=== PATIENT | male | born 1950 | race Two or more races ===

== ENCOUNTER → 2020-04-16 13:19 | Outpatient (BNVA) | payer MEDICARE, MEDICAID, SELFPAY | PROVIDERS: PCP Internal Medicine; Referring Provider Internal Medicine; Visit Provider Urology | DX: C61 Malignant neoplasm of prostate (principal); R97.21 Rising PSA following treatment for malignant neoplasm of prostate | CPT/HCPCS: 96372; 99212; J9217 ==

== ENCOUNTER → 2020-04-26 09:57 | Outpatient (REF) | payer MEDICARE, MEDICAID, SELFPAY ==
--- NOTE | 2020-04-26 10:01 | NM_ITS ---
EXAMINATION: NM BONE SCAN OF THE WHOLE BODY CLINICAL INFORMATION: Malignant neoplasm of prostate. Lower back pain. COMPARISON: No previous bone scan or radiographs are available for comparison. TECHNIQUE: Multiple gamma scintillation camera images of the whole body were performed 3 hours following the intravenous administration of 34 mCi Tc-99m MDP. FINDINGS: In the head, no significant abnormalities are present. In the thoracic cage and upper extremities, there is minimally increased activity in the acromioclavicular joint and sternoclavicular joints bilaterally and at the costochondral junction of the right first rib. In the spine, no significant abnormalities are present. In the pelvis, no significant abnormalities are present. In the lower extremities, there is mildly increased activity in both knees, most prominently in the medial compartment of the left knee in the patellar compartment of the right knee. No other definite bony abnormalities are noted. The urinary bladder and faint visualization of both kidneys are noted. NM/NM bone scan whole body IMPRESSION: A few mild nonspecific abnormalities are noted as described above and these are all likely arthritic or traumatic in etiology. None of these abnormalities is strongly suspicious for metastatic disease.
== END ==
LOC: HO.NUCMED 09:57
PROVIDERS: Visit Provider Urology
DX: C61 Malignant neoplasm of prostate (principal); C79.51 Secondary malignant neoplasm of bone
CPT/HCPCS: 78306; A9503

== ENCOUNTER → 2020-08-15 08:53 | Outpatient (BNVA) | payer MEDICARE, MEDICAID, SELFPAY | PROVIDERS: PCP Internal Medicine; Visit Provider Urology | DX: Z13.89 Encounter for screening for other disorder (principal) | CPT/HCPCS: Q3014 ==

== ENCOUNTER 2020-10-08 12:55 | Outpatient (REF) | payer MEDICARE, MEDICAID, SELFPAY ==
[2020-10-08 15:31] LABS: Prostate Specific Antigen 2.89 ng/mL (<0.05-4.0)
[2020-10-12 10:11] LABS: Testosterone, Total 4 ng/dL (250-1100)
== END 2020-10-08 12:56 | disposition home or self-care (01) ==
LOC: HO.LAB 12:55
PROVIDERS: PCP Internal Medicine; Visit Provider Urology
DX: N40.1 Benign prostatic hyperplasia with lower urinary tract symptoms (principal); N13.8 Other obstructive and reflux uropathy; E11.9 Type 2 diabetes mellitus without complications; C61 Malignant neoplasm of prostate; R97.21 Rising PSA following treatment for malignant neoplasm of prostate; Z88.8 Allergy status to other drugs, medicaments and biological substances; Z12.5 Encounter for screening for malignant neoplasm of prostate
CPT/HCPCS: 36415; 84153; 84403; 96402; 99212; J9217

== ENCOUNTER → 2021-02-26 10:39 | Outpatient (BNVA) | payer MEDICARE, MEDICAID, SELFPAY | PROVIDERS: Visit Provider Urology | DX: C61 Malignant neoplasm of prostate (principal) | CPT/HCPCS: 99212 ==

== ENCOUNTER → 2021-04-01 09:56 | Outpatient (BNVA) | payer MEDICARE, MEDICAID, SELFPAY | PROVIDERS: Visit Provider Urology | DX: R97.21 Rising PSA following treatment for malignant neoplasm of prostate (principal); C61 Malignant neoplasm of prostate; C79.51 Secondary malignant neoplasm of bone; M85.80 Other specified disorders of bone density and structure, unspecified site; E11.9 Type 2 diabetes mellitus without complications; Z88.8 Allergy status to other drugs, medicaments and biological substances; Z79.899 Other long term (current) drug therapy | CPT/HCPCS: 96402; 99212; J9217 ==

== ENCOUNTER 2021-04-17 10:23 | Outpatient (REF) | payer MEDICARE, MEDICAID, SELFPAY | END 2021-04-17 10:24 | disposition home or self-care (01) | LOC: HO.LAB 10:23 | PROVIDERS: Visit Provider Internal Medicine | DX: Z20.822 Contact with and (suspected) exposure to COVID-19 (principal) | CPT/HCPCS: C9803; U0003; U0005 ==

== ENCOUNTER 2021-06-27 08:39 | Outpatient (REF) | payer MEDICARE, MEDICAID, SELFPAY ==
--- NOTE | ~2021-06-27 | MM_ITS ---
EXAMINATION: BONE DENSITOMETRY CLINICAL INDICATION: Osteopenia. COMPARISON: This is the patient's baseline examination. TECHNIQUE: Using a [employer] DXA System (software version: 13.1) manufactured by [employer], dual-energy x-ray absorptiometry was performed of the lumbar spine and left hip. The images are of good technical quality. Summary results are attached. FINDINGS: AP SPINE L1-L4: BMD 1.074 g/cm2, Z-score -1.3, T-score -1.2, osteopenia. LEFT FEMUR, NECK: BMD 0.762 g/cm2, Z-score -1.5, T-score -2.4, osteopenia. LEFT FEMUR, TOTAL: BMD 0.939 g/cm2, Z-score -0.8, T-score -1.1, osteopenia. IDENTIFIED RISK FACTORS: None listed. HISTORY OF FRACTURE: None listed. MEDICATIONS: Multivitamin. MM/XR DEXA axial skeleton IMPRESSION: 1. DIAGNOSIS: Osteopenia based on the lowest T-score value of -2.4 in the femoral neck applying World Health Organization criteria. 2. 10-YEAR FRACTURE RISK PREDICTION, FRAX: Major osteoporotic fracture (clinical spine, forearm, hip or shoulder) 4.9%. Hip fracture 1.5%. 3. Treatment Recommendations: NOF guidelines recommend consideration for treatment in postmenopausal women and men age 50 and older presenting with the following: -A hip or vertebral (clinical or morphometric) fracture. -T-score less than or equal to -2.5 at the femoral neck or spine after appropriate evaluation to exclude secondary causes. -Low bone mass at the hip or spine and a 10-year fracture probability by FRAX of greater than or equal to 3% for hip fracture or greater than or equal to 20% for major osteoporotic fracture based on the [place] adapted WHO algorithm. 4. Other Recommendations: All treatment decisions require clinical judgment and consideration of individual patient factors, including patient preferences, comorbidities, previous drug use, risk factors not captured in the FRAX model (e.g. frailty, falls, vitamin D deficiency, increased bone turnover, interval significant decline in bone density) and possible under or overestimation of fracture risk by FRAX. Additional medical evaluation for secondary cause of low bone mineral density may be appropriate. FUTURE SCAN RECOMMENDATION: People with diagnosed cases of osteoporosis or at high risk for fracture should have regular bone mineral density tests. For patients eligible for Medicare, routine testing is allowed once every 2 years. The testing frequency can be increased to one year for patients who have rapidly progressing disease, those who are receiving or discontinuing medical therapy to restore bone mass, or have additional risk factors.
== END 2021-06-27 08:40 | disposition home or self-care (01) ==
LOC: HO.MAMMO 08:39
PROVIDERS: Visit Provider Urology
DX: Z13.820 Encounter for screening for osteoporosis (principal); M85.88 Other specified disorders of bone density and structure, other site; C61 Malignant neoplasm of prostate; R97.21 Rising PSA following treatment for malignant neoplasm of prostate
CPT/HCPCS: 77080

== ENCOUNTER → 2021-07-04 09:56 | Outpatient (BNVA) | payer MEDICARE, MEDICAID, SELFPAY | PROVIDERS: Visit Provider Urology | DX: R97.21 Rising PSA following treatment for malignant neoplasm of prostate (principal); C61 Malignant neoplasm of prostate; M85.80 Other specified disorders of bone density and structure, unspecified site | CPT/HCPCS: 99212 ==

== ENCOUNTER 2021-09-22 08:37 | Outpatient (REF) | payer MEDICARE, MEDICAID, SELFPAY ==
[2021-09-22 10:23] LABS: Prostate Specific Antigen 1.85 ng/mL (<0.05-4.0)
[2021-09-26 13:32] LABS: Testosterone, Total 5 ng/dL (250-1100)
== END 2021-09-22 08:38 | disposition home or self-care (01) ==
LOC: HO.LAB 08:37
PROVIDERS: PCP Internal Medicine; Visit Provider Urology
DX: Z12.5 Encounter for screening for malignant neoplasm of prostate (principal); C61 Malignant neoplasm of prostate
CPT/HCPCS: 36415; 84153; 84403

== ENCOUNTER → 2021-09-30 09:12 | Outpatient (BNVA) | payer MEDICARE, MEDICAID, SELFPAY | PROVIDERS: PCP Internal Medicine; Visit Provider Urology | DX: C61 Malignant neoplasm of prostate (principal); M85.80 Other specified disorders of bone density and structure, unspecified site | CPT/HCPCS: 96372; 96402; 99212; J0897; J9217 ==

== ENCOUNTER → 2022-01-09 09:30 | Outpatient (REF) | payer MEDICARE, MEDICAID, SELFPAY ==
--- NOTE | ~2022-01-09 | NM_ITS ---
EXAMINATION: DE BONE SCAN OF THE WHOLE BODY CLINICAL INFORMATION: Malignant neoplasm of prostate. COMPARISON: The previous bone scan dated 04/26/2020 is available for comparison. TECHNIQUE: Multiple gamma scintillation camera images of the whole body were performed 3.25 hours following the intravenous administration of 36 mCi Tc-99m MDP. FINDINGS: In the head, there is a small focus of mildly increased activity in the left temporomandibular joint region. There are also mild foci of increased activity in the anterior mandible, likely due to dental disease. In the thoracic cage and upper extremities, there is minimally increased activity in the acromioclavicular and sternoclavicular joints bilaterally. In the spine, there is a moderately intense small focus of increased activity present near the midline in the L5 vertebral body. There is minimal prominence of the spinous processes of L2 and L3. In the pelvis, no significant abnormalities are present. In the lower extremities, there is mildly increased activity diffusely in the left knee and in the right patella and in a small focus in the mid tibial plateau on the right all likely degenerative or traumatic. There is mildly increased activity in the proximal right foot also likely arthritic or traumatic. No other definite bony abnormalities are noted. The urinary bladder and faint visualization of both kidneys are noted. Compared to the previous bone scan dated 04/26/2020, the prominent abnormality in the L5 vertebral body is new. The small mild abnormality in the left temporomandibular joint region is also new. An abnormality previously present in the medial compartment of the left knee was much more prominent than mild abnormality present at this site on the current study. The remainder the scan is unchanged. DE/DE bone scan whole body IMPRESSION: 1. A prominent new abnormality in the L5 vertebral body is strongly suspicious for a metastasis. This could be further characterized with MRI of the lumbar spine, performed without and with intravenous contrast. 2. An additional abnormality in the left temporomandibular joint region is also suspicious for metastasis and is also new. 3. A few additional mild nonspecific abnormalities are noted as described above and these are all likely arthritic or traumatic in etiology. None of these abnormalities is strongly suspicious for metastatic disease.
[2022-01-09 11:23] LABS: Alanine Aminotransferase 30 U/L (0-40); Alkaline Phosphatase 70 U/L (39-117); Aspartate Amino Transferase 26 U/L (5-37); Bilirubin Direct < 0.2 mg/dL (0.0-0.5); Bilirubin Total 0.3 mg/dL (0.0-1.0); Total Protein 7.5 g/dL (6.5-8.0)
[2022-01-09 11:33] LABS: Prostate Specific Antigen 4.08 ng/mL (<0.05-4.0)
[2022-01-14 15:47] LABS: Testosterone, Total 5 ng/dL (250-1100)
== END ==
LOC: HO.NUCMED 09:30
PROVIDERS: Visit Provider Urology
DX: Z12.5 Encounter for screening for malignant neoplasm of prostate (principal); C61 Malignant neoplasm of prostate; C79.51 Secondary malignant neoplasm of bone; R97.21 Rising PSA following treatment for malignant neoplasm of prostate; E29.1 Testicular hypofunction
CPT/HCPCS: 36415; 78306; 80076; 84153; 84403; A9503

== ENCOUNTER → 2022-01-22 10:19 | Outpatient (BNVA) | payer MEDICARE, MEDICAID, SELFPAY | PROVIDERS: PCP Internal Medicine; Visit Provider Urology | DX: R97.21 Rising PSA following treatment for malignant neoplasm of prostate (principal); C61 Malignant neoplasm of prostate; M85.80 Other specified disorders of bone density and structure, unspecified site | CPT/HCPCS: 99212 ==

== ENCOUNTER 2022-03-18 10:15 | Outpatient (REF) | payer MEDICARE, MEDICAID, SELFPAY ==
[2022-03-18 11:19] LABS: Estimated Glomerular Filt Rate > 60
[2022-03-18 11:33] LABS: Prostate Specific Antigen 2.77 ng/mL (<0.05-4.0)
[2022-03-22 13:17] LABS: Testosterone, Total 2 ng/dL (250-1100)
== END 2022-03-18 10:16 | disposition home or self-care (01) ==
LOC: HO.LAB 10:15
PROVIDERS: Visit Provider Urology
DX: Z12.5 Encounter for screening for malignant neoplasm of prostate (principal); R97.21 Rising PSA following treatment for malignant neoplasm of prostate
CPT/HCPCS: 36415; 82565; 84153; 84403

== ENCOUNTER → 2022-04-03 08:43 | Outpatient (BNVA) | payer MEDICARE, MEDICAID, SELFPAY | PROVIDERS: Visit Provider Urology | DX: M85.80 Other specified disorders of bone density and structure, unspecified site (principal); C61 Malignant neoplasm of prostate; R97.21 Rising PSA following treatment for malignant neoplasm of prostate | CPT/HCPCS: 96372; 96402; 99212; J0897; J9217 ==

== ENCOUNTER 2022-04-30 13:15 | Outpatient (AMB) | payer MEDICARE, MEDICAID, SELFPAY ==
--- NOTE | 2022-04-30 13:21 | MHC.OFFVIS ---
Intake Intake Visit Reasons: Prostate cancer- 1month follow up Intake Note: Patient is present for Follow Up Urology Medication: Tamsulosin, Abiraterone, Prednisone Blood Thinner: Allergies metformin Allergy (Intermediate, Verified 04/15/23 10:07) Stomach Upset HPI HPI Comments History of Present Illness Details Christiano is a pleasant male. He is a patient of Dr. Coronado. He is seen for the following urologic conditions - prostate cancer Thai translation performed in office by qualified biomedical engineering supervisor Imaging shows some progression of spinal metastatic disease Is feeling pain in L4-L5 region Discussed cycling abiraterone 1 month on and 1 month off - there is some data to suggest minimizing clonal expansion through cyclic anti-androgen use Discussed referral to Oncology for question of chemotherapy Will also referred to Radiation Oncology at [facility] for assessment up of 177 tagged therapy Prostate cancer Justice 9 initial therapy radiation in [place] with injections 2013 - Last Lupron 04/07 Castrate resistant non metastatic prostate cancer Diagnosed 2015 Initial pathology Jennifer 7 and 9 Initial therapy external beam radiation with 2 years of hormones Subsequent slight rise in PSA and was started on Casodex PSA - 08/02 .4, 05/04 .4, 04/05 2.0, 08/04 2.3, 10/04 2.9 T 4, 04/06 7.0, 06/07 T 3, 10/05 1.8 T 5, 01/05 4.1 T5, 04/07 2.7 T2 Imaging - 05/05 bone scan negative - 06/07 DEXA scan osteopenia - 01/05 Bone Scan New L5 changes - 01/05 PT-CT [facility] multiple small spinal metastases and question of kim involvement Current therapy GnRH with anti androgen initiated 01/04 Lower urinary tract symptoms Urgency and frequency Good response to tamsulosin PFSH Medical History Hemorrhoids Hematochezia Anemia Diabetes mellitus Prostate cancer Surgical History History of appendectomy Family History Mother Diabetes Father Cancer Social History Household Members: Spouse Housing: Apartment Alcohol intake: former Patient Tobacco Use Status: Never used Tobacco service: No Current occupational status: retired Review of Systems Const Denies chills and Denies fever(s) Card Reports no additional complaints and Denies syncope Resp Denies cough GI Denies abdominal pain and Denies heartburn Reports as per HPI and Denies change in libido Neuro Denies syncope Psych Denies change in libido Endo Denies change in libido Physical Exam Const General: cooperative, healthy appearing, comfortable and no acute distress Orientation/consciousness: patient oriented x3 HEENT Face and sinus: Yes normal facial exam Mouth: moist mucous membranes Neck Neck: Yes normal visual inspection, Yes full ROM and Yes trachea midline Chest Chest palpation & inspection: normal inspection of the chest Resp Effort & Inspection: normal respiratory effort, able to speak in complete sentences and no respiratory distress GI Inspection: Yes normal to inspection Back/Spine/Pelvis Cervical Spine: normal cervical lordosis Thoracic/Lumbar Spine: thoracic and lumbar spine normal to inspection Skin General skin exam: no rashes or lesions noted Neuro General: patient oriented x3, gait normal, tone normal and moves all extremities Extrem General: Yes normal to inspection and Yes capillary refill normal Assessment & Plan Assessment & Plan (1) Prostate cancer metastatic to bone: Code(s): C61 - Malignant neoplasm of prostate; C79.51 - Secondary malignant neoplasm of bone (2) Osteopenia due to cancer therapy: Code(s): M85.80 - Other specified disorders of bone density and structure, unspecified site Plan Bone scan Metastatic prostate cancer Orders: Orders NM bone scan whole body 04/30/22 C79.51 - Secondary malignant neoplasm of bone, C61 - Malignant neoplasm of prostate Referrals Hematology & Oncology Referral C61 - Malignant neoplasm of prostate, C79.51 - Secondary malignant neoplasm of bone Patient Instructions: Imaging studies, laboratory and physical exam results were discussed and reviewed in detail. No major barriers to patient understanding were identified. An opportunity to ask questions regarding the treatment plan was provided. All questions were answered. The patient expressed understanding and agreement with the above treatment plan. The patient is aware they should contact our office by phone for worsening of their current condition or the appearance of new urologic symptoms. Compliance is encouraged with any medications and followup testing that is ordered. It is a privilege to participate in the urologic care of your patient. If you have any questions or concerns regarding treatment for the above conditions, or other urologic issues, please do not hesitate to contact me. The office telephone contact is [phone]. This note is constructed using voice recognition software. While every effort has been made to ensure accuracy c web developer errors may have been included. Yours sincerely, Dr Mario Al MD, [facility] - Urology Providers of Expert, Compassionate Care for the Genitourinary System Coding Level of Care Code Est Pt Level 3 (32035) Diagnoses Prostate cancer metastatic to bone C61; C79.51 Osteopenia due to cancer therapy M85.80
== END 2022-04-30 14:40 | disposition home or self-care (01) ==
LOC: HO.HUSH 13:16
PROVIDERS: Visit Provider Urology
DX: C61 Malignant neoplasm of prostate (principal); C79.51 Secondary malignant neoplasm of bone; M85.80 Other specified disorders of bone density and structure, unspecified site
CPT/HCPCS: 99213; 99499

== ENCOUNTER → 2022-04-30 13:15 | Outpatient (BNVA) | payer MEDICARE, MEDICAID, SELFPAY | PROVIDERS: Visit Provider Urology | DX: C61 Malignant neoplasm of prostate (principal); C79.51 Secondary malignant neoplasm of bone; M85.80 Other specified disorders of bone density and structure, unspecified site | CPT/HCPCS: 99212 ==

== ENCOUNTER → 2022-06-18 10:48 | Outpatient (REF) | payer MEDICARE, MEDICAID, SELFPAY ==
--- NOTE | ~2022-06-18 | NM_ITS ---
EXAMINATION: NM BONE SCAN OF THE WHOLE BODY CLINICAL INFORMATION: Secondary malignant neoplasm of the bone. COMPARISON: 01/09/2022 TECHNIQUE: Multiple gamma scintillation camera images of the whole body were performed 2.5 hours following the intravenous administration of 36 mCi Tc-99m MDP. FINDINGS: In the head, once again there is uptake in the region of the left zygoma/temporal region/TMJ. This is similar to previous. There is also some spotty uptake in the maxillary and mandibular bones similar to previous. Possible dental disease here. In the thoracic cage and upper extremities, visualized rib uptake is felt to be within normal limits. Partially visualized upper extremities are comparable to previous. Some uptake in the left shoulder and left AC joint may be degenerative in nature. In the spine, once again some mottled activity in the thoracic spine. Once again intense activity in the region of L5. Similar to previous. More minimal activity in the region of L2 and L3 but this is also similar to previous. Not felt to be increasing. This could be degenerative in nature. In the pelvis, unremarkable. Urine contamination is noted. In the lower extremities, some spotty uptake about the knees similar to previous. Likely degenerative in nature. No other definite bony abnormalities are noted. The urinary bladder and faint visualization of both kidneys are noted. NM/NM bone scan whole body IMPRESSION: This exam is very comparable to previous. Areas of uptake described were seen previously. Importantly no new focus is identified.
== END ==
LOC: HO.NUCMED 10:48
PROVIDERS: Visit Provider Urology
DX: C61 Malignant neoplasm of prostate (principal); C79.51 Secondary malignant neoplasm of bone
CPT/HCPCS: 78306; A9503

== ENCOUNTER 2022-07-24 08:13 | Emergency (ER) | payer MEDICARE, MEDICAID, SELFPAY ==
--- NOTE | ~2022-07-24 | XR_ITS ---
EXAMINATION: XR ABDOMEN COMPLETE CLINICAL INDICATION: Constipation. COMPARISON: None TECHNIQUE: 2 views of the abdomen. FINDINGS: There is a nonobstructive bowel gas pattern. Mild to moderate stool seen within the colon distally to the rectum. No abnormal calcifications are seen. Mild multilevel degenerative changes are seen in the thoracolumbar spine. XR/XR abdomen min 2V IMPRESSION: 1. Nonobstructive bowel gas pattern. 2. Mild to moderate colonic stool burden.
[2022-07-24 08:24] VITALS: BP 160/66; PULSE 68; RESP 18; TEMP 36.6; O2SAT 98; BMI 28.1
[2022-07-24 09:24] LABS: MANUAL DIFF FLAG NO
[2022-07-24 09:34] LABS: Basophils Absolute Auto 0.1 X10*3/uL (0.0-0.2); Basophils Percent Auto 1.2 % (0-2); Eosinophils Absolute Auto 0.3 X10*3/uL (0.0-0.4); Eosinophils Percent Auto 3.4 % (0-4); Hematocrit 40.1 % (42.0-52.0); Hemoglobin 13.2 g/dl (14.0-18.0); Imm Gran Abs Auto 0.01 X10*3/uL (0.00-0.03); Imm Gran Pct Auto 0.1 % (0.0-0.4); Lymphocytes Absolute Auto 2.4 X10*3/uL (1.2-4.9); Lymphocytes Percent Auto 31.8 % (20-40); Mean Corpuscular HGB Conc 32.9 g/dl (31.0-36.0); Mean Corpuscular Hemoglobin 25.1 pg (27.0-33.0); Mean Corpuscular Volume 76.4 fL (80.0-98.0); Mean Platelet Volume 10.1 fL (9.4-12.4); Monocytes Absolute Auto 0.6 X10*3/uL (0.1-1.2); Monocytes Percent Auto 8.2 % (2-11); Neutrophils Absolute Auto 4.1 x10*3/uL (2.0-8.3); Neutrophils Percent Auto 55.3 % (45-73); Platelet Count 274 X10*3/uL (160-400); Red Blood Count 5.25 X10*6/uL (4.60-5.80); Red Cell Distribution Width 13.9 % (11.0-16.0); White Blood Count 7.4 X10*3/uL (4.8-10.8)
[2022-07-24 09:53] LABS: Alanine Aminotransferase 16 U/L (0-40); Albumin Level 3.8 g/dL (3.5-5.0); Alkaline Phosphatase 60 U/L (39-117); Anion Gap 12 (12-20); Aspartate Amino Transferase 19 U/L (5-37); Bilirubin Total 0.5 mg/dL (0.0-1.0); Blood Urea Nitrogen 18 mg/dL (9-16); Calcium 9.4 mg/dL (8.4-10.2); Carbon Dioxide 28 mmol/L (22-29); Chloride 103 mmol/L (96-108); Creatinine Clr Calc Pharmacy 77.8; Estimated Glomerular Filt Rate > 60; Glucose Random 113 mg/dL (60-115); Potassium 4.4 mmol/L (3.3-5.1); Sodium 139 mmol/L (135-145); Total Protein 6.7 g/dL (6.5-8.0)
--- NOTE | 2022-07-24 10:33 | ED.GENADULT ---
HPI - General Adult General Chief complaint: Abdominal Pain Stated complaint: constipation Time Seen by Provider: 07/24/22 08:58 Source: patient Mode of arrival: ambulatory Limitations: no limitations History of Present Illness HPI narrative: 71-year-old male presents with constipation. He has been having increased constipation over the last 4-5 days. He normally runs constipated takes MiraLax. He has been trying MiraLax without improvement. He does complain of some mild abdominal discomfort but no severe pain. Also reports some distention. He is passing flatus. Denies any history of abdominal surgeries. He says the symptoms are worse when he feels like he has to strain better when he rests. He has had no fevers or chills. Denies nausea vomiting. He denies any urinary frequency, urgency or dysuria. Symptoms are similar to previous but moderately worse. Related Data Home Medications Medication Instructions Recorded Confirmed amlodipine 10 mg tablet (Norvasc) 10 mg PO DAILY 04/16/20 04/29/22 atorvastatin 80 mg tablet (Lipitor) 80 mg PO DAILY 04/16/20 04/29/22 chlorhexidine gluconate 0.12 % 5 ml PO DAILY 04/16/20 04/29/22 mouthwash dulaglutide 1.5 mg/0.5 mL 0.5 mg subcut DAILY 04/16/20 04/29/22 subcutaneous pen injector (Trulicity) empagliflozin 25 mg tablet 25 mg PO DAILY 04/16/20 04/29/22 evolocumab 140 mg/mL subcutaneous 140 mg subcut Q2W 04/16/20 04/29/22 pen injector (Repatha SureFerminick) ezetimibe 10 mg tablet (Zetia) 10 mg PO DAILY 04/16/20 04/29/22 omeprazole 20 mg capsule,delayed 20 mg PO DAILY 04/16/20 04/29/22 release diclofenac sodium 1 % topical gel 1 g topical DAILY 03/30/22 04/29/22 (Voltaren Arthritis Pain) tamsulosin 0.4 mg capsule mg PO 04/30/22 Previous Rx's Medication Instructions Recorded prednisone 2.5 mg tablet 2.5 mg PO BID 30 days #60 tabs 04/01/21 abiraterone 250 mg tablet 1,000 mg PO DAILY 30 days #120 tabs 04/13/22 glycerin (adult) 1 supp MS DAILY PRN constipation 07/24/22 #12 ea magnesium hydroxide 400 mg/5 mL 5 ml PO DAILY PRN constipation 07/24/22 oral suspension (Milk of Magnesia) #355 mL Allergies Allergy/AdvReac Type Severity Reaction Status Date / Time metformin Allergy Intermediate Stomach Verified 04/30/22 13:22 Upset Review of Systems Review of Systems: CONSTITUTIONAL: Denies weight loss, fever and chills. HEENT: Denies changes in vision and hearing. RESPIRATORY: Denies SOB and cough. CV: Denies palpitations no CP. GI: Denies nausea, vomiting and diarrhea. : Denies dysuria and urinary frequency. MSK: Denies myalgia and joint pain. SKIN: Denies rash and pruritus. NEUROLOGICAL: Denies headache and syncope. PSYCHIATRIC: Denies recent changes in mood. Denies anxiety and depression. All other ROS are negative unless in HPI PMFSH Past Medical History Medical History Anemia Diabetes mellitus Hematochezia Hemorrhoids Prostate cancer Surgical History History of appendectomy Family History Family History Mother Diabetes Father Cancer Social History Social History Household Members: Spouse Housing: Apartment Alcohol intake: former Patient Tobacco Use Status: Never used Tobacco Advance Directives: No Advance Directives Information Provided: Yes service: No Current occupational status: retired Physical Exam ED Vital Signs: Vital Signs - 24 hr 07/24/22 08:24 Temperature 97.8 F Pulse Rate 68 Respiratory Rate 18 Blood Pressure 160/66 H Pulse Oximetry 98 Oxygen Delivery Method Room Air BMI result Body Mass Index 28.1 GEN: Well developed, no acute distress, alert, oriented HEENT: Normocephalic, atraumatic, normal external ears, nose appears normal, no oropharyngeal edema or exudates Eyes: Normal to appearance Neck: Supple, no lymphadenopathy Respiratory: Talks in complete sentences, no respiratory distress, clear to auscultation bilaterally Cardiovascular: Regular rate and rhythm, no murmurs rubs or gallops Abdomen: Soft, nontender, nondistended, no guarding, no rebound Back: No CVA tenderness Extremities: No clubbing cyanosis or edema Neurologic: No focal neurologic deficits, cranial nerves 2-12 intact, strength is 5/5 bilaterally, gait normal Skin: No rash Course Course Course Narrative: 71-year-old male with history of chronic constipation presents with abdominal discomfort, constipation. Is passing some flatus. Has some very mild distension but no tenderness, rebound or guarding. Will obtain an x-ray to rule out SBO although I doubt this diagnosis. Patient requires no analgesics. Consider milk of magnesia/magnesium citrate, etc.. Reevaluation(s) Reevaluation #1: The workup is complete. Patient is comfortable. Abdomen remains nontender. We discussed constipation care. He will be discharged at this time to follow-up on an as-needed basis. Time: 12:43 Medications Administered Discontinued Medications Generic Name Dose Route Start Last Admin Trade Name Freq PRN Reason Stop Dose Admin Magnesium Hydroxide 30 ml 07/24/22 10:42 07/24/22 11:19 Milk Of Magnesia 30 Ml Oral.Susp PO 07/24/22 10:43 30 ml ONCE ONE Administration Medical Decision Making Medical Decision Making [facility] Narrative: 71-year-old male presents constipation, difficulty with defecation. Exam was benign. Order laboratory analysis, x-ray, re-evaluate. Patient may require anti constipation medications depending on the diagnosis. Differential Diagnosis Differential Diagnoses: The differential diagnosis associated with the presentation includes (Constipation, bowel obstruction, ileus, slow transit, bloating) Admission/Observation Consideration of admission/observation: Escalation of care including admission/observation considered Lab Data [facility] Lab Attestation statement: I reviewed the patient's lab results. 07/24/22 09:21 07/24/22 09:21 Labs: Lab Results 07/24/22 07/24/22 Range/Units 09:21 09:21 WBC 7.4 (4.8-10.8) X10*3/uL RBC 5.25 (4.60-5.80) X10*6/uL Hgb 13.2 L (14.0-18.0) g/dl Hct 40.1 L (42.0-52.0) % MCV 76.4 L (80.0-98.0) fL MCH 25.1 L (27.0-33.0) pg MCHC 32.9 (31.0-36.0) g/dl RDW 13.9 (11.0-16.0) % Plt Count 274 (160-400) X10*3/uL MPV 10.1 (9.4-12.4) fL Immature Gran % (Auto) 0.1 (0.0-0.4) % Neut % (Auto) 55.3 (45-73) % Lymph % (Auto) 31.8 (20-40) % Hudspeth % (Auto) 8.2 (2-11) % Eos % (Auto) 3.4 (0-4) % Baso % (Auto) 1.2 (0-2) % Lymph # (Auto) 2.4 (1.2-4.9) X10*3/uL Hudspeth # (Auto) 0.6 (0.1-1.2) X10*3/uL Eos # (Auto) 0.3 (0.0-0.4) X10*3/uL Baso # (Auto) 0.1 (0.0-0.2) X10*3/uL Abs Immat Gran (auto) 0.01 (0.00-0.03) X10*3/uL Absolute Neuts (auto) 4.1 (2.0-8.3) x10*3/uL Absolute Nucleated RBC 0.000 (0.0-0.012) X10*3/uL Nucleated RBC % (auto) 0.0 (0.0-0.2) /100WBC Sodium 139 (135-145) mmol/L Potassium 4.4 (3.3-5.1) mmol/L Chloride 103 (96-108) mmol/L Carbon Dioxide 28 (22-29) mmol/L Anion Gap 12 (12-20) BUN 18 H (9-16) mg/dL Creatinine 0.89 (0.5-1.4) mg/dL Estim Creat Clear Calc 77.8 Estimated GFR > 60 Random Glucose 113 (60-115) mg/dL Calcium 9.4 (8.4-10.2) mg/dL Total Bilirubin 0.5 (0.0-1.0) mg/dL AST 19 (5-37) U/L ALT 16 (0-40) U/L Alkaline Phosphatase 60 (39-117) U/L Total Protein 6.7 (6.5-8.0) g/dL Albumin 3.8 (3.5-5.0) g/dL Independent Interpretation I performed an independent interpretation of an: Plain X-Ray (Of treatment: Moderate stool burden, no dilated bowel, no air-fluid levels) Radiology Impression Discussion of test interpretation with radiology: I have reviewed the radiologist's reading. (IMPRESSION: 1. Nonobstructive bowel gas pattern. 2. Mild to moderate colonic stool burden. Dictated By:Tom Dee MDSigned By:<Electronically signed by Tom Dee MD in OV>07/24/22 1018) Tests considered The following testing was considered but not selected: CT scan Prescription Management I considered prescription management with: Pain Medication Discharge Plan Discharge Clinical Impression: Constipation Patient Disposition: Home, Self-Care Instructions: Constipation (ED), Fleet Enema (ED) Prescriptions: New magnesium hydroxide [Milk of Magnesia] 400 mg/5 mL suspension 5 ml PO DAILY PRN (Reason: constipation) Qty: 355 0RF glycerin (adult) Suppository 1 supp MS DAILY PRN (Reason: constipation) Qty: 12 0RF No Action abiraterone 250 mg tablet 1,000 mg PO DAILY 30 Days Qty: 120 5RF Rx Instructions: must be taken on empty stomach, at least 1 hr before or 2 hrs after a meal/food Repatha SureClick 140 mg/mL pen injector 140 mg subcut Q2W ezetimibe [Zetia] 10 mg tablet 10 mg PO DAILY amlodipine [Norvasc] 10 mg tablet 10 mg PO DAILY chlorhexidine gluconate 0.12 % mouthwash 5 ml PO DAILY atorvastatin [Lipitor] 80 mg tablet 80 mg PO DAILY Trulicity 1.5 mg/0.5 mL pen injector 0.5 mg subcut DAILY Jardiance 25 mg tablet 25 mg PO DAILY omeprazole 20 mg capsule,delayed release(DR/EC) 20 mg PO DAILY prednisone 2.5 mg tablet 2.5 mg PO BID 30 Days Qty: 60 5RF tamsulosin 0.4 mg capsule PO diclofenac sodium [Voltaren Arthritis Pain] 1 % gel 1 g topical DAILY Referrals: [place],Zena, SCARF GLUER [Primary Care Provider] - Print Language: Uzbek
[2022-07-24] MEDS: Milk of Magnesia 30 ML ORAL.SUSP PO (11:19)
[2022-07-24 12:53] VITALS: BP 137/75; PULSE 70; RESP 18; O2SAT 94
== END 2022-07-24 12:55 | disposition home or self-care (01) ==
PROVIDERS: Emergency Provider Emergency Medicine; PCP Registered Nurse
DX: R10.9 Unspecified abdominal pain (principal); K59.00 Constipation, unspecified; D64.9 Anemia, unspecified; E11.9 Type 2 diabetes mellitus without complications
CPT/HCPCS: 36415; 74019; 80053; 85025; 99283; 99284

== ENCOUNTER → 2022-07-28 08:00 | Outpatient (BNVA) | payer MEDICARE, MEDICAID, SELFPAY | PROVIDERS: PCP Registered Nurse; Visit Provider Urology | DX: C61 Malignant neoplasm of prostate (principal); C79.51 Secondary malignant neoplasm of bone; M85.80 Other specified disorders of bone density and structure, unspecified site | CPT/HCPCS: Q3014 ==

== ENCOUNTER 2022-09-15 09:41 | Outpatient (REF) | payer MEDICARE, MEDICAID, SELFPAY ==
[2022-09-15 10:57] LABS: Prostate Specific Antigen 3.18 ng/mL (<0.05-4.0)
[2022-09-20 12:33] LABS: Testosterone, Total 3 ng/dL (250-1100)
== END 2022-09-15 09:42 | disposition home or self-care (01) ==
LOC: HO.LAB 09:41
PROVIDERS: Urology; Visit Provider Psychiatry & Neurology Neurology
DX: Z12.5 Encounter for screening for malignant neoplasm of prostate (principal); C61 Malignant neoplasm of prostate; C79.51 Secondary malignant neoplasm of bone
CPT/HCPCS: 36415; 84153; 84403

== ENCOUNTER → 2022-09-25 13:40 | Outpatient (BNVA) | payer MEDICARE, MEDICAID, SELFPAY | PROVIDERS: PCP Registered Nurse; Visit Provider Urology | DX: C61 Malignant neoplasm of prostate (principal); C79.51 Secondary malignant neoplasm of bone; M85.80 Other specified disorders of bone density and structure, unspecified site; R97.21 Rising PSA following treatment for malignant neoplasm of prostate | CPT/HCPCS: 96402; 99212; J9217 ==

== ENCOUNTER 2022-12-18 08:47 | Outpatient (REF) | payer MEDICARE, MEDICAID, SELFPAY ==
[2022-12-18 20:07] LABS: Prostate Specific Antigen 1.86 ng/mL (<0.05-4.0)
[2022-12-25 01:14] LABS: Testosterone, Total <1 ng/dL (250-1100)
== END 2022-12-18 08:48 | disposition home or self-care (01) ==
LOC: HO.LAB 08:47
PROVIDERS: PCP Urology; Visit Provider Urology
DX: Z12.5 Encounter for screening for malignant neoplasm of prostate (principal); C61 Malignant neoplasm of prostate; R97.20 Elevated prostate specific antigen [PSA]
CPT/HCPCS: 36415; 84153; 84403

== ENCOUNTER 2022-12-21 11:34 | Outpatient (AMB) | payer MEDICARE, MEDICAID, SELFPAY ==
--- NOTE | 2022-12-21 11:52 | A.OFFVIS_ITS ---
Intake Vital Signs 12/21/22 11:53 Height 5 ft 7 in Weight 200 lb 2.876 oz BMI 31.3 BP 154/74 H Blood Pressure Location Lt brachial Position Sitting Pulse 63 Intake Visit Reasons: Chronic Constipation Intake Note: Christiano presents in office as a new.patient for Chronic constipation. 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 Patient reports that he has been constipated and use MiraLax without any help, however now that he changed his diet he feels like he is doing better. Patient increase fluid in his diet as well as eating more soups and states that he is feeling better. Patient denies any melena, hematochezia, un intentional weight loss or ribbon like stools. Patient denies any dyspepsia, dysphagia or odynophagia. Patient denies any GI concerning symptoms today. When discussing with patient his history and his current treatment he tells me that he is seen gastroenterology at [facility]. He goes to see them in the [place], [place]. Patient had colonoscopy that showed rectal tumor and patient is seeing oncologist at [facility]. Patient reports to me that all his providers are at [facility] except for his PCP. PFSH Medical History Anemia Diabetes mellitus Hematochezia Hemorrhoids Prostate cancer Surgical History History of appendectomy Family History Mother Diabetes Father Cancer Social History Household Members: Spouse Housing: Apartment Alcohol intake: former Patient Tobacco Use Status: Never used Tobacco service: No Current occupational status: retired Review of Systems Const Denies weight gain and Denies weight loss ENT Reports no additional complaints, Denies dysphagia and Denies odynophagia Card Reports no additional complaints Resp Reports no additional complaints GI Denies abdominal pain, Denies belching, Denies melena, Denies bloating, Denies change in bowel habits, Denies dysphagia, Denies excessive flatus, Denies dyspepsia, Denies heartburn, Denies diarrhea, Denies loose stools, Denies nausea, Denies odynophagia and Denies vomiting Reports no additional complaints Musc Reports no additional complaints Neuro Reports no additional complaints Psych Reports no additional complaints Endo Reports no additional complaints Physical Exam Vital Signs: Last Vital Signs Pulse 63 12/21/22 11:53 BP 154/74 H 12/21/22 11:53 BMI result Body Mass Index 31.3 Const General: healthy appearing, no acute distress and well developed Nutritional Appearance: well nourished Orientation/consciousness: patient oriented x3 HEENT Head: Yes normal to inspection, Yes normocephalic and Yes atraumatic Face and sinus: Yes normal facial exam Mouth: Normal oral and palatal mucosa present Throat: Yes posterior oropharynx normal, Yes tonsils normal and Yes uvula midline Eyes General: appearance normal, both eyes and all related structures Neck Neck: Yes normal visual inspection, Yes full ROM and Yes trachea midline Thyroid: Thyroid normal Resp Effort & Inspection: normal respiratory effort, able to speak in complete sentences, no tracheal deviation and symmetric chest movement Auscultation: clear to auscultation bilaterally Cardio Rate: regular rate Heart sounds: S1 normal heart sound present and S2 normal heart sound present GI Inspection: Yes normal to inspection, No distended and Yes obesity Palpation (GI): Soft to palpation, not firm, nontender and No hepatosplenomegaly present Auscultation: normal bowel sounds General: Yes no CVA tenderness Back/Spine/Pelvis Back: no CVA tenderness Skin General skin exam: elasticity normal, turgor normal and dry skin Neuro General: patient oriented x3 Psych Appearance: grossly normal Mental Status: mental status grossly normal Speech and movement: Normal speech and movement present Affect: normal affect Attitude: cooperative Thought process: Normal thought process present Assessment & Plan Assessment & Plan (1) Chronic idiopathic constipation: Code(s): K59.04 - Chronic idiopathic constipation Plan: Patient will be following up with his providers at [facility]. Patient has appointment with them next month. He is agreeable to this plan. Patient will continue MiraLax and diet. Coding Level of Care Code New Pt Level 3 (86837) Diagnoses Chronic idiopathic constipation K59.04 Time Spent (min) 40 Comment 30 minutes spent with patient and additional 10 minutes spent reviewing his records
[2022-12-21 11:53] VITALS: BP 154/74; PULSE 63; BMI 31.3
== END 2022-12-21 12:18 | disposition home or self-care (01) ==
PROVIDERS: PCP Registered Nurse; Visit Provider Nurse Practitioner Family
DX: K59.04 Chronic idiopathic constipation (principal)
CPT/HCPCS: 99203

== ENCOUNTER → 2022-12-21 11:34 | Outpatient (BNVA) | payer MEDICARE, MEDICAID, SELFPAY | PROVIDERS: PCP Registered Nurse; Visit Provider Nurse Practitioner Family | DX: K59.04 Chronic idiopathic constipation (principal); C61 Malignant neoplasm of prostate; C79.51 Secondary malignant neoplasm of bone; C78.5 Secondary malignant neoplasm of large intestine and rectum; M85.80 Other specified disorders of bone density and structure, unspecified site; D63.0 Anemia in neoplastic disease | CPT/HCPCS: 99202 ==

== ENCOUNTER 2023-01-01 09:04 | Outpatient (AMB) | payer MEDICARE, MEDICAID, SELFPAY ==
--- NOTE | 2023-01-01 10:07 | A.OFFVIS_ITS ---
Intake Intake Visit Reasons: 3M PSA/Testo(pending) Intake Note: Patient is present for Follow Up LABS Urology Med: Tamsulosin, Abiraterone Antibiotic Allergy: None Blood Thinner: None Pharmacy: [facility] Allergies metformin Allergy (Intermediate, Verified 01/01/23 10:08) Stomach Upset Medication List - Last Reconciled 01/01/23 by Mario Al MD abiraterone 1,000 mg (4 x 250 mg) PO DAILY 30 days amlodipine (Norvasc) 10 mg PO DAILY atorvastatin (Lipitor) 80 mg PO DAILY diclofenac sodium 1% (Voltaren Arthritis Pain) 1 g topical DAILY dulaglutide (Trulicity) 0.5 mg subcut DAILY empagliflozin 25 mg PO DAILY evolocumab (Repatha SureClick) 140 mg subcut Q2W ezetimibe (Zetia) 10 mg PO DAILY glycerin (adult) 1 supp [place] DAILY PRN magnesium hydroxide (Milk of Magnesia) 5 mL PO DAILY PRN omeprazole 20 mg PO DAILY prednisone 2.5 mg PO BID 30 days tamsulosin 0.4 mg PO 1XD HPI HPI Comments History of Present Illness Details Christiano is a pleasant male. He is a patient of Dr. Coronado. He is seen for the following urologic conditions - prostate cancer Romanian translation performed in office by qualified medical illustrator 01/06 Lab work shows PSA controlled - 1.9 T <1 Continue cycling abiraterone per [facility] 3 month follow-up lab work with PSMA scan Recent diagnosis of colon cancer 07/09 bone scan shows no progression since December Has been cycling abiraterone 1 month on and 1 month off Prostate cancer Jennifer 9 initial therapy radiation in [place] with injections 2013 - Last Lupron 10/06 Castrate resistant non metastatic prostate cancer Diagnosed 2016 Initial pathology Jennifer 7 and 9 Initial therapy external beam radiation with 2 years of hormones Subsequent slight rise in PSA and was started on Casodex PSA - 08/02 .4, 05/04 .4, 04/05 2.0, 08/04 2.3, 10/04 2.9 T 4, 04/06 7.0, 06/07 T 3, 10/05 1.8 T 5, 01/05 4.1 T5, 04/07 2.7 T2, 06/08 1.9, 10/06 3.2 T 3 Imaging - 05/05 bone scan negative - 06/07 DEXA scan osteopenia - 01/05 Bone Scan New L5 changes - 01/05 PT-CT PSMA [facility] multiple small spinal metastases and question of kim involvement - 08/06 bone scan no further progressive changes. Remains with spinal Mets and question of kim involvement. Current therapy GnRH with anti androgen initiated 01/04 Lower urinary tract symptoms Urgency and frequency Good response to tamsulosin PFSH Medical History Anemia Diabetes mellitus Hematochezia Hemorrhoids Prostate cancer Surgical History History of appendectomy Family History Mother Diabetes Father Cancer Social History Household Members: Spouse Housing: Apartment Alcohol intake: former Patient Tobacco Use Status: Never used Tobacco service: No Current occupational status: retired Review of Systems Const Denies chills and Denies fever(s) Card Reports no additional complaints and Denies syncope Resp Denies cough GI Denies abdominal pain and Denies heartburn Reports as per HPI and Denies change in libido Neuro Denies syncope Psych Denies change in libido Endo Denies change in libido Physical Exam Const General: cooperative, healthy appearing, comfortable and no acute distress Orientation/consciousness: patient oriented x3 HEENT Face and sinus: Yes normal facial exam Mouth: moist mucous membranes Neck Neck: Yes normal visual inspection, Yes full ROM and Yes trachea midline Chest Chest palpation & inspection: normal inspection of the chest Resp Effort & Inspection: normal respiratory effort, able to speak in complete sentences and no respiratory distress GI Inspection: Yes normal to inspection Back/Spine/Pelvis Cervical Spine: normal cervical lordosis Thoracic/Lumbar Spine: thoracic and lumbar spine normal to inspection Skin General skin exam: no rashes or lesions noted Neuro General: patient oriented x3, gait normal, tone normal and moves all extremities Extrem General: Yes normal to inspection and Yes capillary refill normal Assessment & Plan Assessment & Plan (1) Prostate cancer metastatic to bone: Code(s): C61 - Malignant neoplasm of prostate; C79.51 - Secondary malignant neoplasm of bone (2) Osteopenia due to cancer therapy: Code(s): M85.80 - Other specified disorders of bone density and structure, unspecified site (3) Rising PSA following treatment for malignant neoplasm of prostate: Code(s): R97.21 - Rising PSA following treatment for malignant neoplasm of prostate Plan 3 month follow-up Prolia, GnRH, PSMA scan Orders: Orders Prostate Specific Antigen 3 Months C61 - Malignant neoplasm of prostate, C79.51 - Secondary malignant neoplasm of bone Testosterone, Total 3 Months C61 - Malignant neoplasm of prostate, C79.51 - Secondary malignant neoplasm of bone PET CT fusion skull to thigh 3 Months C61 - Malignant neoplasm of prostate, C79.51 - Secondary malignant neoplasm of bone Patient Instructions: Imaging studies, laboratory and physical exam results were discussed and reviewed in detail. No major barriers to patient understanding were identified. An opportunity to ask questions regarding the treatment plan was provided. All questions were answered. The patient expressed understanding and agreement with the above treatment plan. The patient is aware they should contact our office by phone for worsening of their current condition or the appearance of new urologic symptoms. Compliance is encouraged with any medications and followup testing that is ordered. It is a privilege to participate in the urologic care of your patient. If you have any questions or concerns regarding treatment for the above conditions, or other urologic issues, please do not hesitate to contact me. The office telephone contact is [phone]. This note is constructed using voice recognition software. While every effort has been made to ensure accuracy copper flotation operator errors may have been included. Yours sincerely, Dr Mario Al MD, HO [facility] - Urology Providers of Expert, Compassionate Care for the Genitourinary System Coding Level of Care Code Est Pt Level 4 (57881) Diagnoses Prostate cancer metastatic to bone C61; C79.51 Osteopenia due to cancer therapy M85.80 Rising PSA following treatment for malignant neoplasm of prostate R97.21
== END 2023-01-01 11:41 | disposition home or self-care (01) ==
PROVIDERS: PCP Registered Nurse; Visit Provider Urology
DX: C61 Malignant neoplasm of prostate (principal); C79.51 Secondary malignant neoplasm of bone; M85.80 Other specified disorders of bone density and structure, unspecified site; R97.21 Rising PSA following treatment for malignant neoplasm of prostate
CPT/HCPCS: 99214

== ENCOUNTER → 2023-01-01 09:04 | Outpatient (BNVA) | payer MEDICARE, MEDICAID, SELFPAY | PROVIDERS: Visit Provider Urology | DX: C61 Malignant neoplasm of prostate (principal); C79.51 Secondary malignant neoplasm of bone; M85.80 Other specified disorders of bone density and structure, unspecified site; R97.21 Rising PSA following treatment for malignant neoplasm of prostate | CPT/HCPCS: 99212 ==

== ENCOUNTER 2023-01-07 10:30 | Outpatient (REF) | payer MEDICARE, MEDICAID, SELFPAY ==
[2023-01-07 13:30] LABS: Creatinine Urine 175.69 mg/dL
[2023-01-07 13:50] LABS: Microalbum/Creatinine Ratio Ur 832.7 ug/mg cr (<30)
== END 2023-01-07 10:31 | disposition home or self-care (01) ==
LOC: HO.HHCL 10:30
PROVIDERS: Visit Provider Registered Nurse
DX: E11.21 Type 2 diabetes mellitus with diabetic nephropathy (principal)
CPT/HCPCS: 82043

== ENCOUNTER 2023-04-05 08:58 | Outpatient (REF) | payer MEDICARE, MEDICAID, SELFPAY ==
[2023-04-05 10:47] LABS: Prostate Specific Antigen 2.46 ng/mL (<0.05-4.0)
== END 2023-04-05 08:59 | disposition home or self-care (01) ==
LOC: HO.LAB 08:58
PROVIDERS: PCP Registered Nurse; Visit Provider Urology
DX: C61 Malignant neoplasm of prostate (principal); C79.51 Secondary malignant neoplasm of bone; Z12.5 Encounter for screening for malignant neoplasm of prostate
CPT/HCPCS: 36415; 84153; 84403

== ENCOUNTER 2023-04-15 09:36 | Outpatient (AMB) | payer MEDICARE, MEDICAID, SELFPAY ==
--- NOTE | 2023-04-15 10:01 | A.OFFVIS_ITS ---
Intake Intake Visit Reasons: Three month follow-up, GnRH, Prolia, PMS a scan Intake Note: Patient is Present for Follow Up/Injection Urology Medication: Abiraterone, Tamsulosin Antibiotic Allergies: none Blood Thinners: None Allergies metformin Allergy (Intermediate, Verified 04/15/23 10:07) Stomach Upset Medication List - Last Reconciled 04/15/23 by Mario Al MD abiraterone 1,000 mg (4 x 250 mg) PO DAILY 30 days amlodipine (Norvasc) 10 mg PO DAILY atorvastatin (Lipitor) 80 mg PO DAILY diclofenac sodium 1% (Voltaren Arthritis Pain) 1 g topical DAILY dulaglutide (Trulicity) 0.5 mg subcut DAILY empagliflozin 25 mg PO DAILY evolocumab (Repatha SureClick) 140 mg subcut Q2W ezetimibe (Zetia) 10 mg PO DAILY glycerin (adult) 1 supp [place] DAILY PRN magnesium hydroxide (Milk of Magnesia) 5 mL PO DAILY PRN omeprazole 20 mg PO DAILY prednisone 2.5 mg PO BID 30 days tamsulosin 0.4 mg PO DAILY 90 days HPI HPI Comments History of Present Illness Details Christiano is a pleasant male. He is a patient of Dr. Coronado. He is seen for the following urologic conditions - prostate cancer Burundian translation performed in office by qualified medical terminologist 04/08 PSA 2.5 - still staying in control Had colostomy for colorectal cancer. Continue cycling abiraterone GnRH and Prolia today Labs in 3 months with PET-CT - will likely consider monthly denosumab 01/06 Lab work shows PSA controlled - 1.9 T <1 Continue cycling abiraterone per [facility] 3 month follow-up lab work with PSMA sca n Recent diagnosis of colon cancer 07/09 bone scan shows no progression since December Has been cycling abiraterone 1 month on and 1 month off Prostate cancer Dumfries 9 initial therapy radiation in [place] with injections 2013 - Last Lupron 10/06 Castrate resistant non metastatic prostate cancer Diagnosed 2015 Initial pathology Dumfries 7 and 9 Initial therapy external beam radiation with 2 years of hormones Subsequent slight rise in PSA and was started on Casodex PSA - 08/02 .4, 05/04 .4, 04/05 2.0, 08/04 2.3, 10/04 2.9 T 4, 04/06 7.0, 06/07 T 3, 10/05 1.8 T 5, 01/05 4.1 T5, 04/07 2.7 T2, 06/08 1.9, 10/06 3.2 T 3 Imaging - 05/05 bone scan negative - 06/07 DEXA scan osteopenia - 01/05 Bone Scan New L5 changes - 01/05 PT-CT PSMA [facility] multipl e small spinal metastases and question of kim involvement - 08/06 bone scan no further progressive changes. Remains with spinal Mets and question of kim involvement. Current therapy GnRH with anti androgen initiated 01/04 Lower urinary tract symptoms Urgency and frequency Good response to tamsulosin Bone protection in metastatic prostate cancer setting (NCCN MS-75) The NCCN Guidelines Panel recommends screening and treatment for osteoporosis according to guidelines for the general population from the National Osteoporosis Foundation.666 A baseline bone mineral density study should be considered for the patients on ADT. The National Osteoporosis Foundation guidelines include: 1) calcium (1000?1200 mg daily from food and supplements) and vitamin D3 (400?1000 IU daily); and 2) additional treatment for males aged greater than or equal to 50 years with low bone mass (T-score between -1.0 and - 2.5, osteopenia) at the femoral neck, total hip, or lumbar spine by dual-energy x-ray absorptiometry (DEXA) scan and a 10-year probability of hip fracture greater than or equal to 3% A baseline DEXA scan before start of therapy and a follow-up DEXA scan after one year of therapy is recommended by the International Society for Clinical Densitometry to monitor response Denosumab (120mg) every 4 weeks (category 1, preferred) every 3 to 4 weeks is recommended for patients with CRPC and bone metastases to prevent or delay disease-associated SREs. SREs include pathologic fractures, spinal cord compression, operation, or EBRT to bone. The optimal duration of denosumab in patients with bone metastases remains unclear. Oral hygiene, baseline dental evaluation for high-risk individuals, and avoidance of invasive dental surgery during therapy are recommended to reduce the risk of ONJ. If invasive dental surgery is necessary, therapy should be deferred until the dentist confirms that the patient has healed completely from the dental procedure. Supplemental calcium and vitamin D are recommended to prevent hypocalcemia in patients receiving either denosumab or zoledronic acid. Hypocalcemia should be corrected before starting denosumab, and serum calcium monitoring is required for denosumab with repletion as needed. [facility] Medical History Hemorrhoids Hematochezia Anemia Diabetes mellitus Prostate cancer Surgical History History of appendectomy Family History Mother Diabetes Father Cancer Social History Household Members: Spouse Housing: Apartment Alcohol intake: former Patient Tobacco Use Status: Never used Tobacco service: No Current occupational status: retired Review of Systems Const Denies chills and Denies fever(s) Card Reports no additional complaints and Denies syncope Resp Denies cough GI Denies abdominal pain and Denies heartburn Reports as per HPI and Denies change in libido Neuro Denies syncope Psych Denies change in libido Endo Denies change in libido Physical Exam Const General: cooperative, healthy appearing, comfortable and no acute distress Orientation/consciousness: patient oriented x3 HEENT Face and sinus: Yes normal facial exam Mouth: moist mucous membranes Neck Neck: Yes normal visual inspection, Yes full ROM and Yes trachea midline Chest Chest palpation & inspection: normal inspection of the chest Resp Effort & Inspection: normal respiratory effort, able to speak in complete sentences and no respiratory distress GI Inspection: Yes normal to inspection Back/Spine/Pelvis Cervical Spine: normal cervical lordosis Thoracic/Lumbar Spine: thoracic and lumbar spine normal to inspection Skin General skin exam: no rashes or lesions noted Neuro General: patient oriented x3, gait normal, tone normal and moves all extremities Extrem General: Yes normal to inspection and Yes capillary refill normal Office Meds Prolia 60 mg/mL subcutaneous syringe Performing Provider: Mario Al MD [facility] Administered by: Danelle Carter RN on 04/15/23 10:42 Dose Route Admin Location Dispensed Lot Number Expiration Date [facility] 60 mg subcut left arm 1 mL [id number] 07/14/25 00724-092-37 [employer] Eligard (6 month) 45 mg (6 month) subcutaneous syringe Performing Provider: Mario Al MD Performing Location[facility] Administered by: Danelle Carter RN on 04/15/23 10:42 Dose Route Admin Location Dispensed Lot Number Expiration Date [facility] 45 mg subcut right arm 45 mg [id number] 03/17/24 86100-549-48 [employer] Assessment & Plan Assessment & Plan (1) Osteopenia due to cancer therapy: Code(s): M85.80 - Other specified disorders of bone density and structure, unspecified site (2) Prostate cancer metastatic to bone: Code(s): C61 - Malignant neoplasm of prostate; C79.51 - Secondary malignant neoplasm of bone Plan Combination hormone blockade Continue surveillance imaging and lab work Orders: Orders Creatinine 3 Months C61 - Malignant neoplasm of prostate, C79.51 - Secondary malignant neoplasm of bone AMB Denosumab Injection Practice Supplied Today M85.80 - Other specified di sorders of bone density and structure, unspecified site Prostate Specific Antigen 3 Months C61 - Malignant neoplasm of prostate, C79.51 - Secondary malignant neoplasm of bone Testosterone, Total 3 Months C61 - Malignant neoplasm of prostate, C79.51 - Secondary malignant neoplasm of bone Blood Urea Nitrogen 3 Months C61 - Malignant neoplasm of prostate, C79.51 - Secondary malignant neoplasm of bone PET CT fusion skull to thigh 3 Months C61 - Malignant neoplasm of prostate, C79.51 - Secondary malignant neoplasm of bone AMB Leuprolide Injection - Practice Supplied Today C61 - Malignant neoplasm of prostate, C79.51 - Secondary malignant neoplasm of bone Patient Instructions: Imaging studies, laboratory and physical exam results were discussed and reviewed in detail. No major barriers to patient understanding were identified. An opportunity to ask questions regarding the treatment plan was provided. All questions were answered. The patient expressed understanding and agreement with the above treatment plan. The patient is aware they should contact our office by phone for worsening of their current condition or the appearance of new urologic symptoms. Compliance is encouraged with any medications and followup testing that is ordered. It is a privilege to participate in the urologic care of your patient. If you have any questions or concerns regarding treatment for the above conditions, or other urologic issues, please do not hesitate to contact me. The office telephone contact is [phone]. This note is constructed using voice recognition software. While every effort has been made to ensure accuracy system support developer errors may have been included. Yours sincerely, Dr Mario Al MD, HO [facility] - Urology Providers of Expert, Compassionate Care for the Genitourinary System Coding Level of Care Code Est Pt Level 3 (67854) Diagnoses Osteopenia due to cancer therapy M85.80 Prostate cancer metastatic to bone C61; C79.51
== END 2023-04-15 10:45 | disposition home or self-care (01) ==
PROVIDERS: PCP Registered Nurse; Visit Provider Urology
DX: M85.80 Other specified disorders of bone density and structure, unspecified site (principal); C61 Malignant neoplasm of prostate; C79.51 Secondary malignant neoplasm of bone
CPT/HCPCS: 99213

== ENCOUNTER → 2023-04-15 09:36 | Outpatient (BNVA) | payer MEDICARE, MEDICAID, SELFPAY | PROVIDERS: PCP Registered Nurse; Visit Provider Urology | DX: M85.80 Other specified disorders of bone density and structure, unspecified site (principal); C61 Malignant neoplasm of prostate; C79.51 Secondary malignant neoplasm of bone | CPT/HCPCS: 96372; 96402; 99212; J0897; J9217 ==

== ENCOUNTER 2023-06-16 11:20 | Outpatient (REF) | payer MEDICARE, MEDICAID, SELFPAY ==
[2023-06-16 12:44] LABS: Anion Gap 12 (12-20); Blood Urea Nitrogen 13 mg/dL (9-16); Calcium 10.2 mg/dL (8.4-10.2); Carbon Dioxide 26 mmol/L (22-29); Chloride 104 mmol/L (96-108); Estimated Glomerular Filt Rate > 60; Glucose Random 85 mg/dL (60-115); Potassium 4.3 mmol/L (3.3-5.1); Sodium 138 mmol/L (135-145)
== END 2023-06-16 11:21 | disposition home or self-care (01) ==
LOC: HO.HHCL 11:20
PROVIDERS: Visit Provider Registered Nurse
DX: M54.50 Low back pain, unspecified (principal); G89.29 Other chronic pain
CPT/HCPCS: 36415; 80048

== ENCOUNTER 2023-07-02 13:31 | Outpatient (REF) | payer MEDICARE, MEDICAID, SELFPAY ==
--- NOTE | ~2023-07-02 | MR_ITS ---
EXAMINATION: MR BRAIN WITHOUT AND WITH CONTRAST CLINICAL INFORMATION: Concern for intracranial metastatic disease. COMPARISON: No relevant prior imaging. TECHNIQUE: Multiplanar MR imaging of the brain was performed without and with contrast. A total of 8.5 mL Gadavist was utilized for this examination. FINDINGS: Postcontrast images reveal no abnormal intracranial mass or enhancement. Specifically there is no evidence of intracranial metastatic disease. There is no intracranial mass effect or midline shift. No abnormal extra axial collection. Lateral and third ventricles are normal. No hydrocephalus. Midline structures including the cervicomedullary junction are normal. No acute bone marrow signal changes. There are scattered nonspecific foci of T2 FLAIR signal hyperintensity within the periventricular white matter and martinez that most likely represent a chronic manifestation of small vessel ischemia. No acute territorial infarct. No pathological magnetic susceptibility artifact. Intracranial vascular flow voids are grossly maintained. There is no mastoid middle ear effusion. Mild to moderate paranasal sinus disease. Globes and orbits are grossly symmetric. MR/MR head/brain wo/w con IMPRESSION: No evidence of intracranial metastatic disease. There are scattered chronic small vessel ischemic changes within the periventricular white matter and martinez. No evidence of acute territorial infarct or hemorrhage.
[2023-07-02] MEDS: gadobutroL 10 ML VIAL IVPUSH (14:20)
== END 2023-07-02 13:32 | disposition home or self-care (01) ==
LOC: HO.MRI 13:31
PROVIDERS: PCP Registered Nurse; Visit Provider Registered Nurse
DX: R51.9 Headache, unspecified (principal)
CPT/HCPCS: 70553; A9585

== ENCOUNTER 2023-07-09 13:35 | Outpatient (REF) | payer MEDICARE, MEDICAID, SELFPAY ==
[2023-07-09 14:40] LABS: Blood Urea Nitrogen 12 mg/dL (9-16); Estimated Glomerular Filt Rate > 60
[2023-07-09 15:04] LABS: Prostate Specific Antigen 4.96 ng/mL (<0.05-4.0)
[2023-07-14 09:18] LABS: Testosterone, Total 4 ng/dL (250-1100)
== END 2023-07-09 13:36 | disposition home or self-care (01) ==
LOC: HO.LAB 13:35
PROVIDERS: PCP Registered Nurse; Visit Provider Urology
DX: C61 Malignant neoplasm of prostate (principal); C79.51 Secondary malignant neoplasm of bone; Z12.5 Encounter for screening for malignant neoplasm of prostate
CPT/HCPCS: 36415; 82565; 84153; 84403; 84520

== ENCOUNTER 2024-06-06 08:56 | Outpatient (REF) | payer MEDICARE, MEDICAID, SELFPAY ==
[2024-06-06 11:08] LABS: Prostate Specific Antigen 4.09 ng/mL (<0.05-4.0)
[2024-06-13 12:54] LABS: Testosterone, Total <1 ng/dL (250-1100)
== END 2024-06-06 08:57 | disposition home or self-care (01) ==
LOC: HO.10HDL 08:56
PROVIDERS: Visit Provider Urology
DX: C61 Malignant neoplasm of prostate (principal); C79.51 Secondary malignant neoplasm of bone; R97.21 Rising PSA following treatment for malignant neoplasm of prostate; Z12.5 Encounter for screening for malignant neoplasm of prostate
CPT/HCPCS: 36415; 84153; 84402; 84403

== ENCOUNTER 2024-06-09 13:55 | Outpatient (AMB) | payer MEDICARE, MEDICAID, SELFPAY ==
--- NOTE | 2024-06-09 13:58 | MHC.OFFVIS ---
Intake Visit Reasons: PSA Follow Up(set)Elevated Intake Note: Patient is present for PSA ELEVATED F/U Urology Medication:TAMSULOSIN,ABIRATERONE,PREDNISON Antibiotic Allergy:METFORMIN Blood Thinner:NONE Solder Sprayer Required: No Allergies metformin Allergy (Intermediate, Verified 06/09/24 13:58) Stomach Upset HPI Comments Details: Christiano is a pleasant male. He is a patient of Dr. Coronado. He is seen for the following urologic conditions - prostate cancer [place]se translation performed in office by qualified medical service technician 06/10 - PSA 4.1 Has not been seen in over a year Last imaging 2021 Had previously been cycling abiraterone whilst on GnRH and Prolia Has been receiving chemotherapy treatment for his colon cancer at [facility]. Last GnRH was administered the in March Imaging obtained from [facility] which shows PET-CT that has progressive extensive osseous metastases Is reporting back pain and joint pain Current PSA is 4.1 which is relatively well-controlled Referral to [facility] for BARON 177 04/08 PSA 2.5 - still staying in control Had colostomy for colorectal cancer. Continue cycling abiraterone GnRH and Prolia today Labs in 3 months with PET-CT - will likely consider monthly denosumab 01/06 Lab work shows PSA controlled - 1.9 T <1 Continue cycling abiraterone per [facility] 3 month follow-up lab work with PSMA scan Recent diagnosis of colon cancer 07/09 bone scan shows no progression since December Has been cycling abiraterone 1 month on and 1 month off Prostate cancer Jennifer 9 initial therapy radiation in [place] with injections 2013 - Last Lupron 10/06 Castrate resistant non metastatic prostate cancer Diagnosed 2015 Initial pathology Jennifer 7 and 9 Initial therapy external beam radiation with 2 years of hormones Subsequent slight rise in PSA and was started on Casodex PSA - 08/02 .4, 05/04 .4, 04/05 2.0, 08/04 2.3, 10/04 2.9 T 4, 04/06 7.0, 06/07 T 3, 10/05 1.8 T 5, 01/05 4.1 T5, 04/07 2.7 T2, 06/08 1.9, 10/06 3.2 T 3 Imaging - 05/05 bone scan negative - 06/07 DEXA scan osteopenia - 01/05 Bone Scan New L5 changes - 01/05 PT-CT [facility] multiple small spinal metastases and question of kim involvement - 08/06 bone scan no further progressive changes. Remains with spinal Mets and question of kim involvement. Current therapy GnRH with anti androgen initiated 01/04 Lower urinary tract symptoms Urgency and frequency Good response to tamsulosin PFSH Medical History Hemorrhoids Hematochezia Anemia Diabetes mellitus Prostate cancer Surgical History History of appendectomy Family History Mother Diabetes Father Cancer Social History Household Members: Spouse Housing: Apartment Alcohol intake: former Patient Tobacco Use Status: Never used Tobacco service: No Current occupational status: retired Review of Systems Const Denies chills and Denies fever(s) Card Reports no additional complaints and Denies syncope Resp Denies cough GI Denies abdominal pain and Denies heartburn Reports as per HPI and Denies change in libido Neuro Denies syncope Psych Denies change in libido Endo Denies change in libido Physical Exam Const General: cooperative, healthy appearing, comfortable and no acute distress Orientation/consciousness: patient oriented x3 HEENT Face and sinus: Yes normal facial exam Mouth: moist mucous membranes Neck Neck: Yes normal visual inspection, Yes full ROM and Yes trachea midline Chest Chest palpation & inspection: normal inspection of the chest Resp Effort & Inspection: normal respiratory effort, able to speak in complete sentences and no respiratory distress GI Inspection: Yes normal to inspection Back/Spine/Pelvis Cervical Spine: normal cervical lordosis Thoracic/Lumbar Spine: thoracic and lumbar spine normal to inspection Skin General skin exam: no rashes or lesions noted Neuro General: patient oriented x3, gait normal, tone normal and moves all extremities Extrem General: Yes normal to inspection and Yes capillary refill normal Assessment & Plan Assessment & Plan (1) Prostate cancer: Code(s): C61 - Malignant neoplasm of prostate Category: Medical (2) Prostate cancer metastatic to bone: Code(s): C61 - Malignant neoplasm of prostate; C79.51 - Secondary malignant neoplasm of bone Category: Medical Plan Obtain imaging from [employer] Orders: Referrals Radiation Oncology Referral C61 - Malignant neoplasm of prostate, C79.51 - Secondary malignant neoplasm of bone Patient Instructions: Imaging studies, laboratory and physical exam results were discussed and reviewed in detail. No major barriers to patient understanding were identified. An opportunity to ask questions regarding the treatment plan was provided. All questions were answered. The patient expressed understanding and agreement with the above treatment plan. The patient is aware they should contact our office by phone for worsening of their current condition or the appearance of new urologic symptoms. Compliance is encouraged with any medications and followup testing that is ordered. It is a privilege to participate in the urologic care of your patient. If you have any questions or concerns regarding treatment for the above conditions, or other urologic issues, please do not hesitate to contact me. The office telephone contact is [phone]. This note is constructed using voice recognition software. While every effort has been made to ensure accuracy mental health tech errors may have been included. Yours sincerely, Dr Mario Al MD, [facility] - Urology Providers of Expert, Compassionate Care for the Genitourinary System Coding Level of Care Code Est Pt Level 4 (44934) Diagnoses Prostate cancer C61 Prostate cancer metastatic to bone C61; C79.51
--- OUTSIDE RECORDS SUMMARY | 2024-06-09 15:39 | XMS_ITS | Encounter Summary ---
Author Organization [employer] Address [address] [place] [address] Care Team Providers Care Data Capture Specialist Name Role Phone [facility] Primary Care Provider [phone] Encounter Details Date Type Department Care Team (Late st Contact Info) Description 04/29/2022 Orders Only [facility] [address] [place], [place] [phone] Cortney Mcgovern LPN Social History Tobacco Use Types Packs/Day Years Used Date Smoking Tobacco: Never Assessed Sex and Gender Information Value Date Recorded Sex Assigned at Male 03/16/2022 10:31 AM EDT Legal Sex Male 10:31 AM EDT Gender Identity Choose not to disclose 10:31 AM EDT Sexual Orientation Choose not to disclose 2021 10:31 AM EDT documented as of this encounter Plan of Treatment Upcoming Encounters Date Type Department Care Team (Late st Contact Info) Description 07/14/2024 11:15 AM EST Office Visit [facility] [address] [place], [place] [phone] [facility] [address] [place], [place] [phone] documented as of this encounter Procedures Procedure Name Priority Date/Time Associated Diagnosis Comments CBC WITH AUTO DIFFERENTIAL Routine 07/24/2022 9:21 AM EST COMPREHENSIVE METABOLIC PANEL Routine 07/24/2022 9:21 AM EST documented in this encounter Results * (ABNORMAL) Comprehensive Metabolic Panel (07/24/2022 9:21 AM EST) Sodium 139 135 - 145 mmol/L [facility] Potassium 4.4 3.3 - 5.1 mmol/L [facility] Chloride 103 96 - 108 mmol/L [facility] Carbon Dioxide 28 22 - 29 mmol/L [facility] Anion Gap 12 12 - 20 [facility] Urea Nitrogen (BUN) 18(H) 9 - 16 mg/dL [facility] Creatinine, Serum 0.89 0.5 - 1.4 mg/dL [facility] Creatinine Clr Calc Pharmacy 77.8 [facility] Comment:eGFR (calculated fro m the MDRD study equation) and eCrCl(calculated from the Cockcroft-Gault equation) are based ondifferent parameters and may not yield comparable results.If eCrCl result is absurd, please check patient'sheight/weight. Estimated Glomerular Filt Rate >60 [facility] Comment:NOTE: For -Am erican individuals, multiply the result by 1.210.Chronic Kidney Disease: Estimated GFR < 60 mL/min/1.53t8Azzrls Kidney Disease: Estimated GFR < 15 mL/min/1.73m2 Glucose 113 60 - 115 mg/dL [facility] Calcium 9.4 8.4 - 10.2 mg/dL [facility] Bilirubin, Total 0.5 0.0 - 1.0 mg/dL [facility] Aspartate Amino Transferase 19 5 - 37 U/L [facility] Alanine Aminotransferase 16 0 - 40 U/L [facility] Total Protein 6.7 6.5 - 8.0 g/dL [facility] Albumin Level 3.8 3.5 - 5.0 g/dL [facility] Alkaline Phosphatase 60 39 - 117 U/L [facility] 07/24/2022 9:21 AM EST 07/24/2022 9:23 AM EST us [facility] External Provider LAB BLO OD ORDERABLES Final Result [facility] [address] [place] [address] [phone] * (ABNORMAL) CBC auto differential (07/24/2022 9:21 AM EST) White Blood Count 7.4 4.8 - 10.8 X10*3/uL [facility] Red Blood Count 5.25 4.60 - 5.80 X10*6/uL [facility] Hemoglobin 13.2(L) 14.0 - 18.0 g/dl [facility] Hematocrit 40.1(L) 42.0 - 52.0 % [facility] Mean Corpuscular Volume 76.4(L) 80.0 - 98.0 fL [facility] Mean Corpuscular Hemoglobin 25.1(L) 27.0 - 33.0 pg [facility] Mean Corpuscular HGB Conc 32.9 31.0 - 36.0 g/dl [facility] Red Cell Distribution Width 13.9 11.0 - 16.0 % [facility] Platelet Count 274 160 - 400 X10*3/uL [facility] Mean Platelet Volume 10.1 9.4 - 12.4 fL [facility] Neutrophils Percent Auto 55.3 45 - 73 % [facility] Imm Gran Pct Auto 0.1 0.0 - 0.4 % [facility] Lymphocytes Percent Auto 31.8 20 - 40 % [facility] Monocytes Percent Auto 8.2 2 - 11 % [facility] Eosinophils Percent Auto 3.4 0 - 4 % [facility] Basophils Percent Auto 1.2 0 - 2 % [facility] NRBC Pct Auto 0.0 0.0 - 0.2 /100WBC [facility] Neutrophils Absolute Auto 4.1 2.0 - 8.3 x10*3/uL [facility] Imm Gran Abs Auto 0.01 0.00 - 0.03 X10*3/uL [facility] Lymphocytes Absolute Auto 2.4 1.2 - 4.9 X10*3/uL [facility] Monocytes Absolute Auto 0.6 0.1 - 1.2 X10*3/uL [facility] Eosinophils Absolute Auto 0.3 0.0 - 0.4 X10*3/uL [facility] Basophils Absolute Auto 0.1 0.0 - 0.2 X10*3/uL [facility] NRBC Abs Auto 0.000 0.0 - 0.012 X10*3/uL [facility] 07/24/2022 9:21 AM EST 07/24/2022 9:23 AM EST us [facility] External Provider LAB BLO OD ORDERABLES Final Result [facility] [address] [place] [address] [phone] documented in this encounter Visit Diagnoses Not on filedocumented in this encounter Care Teams Data Capture Specialist Relationship Specialty Start Date End Date Zena Sarmiento FNP [address] [place] [phone] PCP - General Family Medicine 07/16/22 documented as of this encounter
--- OUTSIDE RECORDS SUMMARY | 2024-06-09 15:39 | XMS_ITS | Encounter Summary ---
Author Organization [employer] Address [address] [place] [address] Care Team Providers Care Lithograph Designer Name Role Phone Zena Sarmiento [facility] Primary Care Provider [phone] Encounter Details Date Type Department Care Team (Late st Contact Info) Description 01/01/2023 Orders Only [facility] [address] [place], [place] [phone] Itzel Cortez LPN Social History Tobacco Use Types Packs/Day Years Used Date Smoking Tobacco: Never Smokeless Tobacco: Never Alcohol Use Standard Drinks/Week Comments Never 0 (1 standard drink = 0.6 oz pur e alcohol) Sex and Gender Information Value Date Recorded [...] Description 07/14/2024 11:15 AM EST Office Visit [facility] [address] [place] [address] Santa AnaZena FNP [address] [place], [place] [phone] documented as of this encounter Visit Diagnoses Not on filedocumented in this encounter Additional Health Concerns Assessment Noted Time PHQ-9 Depression Total Score: 8 08/05/19 23 10:56 AM EDT documented as of this encounter Care Teams Lithograph Designer Relationship Specialty Start Date End Date Zena Sarmiento FNP [address] [place] [address] PCP - General Family Medicine 07/16/22 documented as of this encounter
--- OUTSIDE RECORDS SUMMARY | 2024-06-09 15:39 | XMS_ITS | Encounter Summary ---
Author Organization [employer] Address [address] [place] [address] Care Team Providers Care Hip Hop Performers Name Role Phone [facility] Primary Care Provider [phone] Reason for Visit * Reason Onset Date Comments Humanitarian Letter 06/07/2024 The patient requested a letter for immigration. He is very ill, and would like for his daughter to be allowed to come from [place] to the [place] to be by his side. I called to ask what his daughter's name is, so that it could be noted in the letter. He stated that her name is Keyona Padilla. Encounter Details Date Type Department Care Team (Late st Contact Info) Description 06/07/2024 Telephone [facility] [address] [place] [address] [place], [facility] [address] [place] [address] Humanitarian Letter (The patient requested a letter for immigration. He is very ill, and would like for his daughter to be allowed to come from the [place] to be by his side. I called to ask what his daughter's name is, so that it could be noted in the letter. He stated that her name is Keyona Padilla.) Social History Tobacco Use Types Packs/Day Years Used Date Smoking Tobacco: Never Smokeless Tobacco: Never Alcohol Use Standard Drinks/Week Comments Never 0 (1 standard drink = 0.6 oz pur e alcohol) Alcohol Answer Date Recorded Frequency of Alcohol Consumption Not on file 06/16/2023 Average Number of Drinks Not on file 024 Frequency of Binge Drinking Not on file 05/19 Score 0 06/16/2023 Depression Answer Date Recorded Patient Health Questionnaire-9 Score 0 03/01/2024 Patient Health Questionnaire-9 Score 0 03/01/2024 Last PHQ-9: Questionnaire Data Not on file 1 Housing Stability Answer Date Recorded What is your housing situation today? I have polly bennett 03/07/[address] you li ve. Do you have problems with any of the following? None of the above 03/07/2023 Food Insecurity Answer Date Recorded Within the past 12 months, y ou worried that your food would run out before you got money to buy more: Never True 03/07/2023 Within the past 12 months,th e food you bought just didn't last and you didn't have enough money to get more: Never True Transportation Answer Date Recorded In the past 12 months, has l ack of transportation kept you from medical appts, meetings, work or from getting things needed for daily living? No 03/07/2023 Utilities Answer Date Recorded In the past 12 months, has t he electric, gas, oil or water company threatened to shut off services in your home? No 03/07/2023 Depression Answer Date Recorded Patient Health Questionnaire-2 Score 0 03/01/2024 Sex and Gender Information Value Date Recorded Sex Assigned at Male 03/16/2022 10:31 AM EDT Legal Sex Male 10:31 AM EDT Gender Identity Choose not to disclose 10:31 AM EDT Sexual Orientation Choose not to disclose 2021 10:31 AM EDT documented as of this encounter Miscellaneous Notes * Telephone Encounter - Nhi Underwood [place] - 06/07/2024 2:30 PM EST The patient requested a letter for immigration. He is very ill, and would like for his daughter to be allowed to come from the [place] to [place] to be by his side. I called to ask what his daughter's name is, so that it could be noted in the letter. He stated that her name is Keyona Sue. documented in this encounter Plan of Treatment Upcoming Encounters Date Type Department Care Team (Late st Contact Info) Description 07/14/2024 11:15 AM EST Office Visit [facility] [address] [place] [address] Zena Sarmiento FNP [address] [place] [address] documented as of this encounter Visit Diagnoses Not on filedocumented in this encounter Additional Health Concerns Assessment Noted Time PHQ-9 Depression Total Score: 0 03/01/20 24 9:09 AM EDT documented as of this encounter Care Teams Hip Hop Performers Relationship Specialty Start Date End Date Zena Sarmiento FNP [address] [place] [address] PCP - General Family Medicine 07/16/22 documented as of this encounter
--- OUTSIDE RECORDS SUMMARY | 2024-06-09 15:39 | XMS_ITS | Encounter Summary ---
Author Organization [employer] Address [address] [place] [address] Care Team Providers Care Tile Sorter Name Role Phone Zena Sarmiento [employer] Primary Care Provider [phone] Encounter Details Date Type Department Care Team (Latest Contact Info) Description 05/12/2019 Abstract [facility] CONVERSIONS Dental, Provider, DDS Social History Tobacco Use Types Packs/Day Years [...] Description 07/14/2024 11:15 AM EST Office Visit [facility] MEDICINE [address] [place] [address] Zena Sarmiento FNP [address] [place] [address] documented as of this encounter Visit Diagnoses Not on filedocumented in this encounter Care Teams Tile Sorter Relationship Specialty Start Date End Date Zena Sarmiento FNP [address] [place] [address] PCP - General Family Medicine 07/16/22 documented as of this encounter
--- OUTSIDE RECORDS SUMMARY | 2024-06-09 15:40 | XMS_ITS | Encounter Summary ---
Author Organization [employer] Address [address] [place] [address] Care Team Providers Care Evs Manager Name Role Phone [facility] Primary Care Provider [phone] Reason for Visit * Reason Comments Pre-visit Planning (Unable to reach for PVP screening, LVM) Encounter Details Date Type Department Care Team ([facility] st Contact Info) Description 05/24/2024 Patient Outreach [facility] [address] [place], [place] [phone] [facility] [address] [place] [address] Pre-visit Planning ((Unable to reach for PVP screening, LVM)) Social History Tobacco Use Types Packs/Day Years [...] the past 12 months, has t he [employer], gas, oil or water [employer] threatened to shut off services in your [...] AM EDT documented as of this encounter Progress Notes * Tori Mahmood - 05/24/2024 9:34 AM EST CC Tori. Placed outbound call to patient to complete pre-visit planning. No answer at this time. Patient name and were not confirmed. CC left voicemail requesting return call. Direct contact information provided. documented in this encounter Plan of Treatment Upcoming Encounters Date Type Department Care Team (Late st Contact Info) Description 07/14/2024 11:15 AM EST Office Visit [facility] [address] [place] [address] Zena Sarmiento FNP [address] [place] [address] documented as of this encounter Visit Diagnoses Not on filedocumented in this encounter Additional Health Concerns Assessment Noted Time PHQ-9 Depression Total Score: 0 03/01/20 9:09 AM EDT documented as of this encounter Care Teams Evs Manager Relationship Specialty Start Date End Date Zena Sarmiento FNP [address] [place] [address] PCP - General Family Medicine 07/16/22 documented as of this encounter
--- OUTSIDE RECORDS SUMMARY | 2024-06-09 15:40 | XMS_ITS | Encounter Summary ---
Author Organization [employer] Address [address] [place] [address] Care Team Providers Care Paving Inspector Name Role Phone [facility] Primary Care Provider [phone] Reason for Visit * Reason Onset Date Comments VNA services 06/08/2024 Encounter Details Date Type Department Care Team ([facility] st Contact Info) Description 06/08/2024 Telephone [facility] [address] [place], [place] [phone] Martita Valadez RN [address] [place], [place] [phone] VNA services Social History Tobacco Use Types Packs/Day Years [...] encounter Miscellaneous Notes * Telephone Encounter - Martita Valadez RN - 06/09/2024 2:14 PM EST RN was informed [facility] does NOT accept patients insurance, they will be unable to take on patient. TC placed to [facility] [phone] to inquire if they are unable to take on patient. RN was informed they do NOT have the capacity to take on patient for daily visits. RN was also informed patients insurance will not cover local company intermodal truck driver VNA services. TC placed to [facility] [phone] who reports they are NOT servicing [facility] at thistime. TC placed to [facility] [phone] who reports they are NOT servicing the [facility] at this time. TC placed to [facility] [phone] who reports they do NOT service the [facility] and they also do NOT have VNA services at this time. TC placed to [facility] [phone] who does NOT service the [facility]. * Telephone Encounter - Martita Valadez RN - 06/08/2024 11:57 AM EST RN has generated VNA order, printed medlist and facesheet. VNA order signed by PCP and all documents provided to Manuel (S liaison). RN will await for SOC date. ----- Message from Zena Sarmiento sent at 06/07/2024 1:51 PM EST ----- Please refer to VNA for insulin administration and ostomy care. Thank you! documented in this encounter Plan of Treatment Upcoming Encounters Date Type Department Care Team (Late st Contact Info) Description 07/14/2024 11:15 AM EST Office Visit [facility] [address] [place] [address] Zena Sarmiento FNP [address] [place] [address] documented as of this encounter Visit Diagnoses Not on filedocumented in this encounter Additional Health Concerns Assessment Noted Time PHQ-9 Depression Total Score: 0 03/01/20 24 9:09 AM EDT documented as of this encounter Care Teams Paving Inspector Relationship Specialty Start Date End Date Zena Sarmiento FNP [address] [place] [id number] PCP - General Family Medicine 07/16/22 documented as of this encounter
--- OUTSIDE RECORDS SUMMARY | 2024-06-09 15:40 | XMS_ITS | Encounter Summary ---
Author Organization [facility] Address [address] [place] [address] Care Team Providers Care Manager Of Corporate Name Role Phone Guill[facility] Primary Care Provider [phone] Encounter Details Date Type Department Care Team (Latest Contact Info) Description 06/02/2024 Travel Social History Tobacco Use Types Packs/Day Years [...] Description 07/14/2024 11:15 AM EST Office Visit [facility] MED[facility]INE [address] [place] [address] Zena Sarmiento FNP [address] [place] [address] documented as of this encounter Visit Diagnoses Not on filedocumented in this encounter Additional Health Concerns Assessment Noted Time PHQ-9 Depression Total Score: 0 03/01/20 24 9:09 AM EDT documented as of this encounter Care Teams Manager Of Corporate Relationship Specialty Start Date End Date Zena Sarmiento FNP [address] [place] [id number] PCP - General Family Medicine 07/16/22 documented as of this encounter
--- OUTSIDE RECORDS SUMMARY | 2024-06-09 15:40 | XMS_ITS | Encounter Summary ---
Author Organization [facility] [facility] [employer] Address [address] [place] [address] Care Team Providers Care Triple Valve Tester Name Role Phone Guillermina [facility] Primary Care Provider [phone] Encounter Details Date Type Department Care Team ([facility] st Contact Info) Description 04/06/[address] [facility] MEDICINE [address] [place], [place] [phone] Milly Rosado, CydneyD [address] [place] [address] Social History Tobacco Use Types Packs/Day Years [...] encounter Miscellaneous Notes * Telephone Encounter - Milly Rosado PharmD - 04/06/2024 2:52 PM EST Please consider restarting atorvastatin 80 mg once daily. Per previous notes patient is still taking this medication, however their fill history shows they have not refilled this prescription since 2021 and they have no other pharmacies on their profile. Patient is between the ages of 40 and 75 years, with diabetes, and multiple ASCVD risk factors. If any questions, please reach out my extension is [phone] thank you. documented in this encounter Plan of Treatment Upcoming Encounters Date Type Department Care Team (Late st Contact Info) Description 07/14/2024 11:15 AM EST Office Visit [facility] MEDICINE [address] [place] [address] Zena Sarmiento FNP [address] [place] [address] documented as of this encounter Visit Diagnoses Not on filedocumented in this encounter Additional Health Concerns Assessment Noted Time PHQ-9 Depression Total Score: 0 03/01/20 24 9:09 AM EDT documented as of this encounter Care Teams Triple Valve Tester Relationship Specialty Start Date End Date Zena Sarmiento FNP [address] [place] [address] PCP - General Family Medicine 07/16/22 documented as of this encounter
--- OUTSIDE RECORDS SUMMARY | 2024-06-09 15:40 | XMS_ITS | Clinical Summary ---
Author Organization [employer] Address [address] [facility] 7[address] [place] [address] Care Team Providers Care Head Of Drama Name Role Phone [facility] Primary Care Provider [phone] Allergies Active Allergy Reactions Criticality Noted Date Comments Lisinopril Cough 03/04/2018 Losartan Cough 10/21/2018 Oxycodone Shortness of breath High 08/12/2017 Medications acetaminophen (Tylenol 8 Hour) 650 MG ER tablet Take 2 tablets by mouth every 8 (eight) hours. 022 Active bicalutamide (Casodex) 50 MG chemo tablet Take 1 tablet by mouth 1 (one) time each day. Active sodium chloride ([place]) 0.65 % nasal spray 1-2 spray on each nostril every 2-3 hours as needed for nasal congestion 022 Active aspirin 81 MG EC tablet Take 1 tablet by mouth every 48 hours. 019 Active Repatha SureClick 140 MG/ML injection INJECT 1 ML (140 MG) SUBCUTANEOUSLY EVERY 14 DAYS 023 Active abiraterone (Zytiga) 250 MG chemo tablet TAKE 4 TABLETS BY MOUTH EVERY DAY ON AN EMPTY STOMACH, 1 HOUR BEFORE OR 2 HOURS AFTER A MEAL 023 Active senna (Senokot) 8.6 MG tabletIndicatio ns:Constipation , unspecified constipation type TAKE 1 OR 2 TABLETS BY MOUTH UP TO FOUR TIMES DAILY NEEDED FOR CONSTIPATION 180 tablet 1 023 Active docusate sodium (Colace) 100 MG capsuleIndicati ons:Chronic constipation TAKE 1 CAPSULE BY MOUTH TWICE DAILY 180 capsule 1 023 Active tamsulosin (Flomax) 0.4 MG 24 hr capsule Take 0.4 mg by mouth in the morning. Active sodium chloride 7 % nebulizer solution nebulizer solution Inhale 4 mL 2 times daily. Active omeprazole (PriLOSEC) [address] capsule Take 20 mg by mouth in the morning. Active Linzess 290 MCG capsule TAKE 1 CAPSULE BY MOUTH 30 MINUTES BEFORE FIRST MEAL OF THE DAY ON EMPTY (STOMACH) Active leuprolide, 3-month, (Lupron Depot) 11.25 MG injection Inject 22.5 mg into the shoulder, thigh, or buttocks every 6 months. Active albuterol 2.5 MG/0.5ML nebulizer solution Inhale 2.5 mg 2 times daily. Active amLODIPine (Norvasc) 10 MG tabletIndicatio ns:Primary hypertension TAKE 1 TABLET BY MOUTH EVERY DAY 90 tablet 3 Active hydroCHLOROthia zide (HYDRODiuril) 12.5 MG tabletIndicatio ns:Primary hypertension Take 1 tablet (12.5 mg) by mouth in the morning. 30 tablet 2024 Active chlorhexidine (Peridex) 0.12 % solutionIndicat ions:Oral mucositis SWISH, GARGLE, AND SPIT OUT 15 ML BY MOUTH DIRECTED 473 mL 1 Active fluticasone (Flonase) 50 MCG/ACT nasal sprayIndication s:Viral upper respiratory illness Administer 1-2 sprays into each nostril in the morning. Shake gently. Before first use, prime pump. After use, clean tip and replace cap. 16 g 2 024 2024 Active Farxiga 10 MG Take 10 mg by mouth Once per day. Active prochlorperazin e (Compazine) 10 MG tablet Take 10 mg by mouth every 6 (six) hours if needed. Active OneTouch Ultra Test test stripIndication s:Chronic right-sided low back pain without sciatica USE TEST BLOOD SUGAR THREE TIMES DAILY 100 each Active Lancets (OneTouch Delica) lancets 30G 1 each by Other route 3 times daily. USE TEST BLOOD SUGAR THREE TIMES DAILY 100 each 11 024 2024 Active Blood Glucose Monitoring Suppl (ONE TOUCH ULTRA 2) w/Device kit USE TEST BLOOD SUGAR THREE TIMES DAILY 1 kit Active Cyanocobalamin (Vitamin B-12) 1000 MCG sublingual tabletIndicatio ns:Neuropathy DISSOLVE 1 TABLET UNDER THE TONGUE ONCE DAILY 90 tablet 3 Active Lantus SoloStar 100 UNIT/ML penIndications: Type II diabetes mellitus with nephropathy ([facility]) Inject 24 Units under the skin Once per day. 15 mL 3 Active atorvastatin (Lipitor) 80 MG tablet Take 1 tablet (80 mg) by mouth Once per day. 30 tablet 2 Active cyclobenzaprine (Flexeril) 5 MG tabletIndicatio ns:Muscle spasm Take 1 tablet (5 mg) by mouth if needed at bedtime for muscle spasms. 30 tablet 1 025 2025 Active Diclofenac Sodium 1 % gelIndications: Chronic right-sided low back pain without sciatica APPLY 2 GRAMS TOPICALLY (BOTH KNEES) THREE OR FOUR TIMES DAILY NEEDED FOR PAIN 100 g 1 Active polyethylene glycol, PEG, 3350 (Glycolax) 17 GM/SCOOP powderIndicatio ns:Type 2 diabetes mellitus with hyperglycemia, with long-term current use of insulin ([facility]) Take 17 g by mouth Once per day. 1020 g 3 025 2025 Active Diclofenac Sodium 1 % gelIndications: Chronic right-sided low back pain without sciatica APPLY 2 GRAMS TOPICALLY (BOTH KNEES) THREE OR FOUR TIMES DAILY NEEDED FOR PAIN 100 g 1 024 2024 Discontinued(R eorder (will not trigger notification to Pharmacy)) polyethylene glycol, PEG, 3350 (Glycolax) 17 GM/SCOOP powder DISSOLVE 34 GRAMS (2 CAPFUL) WITH 8 OUNCES OF jugo de ciruela o de andrey AND DRINK ONCE DAILY 1020 g 3 024 2024 Discontinued(R eorder (will not trigger notification to Pharmacy)) Active Problems Problem Noted Date Diagnosed Date Colostomy prolapse 06/02/2024 Chronic right-sided low back pain without sciati ca 10/21/2023 Overview (10/21/2023): -Refill Zionn sent to [facility] -Follow up PRN Primary neuroendocrine carcinoma of rectum 02/07 Overview (06/16/2023): ?? Dr. Caballero, [facility] Oncology ?? S/p colon resection 04/2023 ?? Well-differentiated neuroendocrine tumor (grade 2; Metastatic well- differentiated neuroendocrine tumor involving four of seventeen lymph nodes (4). Pathologic Stage Classification (pTNM, AJCC 8th Edition) pT Category: pT4 pN Category: pN1 Assessment & Plan (04/19/2023 6:24 AM EST): ?? Follow as scheduled with oncology Chronic constipation 08/10/2022 Overview (11/27/2022): ?? Colonoscopy 03/2021, [facility], polyp removed, need records ?? Senna ?? Miralax Assessment & Plan (11/27/2022 12:01 PM EDT): ?? START daily colace ?? Continue daily miralax ?? INCREASE senna to b.i.d ?? Increase fluid intake and exercise ?? Follow up with GI as scheduled Assessment & Plan (09/09/2022 9:50 AM EDT): ?? Continue twice daily miralax ?? Start daily colace ?? Start senna (1 tablet) every evening ?? Advised not to strain to avoid vasovagal syncope ?? Contact HC if sx worsen or do not improve with treatment Assessment & Plan (08/10/2022 5:30 PM EDT): ?? Continue twice daily miralax ?? Start daily colace ?? Start senna (1 tablet) every evening ?? Contact HC if sx worsen or do not improve with treatment Healthcare maintenance 08/10/2022 Overview (08/10/2022): C-Scope: 03/2021 [facility] PSA: Hx of prostate cancer, followed by urology PSA 07/2022 1.9 Obstructive sleep apnea 06/06/2018 Overview (08/10/2022): ?? 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 Caballero, [facility] oncology [facility] 9 Leuprolide (Eligard/GnRH agonist) Abiraterone (Zytiga) Denosumab (prolia) - 07/06 bone scan negative - 06/07 DEXA scan osteopenia - 01/05 PT-CT [facility] multiple small spinal metastases and question of kim involvement - 2023 Updated PET/CT scan evidence of disease progression. S/P 6 cycles taxotere Rectal rectal pathology is most consistent with prostate cancer with neuroendocrine features pT4 pN1 cM0) Assessment & Plan (04/19/2023 6:24 AM EST): ?? Follow as scheduled with Dr. Al urology Assessment & Plan (02/07/2023 3:36 PM EDT): ?? Follow up as scheduled with urology Hypertension 03/18/2017 Overview (06/16/2023): ?? Amlodipine 10mg ?? Has not tolerated ACEi or ARB in the past - Aerobic exercise to reduce BP. Initial goal of 30 min walk 3-5x/week. Increase as tolerated. - low-sodium diet (goal: <2g/day) and heart healthy diet such as DASH to reduce BP and prevent ASCVD. - Home BP monitoring 1-2 x day with goal of <140/90. - Seek immediate medical attention for chest pain, palpitations, SOB, syncope, or sudden changes in mental status. - Do not change or discontinue current prescriptions without first consulting health care provider Assessment & Plan (06/16/2023 1:23 PM EST): ?? START hydrochlorothiazide 12.5mg.Reviewed administration, risks, side effects ?? Continue amlodipine 10mg daily ?? RN BP check 2 weeks Assessment & Plan (04/19/2023 6:23 AM EST): START hydrochlorothiazide 12.5mg daily. Reviewed administration, risks, side effects RN BP check 2 weeks with repeat BMP Assessment & Plan (02/07/2023 3:35 PM EDT): ?? Well controlled ?? Continue current reigmen Assessment & Plan (11/27/2022 11:54 AM EDT): ?? Well controlled ?? Continue current regimen Assessment & Plan (08/10/2022 5:27 PM EDT): ?? Well controlled ?? Continue current regimen Type II diabetes mellitus with nephropathy 03/18 Overview (03/01/2024): Benny Lantus Neuroendocrine tumor of rectum potential contraindication for GLP1 therapy BMP: 07/2022 Microalbumin: 07/2022, abnormal. Repeat at follow up Foot Exam: 09/2022 RISK 1, counseled on daily footcare Eye Exam: Followed by [facility] Eye care Lipid panel: 07/2022 ASCVD: LDL < 70 Statin: Yes, plus repatha ASA: Yes ADIA/ARB: No Encouraged regular aerobic exercise for improved glycemic control Encouraged daily foot checks Encouraged lean protein snacks and to avoid foods high in sugar and simple carbohydrates Treatment Goals: A1c goal: <7% FBG goal: <130 2 hour post prandial goal: <180 Assessment & Plan (07/20/2023 3:03 PM EST): Lab Results Component Value Date HGBA1C 6.5 (A) 04/12/2023 Well controlled Continue current regimen Assessment & Plan (06/16/2023 1:24 PM EST): ?? Well controlled ?? Continue current regimen Lab Results Component Value Date HGBA1C 6.5 (A) 04/12/2023 Assessment & Plan (04/19/2023 6:23 AM EST): Lab Results Component Value Date HGBA1C 6.5 (A) 04/12/2023 Well controlled Continue current regimen Assessment & Plan (02/07/2023 3:36 PM EDT): Lab Results Component Value Date HGBA1C 5.9 01/07/2023 ?? Well controlled ?? Repeat microalbumin today Assessment & Plan (11/27/2022 12:00 PM EDT): - Well controlled - Continue current regimen - At follow up plan to repeat urine albumin/creatinine. If persistent mild proteinuria will consider adding SGLT2i for renal protection. Assessment & Plan (08/10/2022 5:26 PM EDT): - Well controlled - A1c today 7.1% - Continue current regimen Resolved Problems Problem Noted Date Diagnosed Date Resolved Date Sacroiliitis, not elsewhere classified 10/17/2023 03/01/2024 History of appendectomy 04/23/202207/16 Encounters Date Type Department Care Team Description 06/08/2024 Telephone [facility] MEDICINE [address] [place] [phone] Martita Valadez RN VNA services 06/07/2024 Telephone [facility] [address] [place] [address] Zena Sarmiento FNP Humanitarian Letter (The patient requested a letter for immigration. He is very ill, and would like for his daughter to be allowed to come from the [place] to the [place] to be by his side. I called to ask what his daughter's name is, so that it could be noted in the letter. 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 (CMS/HCC); Positive depression screening; Class 1 obesity due to excess calories with serious comorbidity and body mass index (BMI) of 32.0 to 32.9 in adult; Dietary counseling; Exercise counseling; Muscle spasm; Chronic right-sided low back pain without sciatica 06/02/2024 Travel 05/24/2024 Patient Outreach [facility] MEDICINE [address] [place] [phone] GuillerminaZena FNP Pre-visit Planning ((Unable to reach for PVP screening, LVM)) 04/07/2024 Refill [facility] [address] [place], [place] [phone] Milly Rosado, PharmD 04/06/[address] [address] Milly Rosado, PharmD from Last 3 Months Immunizations Name Administration Dates Next Due Influenza High-dose Quadriva lent Preservative Free 04/12/2023,02/06/2022,03/10/2021,02/21 Influenza, High Dose Seasona l, Preservative Free 02/25/2024,02/21/2019,03/04/2018,03/12 Moderna Covid-19 Vaccine 12+ 09/06/2020,08/10/19 21 Pfizer Covid-19 Vaccine 12+ 04/12/2023, Pneumococcal Conjugate PCV 13 06/12/2017 Pneumococcal Polysaccharide PPSV23 01/06/2021 Tdap 03/10/2021 Zoster, Recombinant 03/10/2021,01/06/2021 Social History Tobacco Use Types Packs/Day Years Used Date Smoking Tobacco: Never Smokeless Tobacco: Never Tobacco Cessation:Counseling Given: Not Answered Alcohol Use Standard Drinks/Week Comments Never 0 [...] not to disclose 2021 10:31 AM EDT Last Filed Vital Signs Vital Sign Reading Time Taken Comments Blood Pressure 132/70 06/02/2024 9:24 AM EST Pulse 78 06/02/2024 9:24 AM EST Temperature 36.9 ??C (98.4 ??F) 06/02/2024 9:24 AM ES T Respiratory Rate 20 06/02/2024 9:24 AM EST Oxygen Saturation 98% 03/01/2024 9:08 AM EDT Inhaled Oxygen Concentration - - Weight 94.3 kg (208 lb) 06/02/2024 9:24 AM EST Height 170.2 cm (5' 7 ) 06/02/2024 9:24 AM EST Body Mass Index 32.58 06/02/2024 9:24 AM EST Plan of Treatment Upcoming Encounters Date Type Department Care Team (Late st Contact Info) Description 07/14/2024 11:15 AM EST Office Visit [facility] MEDICINE [address] [place] [address] Zena Sarmiento, CATTLE MANAGER [address] [place] [address] Health Maintenance Due Date Last Done Comments RSV Patients and Patients Aged 60 years or older (1 - Risk 60-74 years 1-dose series) 2010 Lipid Panel 08/05/2023 08/04/2022 COVID-19 Vaccine ( season) 2024 04/12/2023, 03/31/2022, 10/14/2021, Additional history exists Diabetes: Foot Exam 04/12/2024 04/12/2023, 04/12/2023, 04/12/2023 Alcohol/Substance Use Screening 06/16/2024 06/16/2023 SDOH Screening 06/16/2024 06/16/2023 Diabetes: Hemoglobin A1C 08/31/2024 025, 03/01/2024, 10/18/2023, Additional history exists Depression Screening 03/01/2025 03/01/2024, 03/01/20 24 Eye Exam 03/19/2025 03/19/2023, 1107/2022, 03/19/2023, Additional history exists Tobacco Screening 06/07/2025 06/07/2024 DTaP/Tdap/Td Vaccines (2 - Td or Tdap) 03/10/2031 03/10/2021 Pneumococcal Vaccine: 65+ Years Completed 01/06/2021, 06/12/2017 Zoster Vaccines Completed 03/10/2021, 01/06/2021 Influenza Vaccine Completed 02/25/2024, , 02/06/2022, Additional history exists HIB Vaccines Aged Out No longer eligi ble based on patient's age to complete this topic HPV Vaccines Aged Out No longer eligi ble based on patient's age to complete this topic Hepatitis A Vaccines Aged Out No long er eligible based on patient's age to complete this topic Hepatitis B Vaccines Aged Out No long er eligible based on patient's age to complete this topic Hepatitis C Screening Discontinued IPV Vaccines Aged Out No longer eligi ble based on patient's age to complete this topic Meningococcal Vaccine Aged Out No lissa logan eligible based on patient's age to complete this topic RSV under 20 months Aged Out No longe r eligible based on patient's age to complete this topic Rotavirus Vaccines Aged Out No longer eligible based on patient's age to complete this topic Procedures Procedure Name Priority Date/Time Associated Diagnosis Comments POCT GLYCATED HEMOGLOBIN, TOTAL Routine 06/02/2024 9:29 AM EST Type 2 diabetes mellitus with hyperglycemia, with long-term current use of insulin ([facility]) POCT GLUCOSE Routine 06/02/2024 9:27 AM EST Type 2 diabetes mellitus with hyperglycemia, with long-term current use of insulin ([facility]) LIPID PANEL, STANDARD Routine 08/04/2022 11:57 AM EDT Type II diabetes mellitus with nephropathy ([facility]) from Last 3 Months or Most Recently Relevant to Health Maintenance Results * (ABNORMAL) POCT HGB A1C (06/02/2024 9:29 AM EST) Hemoglobin A1C 7.7(A) 4.0 - 6.0 % QC [employer] Lot # [id number] Lot# Expiration Date ,026 Blood 06/02/2024 9:29 AM EST [facility] POINT OF CARE TEST ENTER/EDIT ORDERABLES Final Result * POCT Glucose (06/02/2024 9:27 AM EST) Glucose Blood, POC 147 60 - 200 mg/dL [employer] Lot # [id number] Lot# Expiration Date ,025 Blood Capillary blood specimen / Unknown 06/02/2024 9:27 AM EST [facility] POINT OF CARE TEST ENTER/EDIT ORDERABLES Final Result * (ABNORMAL) Lipid Panel, Standard (08/04/2022 11:57 AM EDT) Cholesterol, Total 143 <200 mg/dL [facility] HDL Cholesterol 47 > OR = 40 mg/dL [facility] Triglycerides 152(H) <150 mg/dL [facility] LDL Cholesterol 73 mg/dL (calc) [facility] Comment: Reference range: <100 Desirable range <100 mg/dL for primary prevention; ?? <70 mg/dL for patients with CHD or diabetic patients with > or = 2 CHD risk factors. LDL-C is now calculated using the Marija calculation, which is a validated novel method providing better accuracy than the Friedewald equation in the estimation of LDL-C. Angelito SS et al. ANIKA. 2013;310(19): 4511-1350 (http://education.Tangled/faq/VCV107) Chol/HDLC Ratio 3.0 <5.0 (calc) [facility] Non-HDL Cholesterol 96 <130 mg/dL (calc) [facility] Comment: For patients with diabetes plus 1 major ASCVD risk factor, treating to a non-HDL-C goal of <100 mg/dL (LDL-C of <70 mg/dL) is considered a therapeutic option. Blood Venous blood specimen / Unknown 08/04/2022 11:57 AM EDT 08/04/2022 11:58 AM EDT Narrative [facility] - 08/05/2022 9:10 PM EDT FASTING:NO FASTING: NO [facility] LAB BLOOD ORDERABLES Final Re sult [facility] [address], [place] [address] [facility] [employer] [address] [place] [address] from Last 3 Months or Most Recently Relevant to Health Maintenance [facility] [employer] [facility]IC[facility] REPLACEMENT Care Teams Head Of Drama Relationship Specialty Start Date End Date Zena Sarmiento FNP [address] [place] [id number] PCP - General Family Medicine 07/16/22
--- OUTSIDE RECORDS SUMMARY | 2024-06-09 15:40 | XMS_ITS | Encounter Summary ---
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 (CMS/HCC) Zena Sarmiento FNP [address] [place] [address] Phone: tel: fax: Referral ID Status Reason Start Date Expiration Date V isits Requested Visits Authorized [id number] Closed Specialty Services Required 06/07/2024 06/07/2025 1 1 Encounter Details Date Type Department Care Team (Late st Contact Info) Description 06/02/2024 9:15 AM EST Office Visit [facility] [address] [place], [place] [phone] Zena Sarmiento FNP [address] [place] [address] Type 2 diabetes mellitus with hyperglycemia, with long-term current use of insulin (CMS/HCC) (Primary Dx); 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 (CMS/HCC); Positive depression screening; Class 1 obesity due to excess calories with serious comorbidity and body mass index (BMI) of 32.0 to 32.9 in adult; Dietary counseling; Exercise counseling; Muscle spasm; Chronic right-sided low back pain without sciatica Social History Tobacco Use Types Packs/Day Years [...] AM EDT documented as of this encounter Last Filed Vital Signs Vital Sign Reading Time Taken Comments Blood Pressure 132/70 06/02/2024 9:24 AM EST Pulse 78 06/02/2024 9:24 AM EST Temperature 36.9 ??C (98.4 ??F) 06/02/2024 9:24 AM ES T Respiratory Rate 20 06/02/2024 9:24 AM EST Oxygen Saturation - - Inhaled Oxygen Concentration - - Weight 94.3 kg (208 lb) 06/02/2024 9:24 AM EST Height 170.2 cm (5' 7 ) 06/02/2024 9:24 AM EST Body Mass Index 32.58 06/02/2024 9:24 AM EST documented in this encounter Progress Notes * [facility], STOG[facility] - 06/02/2024 9:15 AM EST SUBJECTIVE: Christiano Padilla is a 73 y.o. year old adult with T2DM, HTN, prostate cancer with mets to spineand rectum, HLD, and BHASKAR who presents for DM and HTN follow up . Acute Concerns: Requesting humantiarian letter for daughter to support visa application to travel to visit him [facility] referral for ostomy care and insulin administrat (doing 24 units lantus) Interim Updates: 05/05/24-had oncology follow-up. Per visit note restarted abiraterone with daily prednisone 5mg. Patient reports difficulty tolerating and is not taking prednisone consistently. Has also noticed decline in mood with worsening depression symptoms since restart.Updated PET/CT scan with no new areas of disease however some more prominent areas consistent with disease progression 04/04/24 Status post hernia revision for ostomy site. 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 (CMS/HCC) Obstructive sleep apnea Erectile dysfunction following radiation therapy Atherosclerosis of [place] coronary artery of [place] heart with angina pectoris (CMS/HCC) Chronic constipation Healthcare maintenance Primary neuroendocrine carcinoma of rectum (CMS/HCC) Chronic right-sided low back pain without sciatica Past Surgical History: Procedure Laterality Date CT GUIDED BIOPSY PROSTATE 07/29/2023 CT GUIDED BIOPSY PROSTATE 07/29/2023 CT GUIDED BIOPSY PROSTATE 10/21/2023 CT GUIDED BIOPSY PROSTATE 10/21/2023 CT GUIDED BIOPSY PROSTATE 04/20/2024 CT GUIDED BIOPSY PROSTATE 04/20/2024 No family history on file. Review of Systems Constitutional: Negative for activity change, diaphoresis, fatigue, fever and unexpected weight change. Eyes: Negative for visual disturbance. Respiratory: Negative for apnea, cough, chest tightness and shortness of breath. Cardiovascular: Negative for chest pain, palpitations and leg swelling. Gastrointestinal: Negative for abdominal pain and nausea. Neurological: Negative for dizziness, syncope, light-headedness and headaches. Psychiatric/Behavioral: Positive for dysphoric mood. Negative for self-injury and suicidal ideas. OBJECTIVE: Vitals: 06/02/24 0924 BP: 132/70 Pulse: 78 Resp: 20 Temp: 98.4 ??F (36.9 ??C) Physical Exam Constitutional: General: Christiano is not in acute distress. Appearance: Normal appearance. HENT: Head: Normocephalic and atraumatic. Right Ear: External ear normal. Left Ear: External ear normal. Nose: Nose normal. Eyes: Conjunctiva/sclera: Conjunctivae normal. Cardiovascular: Rate and Rhythm: Normal rate and regular rhythm. Heart sounds: Normal heart sounds. Pulmonary: Effort: Pulmonary effort is normal. Breath sounds: Normal breath sounds. Skin: General: Skin is warm and dry. Neurological: General: No focal deficit present. Mental Status: Christiano is alert and oriented to person, place, and time. Psychiatric: Mood and Affect: Mood normal. Behavior: Behavior normal. ASSESSMENT/PLAN [facility]NA referral placed for insulin administration and ostomy care 1. Type 2 diabetes mellitus with hyperglycemia, with long-term current use of insulin ([facility]) (Primary) Lab Results Component Value Date HGBA1C 7.7 (A) 06/02/2024 HGBA1C 8.4 (A) 03/01/2024 HGBA1C 8.8 (A) 10/18/2023 Lab Results Component Value Date MICROALBUR 1,463.0 01/07/2023 CREATININE 0.94 07/09/2023 Blood sugars improving seeing endocrinology at [facility] Continue Lantus 24 units Continue Farxiga 10 mg Foot Exam: RISK 1, chronic neuropathy Eye Exam: Followed by [facility] Eye care, UTD Statin: Yes, plus repatha ASA: Yes ADIA/ARB: No (difficulty tolerating) - POCT Glucose - POCT HGB A1C - polyethylene glycol, PEG, 3350 (Glycolax) 17 GM/SCOOP powder; Take 17 g by mouth Once per day. Dispense: 1020 g; Refill: 3 2. 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 Patient was advised of importance of taking both medications as prescribed to reduce risk of adverse side effects. Patient verbalizes understanding. Patient advised to contact Dr. Caballero's office given side effect concerns. I also called Dr. Caballero's office myself and left a message with team nurse advising of compliance concerns and side effect of worsening depression. Pt has short term follow up with oncology next week Accepts referral to palliative care I spoke with our forms team reguarding humanitarian letter to support daughter coming to visit. Metastatic prostate cancer (margot 5) with mets to spine and colon. Status post colon resection 04/2023. Rectal pathology most consistent with prostate cancer with neuroendocrine features pT4 pN1 cM0) 05/14/24-updated PET/CT scan with no new bony lesions although increase in lesions prominence c/w disease progression S/P 6 cycles taxotere - Referral to Palliative Care; Future - Referral to Palliative Care 3. Positive depression screening Patient with notable decline in mood compared with prior visits. Tearful in office. Declines behavioral health referral or pharmacologic treatment. Denies SI/self-harm. Will continue to monitor. Patient will reach out if interested in additional therapeutic support. May benefit from SSRI in the future but does not want to pursue medication at this time Contact HC if sx worsen or experiencing thoughts of SI or self harm. Pt has [facility] crisis contact information 4. Class 1 obesity due to excess calories with serious comorbidity and body mass index (BMI) of 32.0 to 32.9 in adult - Encouraged regular aerobic exercise within initial goal of 30 minute walk 3x/week - Encouraged balanced diet with a variety of fruits, vegetables, and lean meats. 5. Dietary counseling 6. Exercise counseling Follow Up: 6 weeks re mood Current Outpatient Medications on File Prior to Visit Medication Sig Dispense Refill abiraterone (Zytiga) 250 MG chemo tablet TAKE 4 TABLETS BY MOUTH EVERY DAY ON AN EMPTY STOMACH, 1 HOUR BEFORE OR 2 HOURS AFTER A MEAL acetaminophen (Tylenol 8 Hour) 650 MG ER tablet Take 2 tablets by mouth every 8 (eight) hours. albuterol 2.5 MG/0.5ML nebulizer solution Inhale 2.5 mg 2 times daily. amLODIPine (Norvasc) 10 MG tablet TAKE 1 TABLET BY MOUTH EVERY DAY 90 tablet 3 aspirin 81 MG EC tablet Take 1 tablet by mouth every 48 hours. atorvastatin (Lipitor) 80 MG tablet Take 1 tablet (80 mg) by mouth Once per day. 30 tablet 2 bicalutamide (Casodex) 50 MG chemo tablet Take 1 tablet by mouth 1 (one) time each day. Blood Glucose Monitoring Suppl (ONE TOUCH ULTRA 2) w/Device kit USE TEST BLOOD SUGAR THREE TIMES DAILY 1 kit 0 chlorhexidine (Peridex) 0.12 % solution SWISH, GARGLE, AND SPIT OUT 15 ML BY MOUTH DIRECTED 473 mL 1 Cyanocobalamin (Vitamin B-12) 1000 MCG sublingual tablet DISSOLVE 1 TABLET UNDER THE TONGUE ONCE DAILY 90 tablet 3 Diclofenac Sodium 1 % gel APPLY 2 GRAMS TOPICALLY (BOTH KNEES) THREE OR FOUR TIMES DAILY NEEDED FOR PAIN 100 g 1 docusate sodium (Colace) 100 MG capsule TAKE 1 CAPSULE BY MOUTH TWICE DAILY 180 capsule 1 Farxiga 10 MG Take 10 mg by mouth Once per day. fluticasone (Flonase) 50 MCG/ACT nasal spray Administer 1-2 sprays into each nostril in the morning. Shake gently. Before first use, prime pump. After use, clean tip and replace cap. 16 g 2 hydroCHLOROthiazide (HYDRODiuril) 12.5 MG tablet Take 1 tablet (12.5 mg) by mouth in the morning. 30 tablet 11 Lancets (VeriShowTouch Delica) lancets 30G 1 each by Other route 3 times daily. USE TEST BLOOD SUGAR THREE TIMES DAILY 100 each 11 Lantus SoloStar 100 UNIT/ML pen Inject 24 Units under the skin Once per day. 15 mL 3 leuprolide, 3-month, (Lupron Depot) 11.25 MG injection Inject 22.5 mg into the shoulder, thigh, or buttocks every 6 months. Linzess 290 MCG capsule TAKE 1 CAPSULE BY MOUTH 30 MINUTES BEFORE FIRST MEAL OF THE DAY ON EMPTY (STOMACH) omeprazole (PriLOSEC) [address] capsule Take 20 mg by mouth in the morning. VeriShowTouch Ultra Test test strip USE TEST BLOOD SUGAR THREE TIMES DAILY 100 each 11 polyethylene glycol, PEG, 3350 (Glycolax) 17 GM/SCOOP powder DISSOLVE 34 GRAMS (2 CAPFUL) WITH 8 OUNCES OF jugo de ciruela o de andrey AND DRINK ONCE DAILY 1020 g 3 prochlorperazine (Compazine) 10 MG tablet Take 10 mg by mouth every 6 (six) hours if needed. Repatha SureClick 140 MG/ML injection INJECT 1 ML (140 MG) SUBCUTANEOUSLY EVERY 14 DAYS senna (Senokot) 8.6 MG tablet TAKE 1 OR 2 TABLETS BY MOUTH UP TO FOUR TIMES DAILY NEEDED FOR CONSTIPATION 180 tablet 1 sodium chloride (Liberal) 0.65 % nasal spray 1-2 spray on each nostril every 2-3 hours as needed for nasal congestion sodium chloride 7 % nebulizer solution nebulizer solution Inhale 4 mL 2 times daily. tamsulosin (Flomax) 0.4 MG 24 hr capsule Take 0.4 mg by mouth in the morning. No current facility-administered medications on file prior to visit. 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 ([facility]/HCC) Expected: 06/07/2024 (Approximate), Expires: 06/07/2025 documented as of this encounter Procedures Procedure Name Priority Date/Time Associated Diagnosis Comments POCT GLYCATED HEMOGLOBIN, TOTAL Routine 06/02/2024 9:29 AM EST Type 2 diabetes mellitus with hyperglycemia, with long-term current use of insulin ([facility]) POCT GLUCOSE Routine 06/02/2024 9:27 AM EST Type 2 diabetes mellitus with hyperglycemia, with long-term current use of insulin ([facility]) documented in this encounter Results * (ABNORMAL) POCT HGB A1C (06/02/2024 9:29 AM EST) Hemoglobin A1C 7.7(A) 4.0 - 6.0 % QC Media Lot # [id number] Lot# Expiration Date Blood 06/02/2024 9:29 AM EST [facility] POINT OF CARE TEST ENTER/EDIT ORDERABLES Final Result * POCT Glucose (06/02/2024 9:27 AM EST) Glucose Blood, POC 147 60 - 200 mg/dL QC Media Lot # [id number] Lot# Expiration Date ,025 Blood Capillary blood specimen / Unknown 06/02/2024 9:27 AM EST [facility] POINT OF CARE TEST ENTER/EDIT ORDERABLES Final Result documented in this encounter Visit Diagnoses Diagnosis Type 2 diabetes mellitus with hyperglycemia, with long-term current use of insulin ([facility])- Primary 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 ([facility]) Positive depression screening Class 1 obesity due to excess calories with serious comorbidity and body mass index (BMI) of 32.0 to 32.9 in adult Dietary counseling Dietary surveillance and counseling Exercise counseling Muscle spasm Spasm of muscle Chronic right-sided low back pain without sciatica documented in this encounter Additional Health Concerns Assessment Noted Time PHQ-9 Depression Total Score: 0 03/01/20 24 9:09 AM EDT documented as of this encounter Care Teams Consumer Recruiter Relationship Specialty Start Date End Date [facility] [address] [place] [id number] PCP - General Family Medicine 07/16/22 documented as of this encounter
== END 2024-06-09 14:26 | disposition home or self-care (01) ==
PROVIDERS: PCP Registered Nurse; Visit Provider Urology
DX: C61 Malignant neoplasm of prostate (principal); C79.51 Secondary malignant neoplasm of bone
CPT/HCPCS: 99214

== ENCOUNTER → 2024-06-09 13:55 | Outpatient (BNVA) | payer MEDICARE, MEDICAID, SELFPAY | PROVIDERS: PCP Registered Nurse; Visit Provider Urology | DX: C61 Malignant neoplasm of prostate (principal); C79.51 Secondary malignant neoplasm of bone | CPT/HCPCS: 99212 ==

== ENCOUNTER 2024-08-07 09:47 | Outpatient (REF) | payer MEDICARE, MEDICAID, SELFPAY ==
[2024-08-07 11:27] LABS: Prostate Specific Antigen 4.16 ng/mL (<0.05-4.0)
[2024-08-14 14:12] LABS: Testosterone, Total <1 ng/dL (250-1100)
== END 2024-08-07 09:48 | disposition home or self-care (01) ==
LOC: HO.10HDL 09:47
PROVIDERS: Visit Provider Urology
DX: C61 Malignant neoplasm of prostate (principal); C79.51 Secondary malignant neoplasm of bone; R97.21 Rising PSA following treatment for malignant neoplasm of prostate; Z12.5 Encounter for screening for malignant neoplasm of prostate
CPT/HCPCS: 36415; 84153; 84403

== ENCOUNTER 2024-08-22 09:49 | Outpatient (AMB) | payer MEDICARE, MEDICAID, SELFPAY ==
--- NOTE | 2024-08-22 10:10 | A.OFFVIS_ITS ---
Intake Visit Reasons: 3M PSA/Testo(testo pending)Radiation/Onc follow up Intake Note: Patient is present for 3M/PSA/TESTO/RADIATION/ONC F/U Urology Medication:PREDNISONE,TAMSULOSIN,ABIRATERONE Antibiotic Allergy:NONE Blood Thinner:NONE Seed Mill Superintendent Required: No Allergies metformin Allergy (Intermediate, Verified 10/16/24 10:45) Stomach Upset HPI Comments Details: Christiano is a pleasant male. He is a patient of Dr. Coronado. 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 There was discussion between [facility] and [facility] radiation oncology that he would still be a candidate for [id number] the future if the amiodarone and GnRH ceases to work 06/10 - PSA 4.1 Has not been seen in over a year Last imaging 2021 - Had previously been cycling abiraterone whilst on GnRH and Prolia Has been receiving chemotherapy treatment for his colon cancer at [facility]. Last GnRH was administered the in March Imaging obtained from [facility] which shows PET-CT that has p rogressive extensive osseous metastases Is reporting back pain and joint pain Current PSA is 4.1 which is relatively well-controlled Referral to [facility] for BARON 177 04/08 PSA 2.5 - still staying in control Had colostomy for colorectal cancer - neuroendocrine adenocarcinoma of the rectum Continue cycling abiraterone GnRH and Prolia today Labs in 3 months with PET-CT - will likely consider monthly denosumab 01/06 Lab work shows PSA controlled - 1.9 T <1 Continue cycling abiraterone per [facility] 3 month follow-up lab work with PSMA scan Recent diagnosis of colon cancer 07/09 bone scan shows no progression since December Has been cycling abiraterone 1 month on and 1 month off Prostate cancer Jennifer 9 initial therapy radiation in [place] with injections 2013 - Last Lupron 10/06 Castrate resistant non metastatic prostate cancer Diagnosed 2015 Initial pathology Jennifer 7 and 9 Initial therapy external beam radiation with 2 years of hormones Subsequent slight rise in PSA and was started on Casodex PSA - 08/02 .4, 05/04 .4, 04/05 2.0, 08/04 2.3, 10/04 2.9 T 4, 04/06 7.0, 06/07 T 3, 10/05 1.8 T 5, 01/05 4.1 T5, 04/07 2.7 T2, 06/08 1.9, 10/06 3.2 T 3 Imaging - 05/05 bone scan negative - 06/07 DEXA scan osteopenia - 01/05 Bone Scan New L5 changes - 01/05 PT-CT PSMA [facility] multiple small spinal metastases and question of kim involvement - 08/06 bone scan no further progressive changes. Remains with spinal Mets and question of kim involvement. Current therapy GnRH with anti androgen initiated 01/04 Lower urinary tract symptoms Urgency and frequency Good response to tamsulosin PFSH Medical History Hemorrhoids Hematochezia Anemia Diabetes mellitus Prostate cancer Surgical History History of appendectomy Family History Mother Diabetes Father Cancer Social History Household Members: Spouse Housing: Apartment Alcohol intake: former Patient Tobacco Use Status: Never used Tobacco Smoked in Last 30 Days: No Use of substances other than those prescribed or required for medical reasons: No Advance Directives: No Advance Directives Information Provided: Yes service: No Current occupational status: retired Review of Systems Const Denies chills and Denies fever(s) Card Reports no additional complaints and Denies syncope Resp Denies cough GI Denies abdominal pain and Denies heartburn Reports as per HPI and Denies change in libido Neuro Denies syncope Psych Denies change in libido Endo Denies change in libido Physical Exam Const General: cooperative, healthy appearing, comfortable and no acute distress Orientation/consciousness: patient oriented x3 HEENT Face and sinus: Yes normal facial exam Mouth: moist mucous membranes Neck Neck: Yes normal visual inspection, Yes full ROM and Yes trachea midline Chest Chest palpation & inspection: normal inspection of the chest Resp Effort & Inspection: normal respiratory effort, able to speak in complete sentences and no respiratory distress GI Inspection: Yes normal to inspection Back/Spine/Pelvis Cervical Spine: normal cervical lordosis Thoracic/Lumbar Spine: thoracic and lumbar spine normal to inspection Skin General skin exam: no rashes or lesions noted Neuro General: patient oriented x3, gait normal, tone normal and moves all extremities Extrem General: Yes normal to inspection and Yes capillary refill normal Assessment & Plan Assessment & Plan (1) Radiation cystitis: Code(s): 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 While every effort has been made to ensure accuracy financial services representative errors may have been included. Imaging studies, laboratory and physical exam results were discussed and reviewed in detail. No major barriers to patient understanding were identified. An opportunity to ask questions regarding the treatment plan was provided. All questions were answered. The patient expressed understanding and agreement with the above treatment plan. The patient is aware they should contact our office by phone for worsening of their current condition or the appearance of new urologic symptoms. Compliance is encouraged with any medications and followup testing that is ordered. It is a privilege to participate in the urologic care of your patient. If you have any questions or concerns regarding treatment for the above conditions, or other urologic issues, please do not hesitate to contact me. The office telephone contact is [phone]. Sincerely, Dr Mario Al MD, [facility] - Urology Compassionate Specialist Care for the Genitourinary System Coding Level of Care Code Est Pt Level 3 (53791) Complex EM visit Add On G2211 Diagnoses Radiation cystitis N30.40 Prostate cancer C61
--- OUTSIDE RECORDS SUMMARY | 2024-08-22 11:19 | XMS_ITS | Encounter Summary ---
Author Organization [employer] Address [address] [facility] 7[address] [place] [address] Care Team Providers Care Dietetic Tech Name Role Phone Zena Sarmiento Primary Care Provider [phone] Encounter Details Date Type Department Care Team (Late st Contact Info) Description 01/01/2023 Orders Only [facility] MED & PEDS [address] [place], [place] [id number] Itzel Cortez LPN Social History Tobacco Use [...] Care Team (Late st Contact Info) Description 09/18/2024 1:00 PM EDT Office Visit [facility] MEDICINE [address] [place] [address] Zena Sarmiento FNP [address] [place], [place] [phone] documented as of this encounter Visit Diagnoses Not on filedocumented in this encounter Additional Health Concerns Assessment Noted Time PHQ-9 Depression Total Score: 8 08/05/19 23 10:56 AM EDT documented as of this encounter Care Teams Dietetic Tech Relationship Specialty Start Date End Date Zena Sarmiento FNP [address] [place] [address] PCP - General Family Medicine 07/16/22 Bakari ANDERSON 06/17/24 documented as of this encounter
--- OUTSIDE RECORDS SUMMARY | 2024-08-22 11:19 | XMS_ITS | Encounter Summary ---
Author Organization [employer] Address [address] [facility] 7t [place] [address] Care Team Providers Care Gusset Edger Name Role Phone Zena Sarmiento [facility] Primary Care Provider [phone] Encounter Details Date Type Department Care Team (Latest Contact Info) Description 05/12/2019 Abstract [facility] CONVERSIONS Dental, Provider, DDS Social History Tobacco [...] Description 09/18/2024 1:00 PM EDT Office Visit [facility] MEDICINE [address] [place] [address] Zena Sarmiento FNP [address] [place] [address] documented as of this encounter Visit Diagnoses Not on filedocumented in this encounter Care Teams Gusset Edger Relationship Specialty Start Date End Date Zena Sarmiento FNP [address] [place] [address] PCP - General Family Medicine 07/16/22 Bakari Nuñez [facility] 06/17/24 documented as of this encounter
--- OUTSIDE RECORDS SUMMARY | 2024-08-22 11:19 | XMS_ITS | Clinical Summary ---
Author Organization [employer] Address 75 [facility] 7t [place] [address] Care Team Providers Care Auditing Control Clerk Name Role Phone Guillermina [facility] Primary Care Provider [phone] Allergies Active Allergy Reactions Criticality Noted Date Comments Lisinopril Cough 03/04/2018 Losartan Cough 10/21/2018 Oxycodone Shortness of breath High 08/12/2017 Medications acetaminophen (Tylenol 8 Hour) 650 MG ER tablet Take 2 tablets by mouth every 8 (eight) hours. 01/23/20 22 Active bicalutamide (Casodex) 50 MG chemo tablet Take 1 tablet by mouth 1 (one) time each day. Active sodium chloride ([place]aca) 0.65 % nasal spray 1-2 spray on each nostril every 2-3 hours as needed for nasal congestion 03/09/20 22 Active aspirin 81 MG EC tablet Take 1 tablet by mouth every 48 hours. 06/27/19 19 Active Repatha SureClick 140 MG/ML injection INJECT 1 ML (140 MG) SUBCUTANEOUSLY EVERY 14 DAYS 06/15/19 23 Active abiraterone (Zytiga) 250 MG chemo tablet TAKE 4 TABLETS BY MOUTH EVERY DAY ON AN EMPTY STOMACH, 1 HOUR BEFORE OR 2 HOURS AFTER A MEAL 09/02/19 23 Active senna (Senokot) 8.6 MG tabletIndication s:Constipation, unspecified constipation type TAKE 1 OR 2 TABLETS BY MOUTH UP TO FOUR TIMES DAILY NEEDED FOR CONSTIPATION 180 tablet 1 01/06/20 23 Active docusate sodium (Colace) 100 MG capsuleIndicatio ns:Chronic constipation TAKE 1 CAPSULE BY MOUTH TWICE DAILY 180 capsule 1 03/23/20 23 Active tamsulosin (Flomax) 0.4 MG 24 hr capsule Take 0.4 mg by mouth in the morning. 02/16/20 Active sodium chloride 7 % nebulizer solution nebulizer solution Inhale 4 mL 2 times daily. 11/25/19 Active omeprazole (PriLOSEC) [address] capsule Take 20 mg by mouth in the morning. 11/20/19 Active Linzess 290 MCG capsule TAKE 1 CAPSULE BY MOUTH 30 MINUTES BEFORE FIRST MEAL OF THE DAY ON EMPTY (STOMACH) 02/16/20 Active leuprolide, 3-month, (Lupron Depot) 11.25 MG injection Inject 22.5 mg into the shoulder, thigh, or buttocks every 6 months. Active albuterol 2.5 MG/0.5ML nebulizer solution Inhale 2.5 mg 2 times daily. 11/25/19 Active hydroCHLOROthiaz saroj (HYDRODiuril) 12.5 MG tabletIndication s:Primary hypertension Take 1 tablet (12.5 mg) by mouth in the morning. 30 tablet 11 06/16/19 24 Active chlorhexidine (Peridex) 0.12 % solutionIndicati ons:Oral mucositis SWISH, GARGLE, AND SPIT OUT 15 ML BY MOUTH DIRECTED 473 mL 1 06/16/19 24 Active fluticasone (Flonase) 50 MCG/ACT nasal sprayIndications :Viral upper respiratory illness Administer 1-2 sprays into each nostril in the morning. Shake gently. Before first use, prime pump. After use, clean tip and replace cap. 16 g 2 07/09/19 24 Active Farxiga 10 MG Take 10 mg by mouth Once per day. 08/10/19 24 Active prochlorperazine (Compazine) 10 MG tablet Take 10 mg by mouth every 6 (six) hours if needed. 07/22/19 24 Active OneTouch Ultra Test test stripIndications :Chronic right-sided low back pain without sciatica USE TEST BLOOD SUGAR THREE TIMES DAILY 100 each 11/12/19 24 Active Lancets (OneTouch Delica) lancets 30G 1 each by Other route 3 times daily. USE TEST BLOOD SUGAR THREE TIMES DAILY 100 each 11/12/19 24 025 Active Blood Glucose Monitoring Suppl (ONE TOUCH ULTRA 2) w/Device kit USE TEST BLOOD SUGAR THREE TIMES DAILY 1 kit 11/12/19 24 Active Cyanocobalamin (Vitamin B-12) 1000 MCG sublingual tabletIndication s:Neuropathy DISSOLVE 1 TABLET UNDER THE TONGUE ONCE DAILY 90 tablet 3 01/21/20 24 Active cyclobenzaprine (Flexeril) 5 MG tabletIndication s:Muscle spasm Take 1 tablet (5 mg) by mouth if needed at bedtime for muscle spasms. 30 tablet 1 06/02/19 25 026 Active Diclofenac Sodium 1 % gelIndications:C hronic right-sided low back pain without sciatica APPLY 2 GRAMS TOPICALLY (BOTH KNEES) THREE OR FOUR TIMES DAILY NEEDED FOR PAIN 100 g 1 06/02/19 25 Active polyethylene glycol, PEG, 3350 (Glycolax) 17 GM/SCOOP powderIndication s:Type 2 diabetes mellitus with hyperglycemia, with long-term current use of insulin (CMS/HCC) Take 17 g by mouth Once per day. 1020 g 3 06/02/19 25 026 Active atorvastatin (Lipitor) 80 MG tablet TAKE 1 TABLET BY MOUTH EVERY DAY 30 tablet 2 07/05/19 25 Active amLODIPine (Norvasc) 10 MG tabletIndication s:Primary hypertension TAKE 1 TABLET BY MOUTH EVERY DAY 90 tablet 3 07/05/19 25 Active Continuous Glucose Broadband Engineer (FreeStyle Candy 3 Melrose) deviceIndication s: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) 1 each Once per day. 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 Apply 1 every 15 days as directed for CGM 2 each 11 07/17/19 25 Active Lantus SoloStar 100 UNIT/ML penIndications:T ype II diabetes mellitus with nephropathy (CMS/HCC) Inject 26 Units under the skin Once per day. 15 mL 3 07/17/19 25 Active Active Problems Problem Noted Date Diagnosed Date Colostomy prolapse 06/02/2024 Chronic right-sided low back pain without sciati ca 10/21/2023 Overview (10/21/2023): -Refill Voltaren sent to [facility] PRN -Follow up PRN Primary neuroendocrine carcinoma of rectum 02/07 Overview (06/16/2023): ?? Dr. Caballero, [facility] Oncology ?? S/p colon resection 04/2023 ?? Well-differentiated neuroendocrine tumor (grade 2; Metastatic well- differentiated neuroendocrine tumor involving four of seventeen lymph nodes (4/17). Pathologic Stage Classification (pTNM, AJCC 8th Edition) pT Category: pT4 pN Category: pN1 Assessment & Plan (04/19/2023 6:24 AM EST): ?? Follow as scheduled with oncology Chronic constipation 08/10/2022 Overview (11/27/2022): ?? Colonoscopy 03/2021, [facility], polyp removed, need records ?? Senna ?? [...] Healthcare maintenance 08/10/2022 Overview (08/10/2022): C-Scope: 03/2021 [facility] PSA: Hx of prostate cancer, followed by urology PSA 07/2022 1.9 Obstructive sleep apnea 06/06/2018 Overview (08/10/2022): ?? 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 Caballero, [facility] oncology Jennifer 9 Leuprolide (Eligard/GnRH agonist) Abiraterone (Zytiga) Denosumab (prolia) - 07/06 bone scan negative - 06/07 DEXA scan osteopenia - 01/05 PT-CT [facility] multiple small spinal metastases and question of [...] diabetes mellitus with nephropathy 03/18 Overview (03/01/2024): Farhelen Lantus Neuroendocrine tumor of rectum potential contraindication for GLP1 therapy BMP: 07/2022 Microalbumin: 07/2022, abnormal. Repeat at follow up Foot Exam: 09/2022 RISK 1, counseled on daily footcare Eye Exam: Followed by [facility] Lipid panel: 07/2022 ASCVD: LDL [...] elsewhere classified 10/17/2023 03/01/2024 History of appendectomy 04/23/2022 03/11/2022 Encounters Date Type Department Care Team Description 07/17/2024 Telephone [facility] [address] [place] [address] Zena Sarmiento FNP CGM PA for reader and sensor 07/14/2024 11:15 AM EST Office Visit [facility] [address] [place] [phone] Zena Sarmiento FNP Type II diabetes mellitus with nephropathy ([facility]) 07/14/2024 Travel 07/02/2024 Refill [facility] [address] [place] [address] Zena Sarmiento FNP Primary hypertension 07/01/2024 Refill [facility] [address] [place] [address] Zena Sarmiento FNP 06/08/2024 Telephone [facility] [address] [place] [address] Martita Valadez, RN [facility] services 06/07/2024 Telephone [facility] [address] [place] [address] Zena Sarmiento FNP Humanitarian Letter (The patient [...] Padilla.) 06/02/2024 9:15 AM EST Office Visit [facility] [address] [place] [address] Zena Sarmiento FNP Type 2 diabetes mellitus [...] without sciatica 06/02/2024 Travel 05/24/2024 Patient Outreach [facility] [address] [place] [address] Zena Sarmiento FNP Pre-visit Planning ((Unable to reach for PVP screening, LVM)) from Last 3 Months Immunizations Name Administration [...] Sign Reading Time Taken Comments Blood Pressure 127/71 07/14/2024 11:31 AM EST Pulse 72 07/14/2024 11:31 AM EST Temperature 37.1 ??C (98.7 ??F) 07/14/2024 11:[address] Respiratory Rate 18 07/14/2024 11:31 AM EST Oxygen Saturation 98% 03/01/2024 9:08 AM EDT Inhaled Oxygen Concentration - - Weight 93.7 kg (206 lb 9.6 oz) 07/14/2024 11:31 AM EST Height 170.2 cm (5' 7 ) 07/14/2024 11:31 AM EST Body Mass Index 32.36 07/14/2024 11:31 AM EST Plan of Treatment Upcoming Encounters Date Type Department Care Team (Late st Contact Info) Description 09/18/2024 1:00 PM EDT Office Visit [facility] [address] [place] [address] Guillermina, Zena, [place] [address] [place] [address] Health Maintenance Due Date Last Done Comments Alcohol/Substance Use Screening 1962 RSV Patients and Patients Aged 60 years or older (1 - Risk 60-74 years 1-dose series) 2010 Lipid Panel 08/05/2023 08/04/2022 COVID-19 Vaccine ( season) 2024 04/12/2023, 03/31/2022, 10/14/2021, Additional history exists Diabetes: Foot Exam 04/12/2024 04/12/2023, 04/12/2023, 04/12/2023 SDOH Screening 06/16/2024 06/16/2023 Diabetes: Hemoglobin A1C 10/11/2024 025, 06/02/2024, 03/01/2024, Additional history exists Depression Screening 03/01/2025 03/01/2024, 03/01/20 24 Eye Exam 03/19/2025 03/19/2023, 11/07/2022, 03/19/2023, Additional history exists Tobacco Screening 07/16/2025 07/16/2024 DTaP/Tdap/Td Vaccines (2 - Td or Tdap) 03/10/2031 03/10/2021 Pneumococcal Vaccine: 50+ Years Completed 01/06/2021, 06/12/2017 Zoster Vaccines Completed [...] Diagnosis Comments POCT GLYCATED HEMOGLOBIN, TOTAL Routine 07/14/2024 12:01 PM EST 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) POCT GLUCOSE Routine 07/14/2024 11:33 AM EST 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 Hemoglobin A1C 8.2(A) 4.0 - 6.0 % Blood 07/14/2024 12:0 1 PM EST [facility] [place] POINT OF CARE TEST ENTER/EDIT ORDERABLES Final Result * POCT glucose manually resulted (07/14/2024 11:33 AM EST) Only the most recent of2 resultswithin the time period is included. Glucose Blood, POC 154 60 - 200 mg/dL Comment:R BS QC Media Lot # [id number] Lot# Expiration Date [id number] Blood Capillary blood specimen / Unknown 07/14/2024 11:33 AM EST [facility] POINT OF CARE TEST ENTER/EDIT ORDERABLES Final Result * (ABNORMAL) Lipid Panel, Standard (08/04/2022 11:57 AM EDT) [facility] Cholesterol, Total 143 <200 mg/dL [facility] [place] [facility] HDL Cholesterol 47 > OR = 40 mg/dL [facility] [place] [facility] Triglycerides 152(H) <150 mg/dL [facility] [place] [facility] LDL Cholesterol 73 mg/dL (calc) [facility] [place] [facility] Comment: Reference range: <100 Desirable range <100 mg/dL for primary prevention; ?? <70 mg/dL for patients with CHD or diabetic patients with > or = 2 CHD risk factors. LDL-C is now calculated using the Angelito-Abdi calculation, which is a validated novel method providing better accuracy than the Friedewald equation in the estimation of LDL-C. Angelito SS et al. ANIKA. 2013;310(19): 5592-4202 (http://education.[employer]/faq/UCS437) Chol/HDLC Ratio 3.0 <5.0 (calc) [facility] [place] [facility] Non-HDL Cholesterol 96 <130 mg/dL (calc) [facility] [place] [facility] Comment: For patients with diabetes plus 1 major ASCVD risk factor, treating to a non-HDL-C goal of <100 mg/dL (LDL-C of <70 mg/dL) is considered a therapeutic option. Blood Venous blood specimen / Unknown 08/04/2022 11:57 AM EDT 08/04/2022 11:58 AM EDT Narrative [facility] - 08/05/2022 9:10 PM EDT FASTING:NO FASTING: NO us Zena Hardy [place] LAB BLOOD ORDERABLES Final Re sult [facility] [address] [facility], [place] [address] [facility] [address] [place] [address] from Last 3 Months or Most Recently Relevant to Health Maintenance Insurance [facility] STANDARD [employer] MEDICARE REPLACEMENT Care Teams Auditing Control Clerk Relationship Specialty Start Date End Date [facility] Zena, [facility] [address] [place] [address] PCP - General Family Medicine 07/16/22 Bakari ANDERSON 06/17/24
--- OUTSIDE RECORDS SUMMARY | 2024-08-22 11:19 | XMS_ITS | Encounter Summary ---
Author Organization [employer] Address 75 [facility] 7t [place] [address] Care Team Providers Care Sausage Inspector Name Role Phone [place] [facility] Primary Care Provider [phone] Encounter Details Date Type Department Care Team (Late st Contact Info) Description 04/29/2022 Orders Only [facility] [address] [place], [place] [phone] Cortney Mcgovern LPN Social History Tobacco Use [...] Description 09/18/2024 1:00 PM EDT Office Visit [facility] [address] [place], [place] [phone] [place] [facility] [address] [place], [place] [phone] documented as of this encounter Procedures Procedure Name Priority Date/Time Associated Diagnosis Comments CBC WITH AUTO DIFFERENTIAL Routine 07/24/2022 9:21 AM EST COMPREHENSIVE METABOLIC PANEL Routine 07/24/2022 9:21 AM EST documented in this encounter Results * (ABNORMAL) Comprehensive Metabolic Panel (07/24/2022 9:21 AM EST) Sodium 139 135 - 145 mmol/L [facility] Potassium 4.4 3.3 - 5.1 mmol/L [facility] Chloride 103 96 - 108 mmol/L [facility] Carbon Dioxide 28 22 - 29 mmol/L [facility] Anion Gap 12 12 - 20 [facility] Urea Nitrogen (BUN) 18(H) 9 - 16 mg/dL [facility] Creatinine, Serum 0.89 0.5 - 1.4 mg/dL [facility] Creatinine Clr Calc Pharmacy 77.8 [facility] Comment:eGFR (calculated fro m the MDRD study equation) and eCrCl(calculated from the Cockcroft-Gault equation) are based ondifferent parameters and may not yield comparable results.If eCrCl result is absurd, please check patient'sheight/weight. Estimated Glomerular Filt Rate >60 [facility] Comment:NOTE: For -Am erican individuals, multiply the result by 1.210.Chronic Kidney Disease: Estimated GFR < 60 mL/min/1.57d4Cmineb Kidney Disease: Estimated GFR < 15 mL/min/1.73m2 Glucose 113 60 - 115 mg/dL [facility] Calcium 9.4 8.4 - 10.2 mg/dL [facility] Bilirubin, Total 0.5 0.0 - 1.0 mg/dL [facility] Aspartate Amino Transferase 19 5 - 37 U/L [facility] Alanine Aminotransferase 16 0 - 40 U/L [facility] Total Protein 6.7 6.5 - 8.0 g/dL [facility] Albumin Level 3.8 3.5 - 5.0 g/dL [facility] Alkaline Phosphatase 60 39 - 117 U/L [facility] 07/24/2022 9:21 AM EST 07/24/2022 9:23 AM EST us [facility] External Provider LAB BLO OD ORDERABLES Final Result [facility] [address] [place] [address] [phone] * (ABNORMAL) CBC auto differential (07/24/2022 9:21 AM EST) White Blood Count 7.4 4.8 - 10.8 X10*3/uL [facility] Red Blood Count 5.25 4.60 - 5.80 X10*6/uL [facility] Hemoglobin 13.2(L) 14.0 - 18.0 g/dl [facility] Hematocrit 40.1(L) 42.0 - 52.0 % [facility] Mean Corpuscular Volume 76.4(L) 80.0 - 98.0 fL [facility] Mean Corpuscular Hemoglobin 25.1(L) 27.0 - 33.0 pg [facility] Mean Corpuscular HGB Conc 32.9 31.0 - 36.0 g/dl [facility] Red Cell Distribution Width 13.9 11.0 - 16.0 % [facility] Platelet Count 274 160 - 400 X10*3/uL [facility] Mean Platelet Volume 10.1 9.4 - 12.4 fL [facility] Neutrophils Percent Auto 55.3 45 - 73 % [facility] Imm Gran Pct Auto 0.1 0.0 - 0.4 % [facility] Lymphocytes Percent Auto 31.8 20 - 40 % [facility] Monocytes Percent Auto 8.2 2 - 11 % [facility] Eosinophils Percent Auto 3.4 0 - 4 % [facility] Basophils Percent Auto 1.2 0 - 2 % [facility] NRBC Pct Auto 0.0 0.0 - 0.2 /100WBC [facility] Neutrophils Absolute Auto 4.1 2.0 - 8.3 x10*3/uL [facility] Imm Gran Abs Auto 0.01 0.00 - 0.03 X10*3/uL [facility] Lymphocytes Absolute Auto 2.4 1.2 - 4.9 X10*3/uL [facility] Monocytes Absolute Auto 0.6 0.1 - 1.2 X10*3/uL [facility] Eosinophils Absolute Auto 0.3 0.0 - 0.4 X10*3/uL [facility] Basophils Absolute Auto 0.1 0.0 - 0.2 X10*3/uL [facility] NRBC Abs Auto 0.000 0.0 - 0.012 X10*3/uL [facility] 07/24/2022 9:21 AM EST 07/24/2022 9:23 AM EST us [facility] External Provider LAB BLO OD ORDERABLES Final Result [facility] [address] [place] [address] [phone] documented in this encounter Visit Diagnoses Not on filedocumented in this encounter Care Teams Sausage Inspector Relationship Specialty Start Date End Date Zena Sarmiento FNP [address] [place] [phone] PCP - General Family Medicine 07/16/22 Bakari ANDERSON 06/17/24 documented as of this encounter
--- OUTSIDE RECORDS SUMMARY | 2024-08-22 11:19 | XMS_ITS | Encounter Summary ---
Author Organization [employer] Address 75 [facility] 7t [place] [address] Care Team Providers Care Physics Faculty Member Name Role Phone [place] [facility] Primary Care Provider [phone] Encounter Details Date Type Department Care Team ([facility] st Contact Info) Description 04/06/2024 Telephone [facility] [address] [place], [place] [phone] Milly Rosado, CydneyD [address] [place] [address] Social History Tobacco Use Types Packs/Day Years [...] questions, please reach out my extension is [phone] thank you. documented in this encounter Plan of Treatment Upcoming Encounters Date Type Department Care Team (Late st Contact Info) Description 09/18/2024 1:00 PM EDT Office Visit [facility] [address] [place] [address] Zena Sarmiento FNP [address] [place] [address] documented as of this encounter Visit Diagnoses Not on filedocumented in this encounter Additional Health Concerns Assessment Noted Time PHQ-9 Depression Total Score: 0 03/01/20 24 9:09 AM EDT documented as of this encounter Care Teams Physics Faculty Member Relationship Specialty Start Date End Date Zena Sarmiento FNP [address] [place] [address] PCP - General Family Medicine 07/16/22 Bakari ANDERSON 06/17/24 documented as of this encounter
== END 2024-08-22 11:53 | disposition home or self-care (01) ==
PROVIDERS: PCP Registered Nurse; Visit Provider Urology
DX: N30.40 Irradiation cystitis without hematuria (principal); C61 Malignant neoplasm of prostate
CPT/HCPCS: 99213; G2211

== ENCOUNTER → 2024-08-22 09:49 | Outpatient (BNVA) | payer MEDICARE, MEDICAID, SELFPAY | PROVIDERS: PCP Registered Nurse; Visit Provider Urology | DX: C61 Malignant neoplasm of prostate (principal); N30.40 Irradiation cystitis without hematuria | CPT/HCPCS: 99212 ==

== ENCOUNTER 2024-09-20 08:48 | Outpatient (AMB) | payer MEDICARE, MEDICAID, SELFPAY ==
--- NOTE | 2024-09-20 09:12 | MHC.OFFVIS ---
Intake Visit Reasons: GnRH/follow up Intake Note: Patient is present for [facility] F/U Urology Medication:PREDNISONE,TAMSULOSIN,ABIRATERONE,OXYBUTYNIN Antibiotic Allergy:NONE Blood Thinner:NONE Ambulance Attendant Required: No Allergies metformin Allergy (Intermediate, Verified 09/20/24 09:13) Stomach Upset HPI Comments Details: Christiano is a pleasant male. He is a patient of Dr. Partida. He is seen for the following urologic conditions - prostate cancer - radiation cystitis Follows with Dr. Caballero - Oncology at [facility] Kuwaiti translation performed in office by qualified medical asst [facility] to be given Oxybutynin refill Six-month follow-up office Noted to feel burning with urination. UA performed in office. 3+ glucose. Patient did state morning sugars have been 170s. Encourage diabetic control. Is on SGLT2 which can cause burning. 10/08 Here for GnRH Recent PSMA PET scan results reviewed from [facility]. Shows slow progression of bony disease and interval development of small para-aortic nodes. 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 There was discussion between [facility] and [facility] radiation oncology that he would still be a candidate for [id number] the future if the abiraterone and GnRH ceases to work 06/10 - PSA 4.1 Has not been seen in over a year Last imaging 2021 - Had previously been cycling abiraterone whilst on GnRH and Prolia Has been receiving chemotherapy treatment for his colon cancer at [facility] - 6 cycles of Taxotere Last GnRH was administered the in March Imaging obtained from [facility] which shows PET-CT that has progressive extensive osseous metastases Is reporting back pain and joint pain Current PSA is 4.1 which is relatively well-controlled Referral to [facility] for BARON 177 04/08 PSA 2.5 - still staying in control Had colostomy for colorectal cancer - neuroendocrine adenocarcinoma of the rectum Continue cycling abiraterone GnRH and Prolia today Labs in 3 months with PET-CT - will likely consider monthly denosumab 01/06 Lab work shows PSA controlled - 1.9 T <1 Continue cycling abiraterone per [facility] 3 month follow-up lab work with PSMA scan Recent diagnosis of colon cancer 07/09 bone scan shows no progression since December Has been cycling abiraterone 1 month on and 1 month off Prostate cancer [place] 9 initial therapy radiation in [place] with injections 2013 - Last Lupron 10/06 Castrate resistant non metastatic prostate cancer Diagnosed 2015 Initial pathology Jennifer 7 and 9 Initial therapy external beam radiation with 2 years of hormones Subsequent slight rise in PSA and was started on Casodex PSA - 08/02 .4, 05/04 .4, 04/05 2.0, 08/04 2.3, 10/04 2.9 T 4, 04/06 7.0, 06/07 T 3, 10/05 1.8 T 5, 01/05 4.1 T5, 04/07 2.7 T2, 06/08 1.9, 10/06 3.2 T 3 Imaging - 05/05 bone scan negative - 06/07 DEXA scan osteopenia - 01/05 Bone Scan New L5 changes - 01/05 PT-CT PSMA [facility] multiple small spinal metastases and question of kim involvement - 08/06 bone scan no further progressive changes. Remains with spinal Mets and question of kim involvement. Current therapy GnRH with anti androgen initiated 01/04 Lower urinary tract symptoms Urgency and frequency Good response to tamsulosin PFSH Medical History Hemorrhoids Hematochezia Anemia Diabetes mellitus Prostate cancer Surgical History History of appendectomy Family History Mother Diabetes Father Cancer Social History Household Members: Spouse Housing: Apartment Alcohol intake: former Patient Tobacco Use Status: Never used Tobacco service: No Current occupational status: retired Review of Systems Const Denies chills and Denies fever(s) Card Reports no additional complaints and Denies syncope Resp Denies cough GI Denies abdominal pain and Denies heartburn Reports as per HPI and Denies change in libido Neuro Denies syncope Psych Denies change in libido Endo Denies change in libido Physical Exam Const General: cooperative, healthy appearing, comfortable and no acute distress Orientation/consciousness: patient oriented x3 HEENT Face and sinus: Yes normal facial exam Mouth: moist mucous membranes Neck Neck: Yes normal visual inspection, Yes full ROM and Yes trachea midline Chest Chest palpation & inspection: normal inspection of the chest Resp Effort & Inspection: normal respiratory effort, able to speak in complete sentences and no respiratory distress GI Inspection: Yes normal to inspection Back/Spine/Pelvis Cervical Spine: normal cervical lordosis Thoracic/Lumbar Spine: thoracic and lumbar spine normal to inspection Skin General skin exam: no rashes or lesions noted Neuro General: patient oriented x3, gait normal, tone normal and moves all extremities Extrem General: Yes normal to inspection and Yes capillary refill normal Office Meds Eligard (6 month) 45 mg (6 month) subcutaneous syringe Performing Provider: Mario Al MD [facility] Administered by: Brandon Busby LPN on 09/20/24 09:42 Dose Route Admin Location Dispensed Lot Number Expiration Date [facility] Needle Punch Machine Operator 45 mg subcut right arm 45 mg [id number] 01/15/26 89928-085-56 [employer]. Results AMB Urinalysis, Automated UA Leukoctes 0 Emilie/uL Last Edit by DAPHNE Michael on 09/20/24 09:45 UA Nitrite Negative Last Edit by DAPHNE Michael on 09/20/24 09:45 UA Urobilinogen 0.2 mg/dL Last Edit by DAPHNE Michael on 09/20/24 09:45 UA Protein 30 mg/dL Last Edit by DAPHNE Michael on 09/20/24 09:45 UA pH 6.0 Last Edit by DAPHNE Michael on 09/20/24 09:45 UA Blood 0 Henry/uL Last Edit by DAPHNE Michael on 09/20/24 09:45 UA Specific [place] 1.015 Last Edit by DAPHNE Michael on 09/20/24 09:45 UA Ketone Negative Last Edit by DAPHNE Michael on 09/20/24 09:45 UA Bilirubin 0 mg/dL Last Edit by DAPHNE Michael on 09/20/24 09:45 UA Glucose 1000 mg/dL Last Edit by DAPHNE Michael on 09/20/24 09:45 Results Reviewed Results Reviewed: Laboratory Last Values Urine pH (Auto) 6.0 09/20/24 09:44 Specific [place] (Auto) 1.015 09/20/24 09:44 Urine Protein (Auto) 30 mg/dL 09/20/24 09:44 Glucose (UA)(Auto) 1000 mg/dL 09/20/24 09:44 Urine Ketones (Auto) Negative 09/20/24 09:44 Urine Blood (Auto) 0 Henry/uL 09/20/24 09:44 Urine Nitrite (Auto) Negative 09/20/24 09:44 Urine Bilirubin (Auto) 0 mg/dL 09/20/24 09:44 Urine Urobilinogen (Auto) 0.2 mg/dL 09/20/24 09:44 Leukocyte Esterase (Auto) 0 Emilie/uL 09/20/24 09:44 Assessment & Plan Assessment & Plan (1) Rising PSA following treatment for malignant neoplasm of prostate: Code(s): R97.21 - Rising PSA following treatment for malignant neoplasm of prostate Category: Medical (2) Prostate cancer metastatic to bone: Code(s): C61 - Malignant neoplasm of prostate; C79.51 - Secondary malignant neoplasm of bone Category: Medical Plan Six-month follow-up lab work, GnRH Orders: Orders AMB Urinalysis Automated Today Z13.9 - Encounter for screening, unspecified Prostate Specific Antigen 6 Months C61 - Malignant neoplasm of prostate, C79.51 - Secondary malignant neoplasm of bone Testosterone, Total 6 Months C61 - Malignant neoplasm of prostate, C79.51 - Secondary malignant neoplasm of bone AMB Leuprolide Injection - Practice Supplied Today C61 - Malignant neoplasm of prostate, C79.51 - Secondary malignant neoplasm of bone, R97.21 - Rising PSA following treatment for malignant neoplasm of prostate Patient Instructions: This note is constructed using voice recognition software. While every effort has been made to ensure accuracy straddle buggy operator errors may have been included. Imaging studies, laboratory and physical exam results were discussed and reviewed in detail. No major barriers to patient understanding were identified. An opportunity to ask questions regarding the treatment plan was provided. All questions were answered. The patient expressed understanding and agreement with the above treatment plan. The patient is aware they should contact our office by phone for worsening of their current condition or the appearance of new urologic symptoms. Compliance is encouraged with any medications and followup testing that is ordered. It is a privilege to participate in the urologic care of your patient. If you have any questions or concerns regarding treatment for the above conditions, or other urologic issues, please do not hesitate to contact me. The office telephone contact is [phone]. Sincerely, Dr Mario Al MD, HO [facility] - Urology Compassionate Specialist Care for the Genitourinary System Coding Level of Care Code Est Pt Level 4 (56698) Complex EM visit Add On G2211 Diagnoses Rising PSA following treatment for malignant neoplasm of prostate R97.21 Prostate cancer metastatic to bone C61; C79.51
--- OUTSIDE RECORDS SUMMARY | 2024-09-20 09:13 | XMS_ITS | Encounter Summary ---
Author Organization [employer] Address [address] [place] [address] Care Team Providers Care Skip Hoist Engineer Name Role Phone Zena Sarmiento [facility] Primary Care Provider [phone] Encounter Details Date Type Department Care Team (Latest Contact Info) Description 05/12/2019 Abstract [facility] Dental, Provider, DDS Social History Tobacco [...] Care Team (Late st Contact Info) Description 11/13/2024 11:15 AM EDT Office Visit [facility] [address] [place] [address] Zena Sarmiento FNP [address] [place] [address] documented as of this encounter Visit Diagnoses Not on filedocumented in this encounter Care Teams Skip Hoist Engineer Relationship Specialty Start Date End Date Zena Sarmiento FNP [address] [place] [address] PCP - General Family Medicine 07/16/22 Bakari ANDERSON 06/17/24 documented as of this encounter
--- OUTSIDE RECORDS SUMMARY | 2024-09-20 09:13 | XMS_ITS | Clinical Summary ---
Author Organization [employer] Address [address] [place] [address] 7t [place] [address] Care Team Providers Care Surgical Scheduler Name Role Phone Zena Sarmiento [facility] Primary Care Provider [phone] Allergies Active Allergy Reactions Criticality Noted Date Comments Lisinopril Cough 03/04/2018 Losartan Cough 10/21/2018 Oxycodone Shortness of breath High 08/12/2017 Medications acetaminophen (Tylenol 8 Hour) 650 MG ER tablet Take 2 tablets by mouth every 8 (eight) hours. 01/23/20 22 Active bicalutamide (Casodex) 50 MG chemo tablet Take 1 tablet by mouth 1 (one) time each day. Active sodium chloride ([place]) 0.65 % nasal spray 1-2 spray on [...] mg by mouth in the morning. 02/16/20 23 Active sodium chloride 7 % nebulizer solution nebulizer solution Inhale 4 mL 2 times daily. 11/25/19 22 Active omeprazole (PriLOSEC) [address] capsule Take 20 mg by mouth in the morning. 11/20/19 22 Active Linzess 290 MCG capsule TAKE 1 CAPSULE BY MOUTH 30 MINUTES BEFORE FIRST MEAL OF THE DAY ON EMPTY (STOMACH) 02/16/20 23 Active leuprolide, 3-month, (Lupron Depot) 11.25 MG injection Inject 22.5 mg into the shoulder, thigh, or buttocks every 6 months. Active albuterol 2.5 MG/0.5ML nebulizer solution Inhale 2.5 mg 2 times daily. 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 Apply 1 every 15 days as directed for CGM 2 each 07/17/19 25 Active Lantus SoloStar 100 UNIT/ML penIndications:T ype II diabetes mellitus with nephropathy (CMS/HCC) Inject 26 Units under the skin Once per day. 15 mL 3 07/17/19 25 Active Active Problems Problem Noted Date Diagnosed Date Colostomy prolapse 06/02/2024 Chronic right-sided low back pain without sciati ca 10/21/2023 Overview (10/21/2023): -Refill Voltaren sent to [facility] PRN -Follow up PRN Primary neuroendocrine carcinoma of rectum 02/07 Overview (06/16/2023): ?? Dr. Caballero, [facility] Oncology ?? S/p colon resection 04/2023 ?? Well-differentiated neuroendocrine tumor (grade 2; Metastatic well- differentiated neuroendocrine tumor involving four of seventeen lymph nodes (4/17). Pathologic Stage Classification (pTNM, AJCC 8th Edition) pT Category: pT4 pN Category: pN1 Assessment & Plan (04/19/2023 6:24 AM EST): ?? Follow as scheduled with oncology Chronic constipation 08/10/2022 Overview (11/27/2022): ?? Colonoscopy 03/2021, [facility], polyp removed, need records ?? Senna [...] Healthcare maintenance 08/10/2022 Overview (08/10/2022): C-Scope: 03/2021 [facility] PSA: Hx of prostate cancer, followed by urology PSA 07/2022 1.9 Obstructive sleep apnea 06/06/2018 Overview (08/10/2022): ?? followed by [facility] Atherosclerosis of [place] co ronary artery of [place] heart with angina pectoris 12/09/2017 Overview (04/19/2023): ?? 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 Caballero, [facility] oncology Jennifer 9 Leuprolide (Eligard/GnRH agonist) Abiraterone (Zytiga) Denosumab (prolia) - 07/06 bone scan negative - 06/07 DEXA scan osteopenia - 01/05 PT-CT [facility] multiple small spinal metastases and question of [...] diabetes mellitus with nephropathy 03/18 Overview (03/01/2024): [facility] Lantus Neuroendocrine tumor of rectum potential contraindication [...] Encounters Date Type Department Care Team Description 09/14/[address] [address] Zena Sarmiento FNP chart prep 09/11/2024 Patient Outreach [address] [address] Zena Sarmiento FNP Pre-visit Planning (SDOH screening is negative) 07/17/2024 Telephone [facility] [place] [address] Zena Sarmiento FNP CGM PA for reader and sensor 07/14/2024 11:15 AM EST Office Visit [facility] [place] [address] Zena Sarmiento FNP Type II diabetes mellitus with nephropathy ([facility]) 07/14/2024 Travel 07/02/2024 Refill [facility] [place] [address] Zena Sarmiento FNP Primary hypertension 07/01/2024 Refill [facility] [place] [address] Zena Sarmiento FNP from Last 3 Months Immunizations Name Administration [...] housing situation today? I have polly bennett 09/11/[address] you li ve. Do you have problems with any of the following? None of the above 09/11/2024 Food Insecurity Answer Date Recorded Within the past 12 months, y ou worried that your food would run out before you got money to buy more: Never True 09/11/2024 Within the past 12 months,th e food you bought just didn't last and you didn't have enough money to get more: Never True Transportation Answer Date Recorded In the past 12 months, has l ack of transportation kept you from medical appts, meetings, work or from getting things needed for daily living? No 09/11/2024 Utilities Answer Date Recorded In the past 12 months, has t he electric, gas, oil or water company threatened to shut off services in your home? No 09/11/2024 Depression Answer Date Recorded Patient Health Questionnaire-2 Score 0 03/01/2024 Internet Access Answer Date Recorded Internet Access Q1 Yes 09/11/2024 Internet Access Q2 Not on file 09/11/2024 Sex and Gender Information Value Date Recorded [...] Description 11/13/2024 11:15 AM EDT Office Visit [facility] [address] [place] [address] [facility] [address] [place] [address] Health Maintenance Due Date Last Done Comments Alcohol/Substance Use Screening 1962 RSV Patients and Patients Aged 60 years or older (1 - Risk 60-74 years 1-dose series) 2010 Lipid Panel 08/05/2023 08/04/2022 COVID-19 Vaccine ( season) 2024 04/12/2023, 03/31/2022, 10/14/2021, Additional history exists Diabetes: Foot Exam 04/12/2024 04/12/2023, 04/12/2023, 04/12/2023 Diabetes: Hemoglobin A1C 10/11/2024 025, 06/02/2024, 04/17/2024, Additional history exists Depression Screening 03/01/2025 03/01/2024, 03/01/20 24 Eye Exam 03/19/2025 03/19/2023, 07/2022, 03/19/2023, Additional history exists Tobacco Screening 07/16/2025 07/16/2024 SDOH Screening 09/11/2025 09/11/2024 DTaP/Tdap/Td Vaccines (2 - Td or Tdap) 03/10/2031 03/10/2021 Pneumococcal Vaccine: 50+ Years Completed 01/06/2021, 06/12/2017 Zoster Vaccines Completed 03/10/2021, 01/06/2021 Influenza Vaccine Completed 02/25/2024, , 02/06/2022, Additional history exists Colorectal Cancer Screening Discontinued Sigmoidoscopy Discontinued 03/20/2024, 01/20/2023 CT Colonography Discontinued Colonoscopy Discontinued FIT DNA/Cologuard Discontinued FIT Discontinued FOBT Discontinued HIB Vaccines Aged Out No longer eligi [...] 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) LIPID PANEL, STANDARD Routine 08/04/2022 11:57 AM EDT Type II diabetes mellitus with nephropathy ([facility]/HCC) from Last 3 Months or Most Recently Relevant to Health Maintenance Results * (ABNORMAL) POCT HGB A1C (07/14/2024 12:01 PM EST) Pathologist [facility] Hemoglobin A1C 8.2(A) 4.0 - 6.0 % Blood 07/14/2024 12:0 1 PM EST [facility] POINT OF CARE TEST ENTER/EDIT ORDERABLES Final Result * POCT glucose manually resulted (07/14/2024 11:33 AM EST) Pathologist [facility] Glucose Blood, POC 154 60 - 200 mg/dL Comment:R BS QC Media Lot # [id number] Lot# Expiration Date 387 Blood Capillary blood specimen / Unknown 07/14/2024 11:33 AM EST [facility] POINT OF CARE TEST ENTER/EDIT ORDERABLES Final Result * (ABNORMAL) Lipid Panel, Standard (08/04/2022 11:57 AM EDT) Pathologist [facility] Cholesterol, Total 143 <200 mg/dL [facility] HDL Cholesterol 47 > OR = 40 mg/dL [facility] Triglycerides 152(H) <150 mg/dL [facility] LDL Cholesterol 73 mg/dL (calc) [facility] Comment: Reference range: <100 Desirable range <100 mg/dL for primary prevention; ?? <70 mg/dL for patients with CHD or diabetic patients with > or = 2 CHD risk factors. LDL-C is now calculated using the Marija calculation, which is a validated novel method providing better accuracy than the Friedewald equation in the estimation of LDL-C. Angelito WYNNE et al. ANIKA. 2013;310(19): 4298-4156 (http://education.SameGrain/faq/PWA178) Chol/HDLC Ratio 3.0 <5.0 (calc) [employer] Non-HDL Cholesterol 96 <130 mg/dL (calc) [employer] Comment: For patients with diabetes plus 1 major ASCVD risk factor, treating to a non-HDL-C goal of <100 mg/dL (LDL-C of <70 mg/dL) is considered a therapeutic option. Blood Venous blood specimen / Unknown 08/04/2022 11:57 AM EDT 08/04/2022 11:58 AM EDT Narrative [facility] - 08/05/2022 9:10 PM EDT FASTING:NO FASTING: NO [facility] LAB BLOOD ORDERABLES Final Re sult [facility] [address] [place] [address] [facility] [address] [place] [address] from Last 3 Months or Most Recently Relevant to Health Maintenance Insurance [facility] STANDARD [employer] MEDICARE REPLACEMENT Care Teams Surgical Scheduler Relationship Specialty Start Date End Date Zena Sarmiento FNP [address] [place] [id number] PCP - General Family Medicine 07/16/22 Bakari ANDERSON 06/17/24
--- OUTSIDE RECORDS SUMMARY | 2024-09-20 09:13 | XMS_ITS | Encounter Summary ---
Author Organization [employer] Address [address] [place] [address] Care Team Providers Care Regional Maintenance Manager Name Role Phone Zena Sarmiento [facility] Primary Care Provider [phone] Encounter Details Date Type Department Care Team (Late st Contact Info) Description 01/01/2023 Orders Only [facility] [address] [place] [address] Itzel Cortez LPN Social History Tobacco Use [...] Description 11/13/2024 11:15 AM EDT Office Visit [facility] [address] [place] [address] GuillerminaZena FNP [address] [place] [address] documented as of this encounter Visit Diagnoses Not on filedocumented in this encounter Additional Health Concerns Assessment Noted Time PHQ-9 Depression Total Score: 8 08/05/19 23 10:56 AM EDT documented as of this encounter Care Teams Regional Maintenance Manager Relationship Specialty Start Date End Date Zena Sarmiento FNP [address] [place] [address] PCP - General Family Medicine 07/16/22 Baakri ANDERSON 06/17/24 documented as of this encounter
--- OUTSIDE RECORDS SUMMARY | 2024-09-20 09:13 | XMS_ITS | Encounter Summary ---
Author Organization [employer] Address [address] 7[address] [place] [address] Care Team Providers Care Investment Broker Name Role Phone Guillermina Zena POLICE MANAGER Primary Care Provider [phone] Encounter Details Date Type Department Care Team ([facility] st Contact Info) Description 04/06/2024 Telephone [facility] [address] [place] [address] Milly Rosado, PharmD [address] [place] [address] Social History Tobacco Use Types Packs/Day Years [...] questions, please reach out my extension is [phone] thank you. documented in this encounter Plan of Treatment Upcoming Encounters Date Type Department Care Team (Late st Contact Info) Description 11/13/2024 11:15 AM EDT Office Visit [facility] [address] [place] [address] Zena Sarmiento FNP [address] [place] [address] documented as of this encounter Visit Diagnoses Not on filedocumented in this encounter Additional Health Concerns Assessment Noted Time PHQ-9 Depression Total Score: 0 03/01/20 9:09 AM EDT documented as of this encounter Care Teams Investment Broker Relationship Specialty Start Date End Date Zena Sarmiento FNP [address] [place] [address] PCP - General Family Medicine 07/16/22 Bakari ANDERSON 06/17/24 documented as of this encounter
--- OUTSIDE RECORDS SUMMARY | 2024-09-20 09:13 | XMS_ITS | Encounter Summary ---
Author Organization [employer] Address [address] [facility] [address] [place] [address] Care Team Providers Care Cnc Machinist 2Nd Shift Name Role Phone Guillermina [facility] Primary Care Provider Encounter Details Date Type Department Care Team (Late st Contact Info) Description 04/29/2022 Orders Only [facility] [address], [place] [phone] Cortney Mcgovern LPN Social History Tobacco Use [...] 11/13/2024 11:15 AM EDT Office Visit [facility] MEDICINE [address], [place] [phone] [place] [facility] [address] [place], [place] [phone] documented as of this encounter Procedures Procedure Name Priority Date/Time Associated Diagnosis Comments CBC WITH AUTO DIFFERENTIAL Routine 07/24/2022 9:21 AM EST COMPREHENSIVE METABOLIC PANEL Routine 07/24/2022 9:21 AM EST documented in this encounter Results * (ABNORMAL) Comprehensive Metabolic Panel (07/24/2022 9:21 AM EST) Sodium 139 135 - 145 mmol/L [facility] Potassium 4.4 3.3 - 5.1 mmol/L [facility] Chloride 103 96 - 108 mmol/L [facility] Carbon Dioxide 28 22 - 29 mmol/L [facility] Anion Gap 12 12 - 20 [facility] Urea Nitrogen (BUN) 18(H) 9 - 16 mg/dL [facility] Creatinine, Serum 0.89 0.5 - 1.4 mg/dL [facility] Creatinine Clr Calc Pharmacy 77.8 [facility] Comment:eGFR (calculated fro m the MDRD study equation) and eCrCl(calculated from the Cockcroft-Gault equation) are based ondifferent parameters and may not yield comparable results.If eCrCl result is absurd, please check patient'sheight/weight. Estimated Glomerular Filt Rate >60 [facility] Comment:NOTE: For -Am erican individuals, multiply the result by 1.210.Chronic Kidney Disease: Estimated GFR < 60 mL/min/[id number] Kidney Disease: Estimated GFR < 15 mL/min/1.73m2 Glucose 113 60 - 115 mg/dL [facility] Calcium 9.4 8.4 - 10.2 mg/dL [facility] Bilirubin, Total 0.5 0.0 - 1.0 mg/dL [facility] Aspartate Amino Transferase 19 5 - 37 U/L [facility] Alanine Aminotransferase 16 0 - 40 U/L [facility] Total Protein 6.7 6.5 - 8.0 g/dL [facility] Albumin Level 3.8 3.5 - 5.0 g/dL [facility] Alkaline Phosphatase 60 39 - 117 U/L [facility] 07/24/2022 9:21 AM EST 07/24/2022 9:23 AM EST us [facility] External Provider LAB BLO OD ORDERABLES Final Result [facility] [address] [place] [address] [phone] * (ABNORMAL) CBC auto differential (07/24/2022 9:21 AM EST) White Blood Count 7.4 4.8 - 10.8 X10*3/uL [facility] Red Blood Count 5.25 4.60 - 5.80 X10*6/uL [facility] Hemoglobin 13.2(L) 14.0 - 18.0 g/dl [facility] Hematocrit 40.1(L) 42.0 - 52.0 % [facility] Mean Corpuscular Volume 76.4(L) 80.0 - 98.0 fL [facility] Mean Corpuscular Hemoglobin 25.1(L) 27.0 - 33.0 pg [facility] Mean Corpuscular HGB Conc 32.9 31.0 - 36.0 g/dl [facility] Red Cell Distribution Width 13.9 11.0 - 16.0 % [facility] Platelet Count 274 160 - 400 X10*3/uL [facility] Mean Platelet Volume 10.1 9.4 - 12.4 fL [facility] Neutrophils Percent Auto 55.3 45 - 73 % [facility] Imm Gran Pct Auto 0.1 0.0 - 0.4 % [facility] Lymphocytes Percent Auto 31.8 20 - 40 % [facility] Monocytes Percent Auto 8.2 2 - 11 % [facility] Eosinophils Percent Auto 3.4 0 - 4 % [facility] Basophils Percent Auto 1.2 0 - 2 % [facility] NRBC Pct Auto 0.0 0.0 - 0.2 /100WBC [facility] Neutrophils Absolute Auto 4.1 2.0 - 8.3 x10*3/uL [facility] Imm Gran Abs Auto 0.01 0.00 - 0.03 X10*3/uL [facility] Lymphocytes Absolute Auto 2.4 1.2 - 4.9 X10*3/uL [facility] Monocytes Absolute Auto 0.6 0.1 - 1.2 X10*3/uL [facility] Eosinophils Absolute Auto 0.3 0.0 - 0.4 X10*3/uL [facility] Basophils Absolute Auto 0.1 0.0 - 0.2 X10*3/uL [facility] NRBC Abs Auto 0.000 0.0 - 0.012 X10*3/uL [facility] 07/24/2022 9:21 AM EST 07/24/2022 9:23 AM EST us [facility] External Provider LAB BLO OD ORDERABLES Final Result [facility] [address] [place] [address] [phone] documented in this encounter Visit Diagnoses Not on filedocumented in this encounter Care Teams Cnc Machinist 2Nd Shift Relationship Specialty Start Date End Date Zena Sarmiento FNP [address] [place] [phone] PCP - General Family Medicine 07/16/22 Bakari ANDERSON 06/17/24 documented as of this encounter
== END 2024-09-20 09:58 | disposition home or self-care (01) ==
LOC: HO.HUSH 08:49
PROVIDERS: PCP Registered Nurse; Visit Provider Urology
DX: R97.21 Rising PSA following treatment for malignant neoplasm of prostate (principal); C61 Malignant neoplasm of prostate; C79.51 Secondary malignant neoplasm of bone; Z13.9 Encounter for screening, unspecified
CPT/HCPCS: 99214; G2211

== ENCOUNTER → 2024-09-20 08:48 | Outpatient (BNVA) | payer MEDICARE, MEDICAID, SELFPAY | PROVIDERS: PCP Registered Nurse; Visit Provider Urology | DX: R97.21 Rising PSA following treatment for malignant neoplasm of prostate (principal); C61 Malignant neoplasm of prostate; C79.51 Secondary malignant neoplasm of bone | CPT/HCPCS: 81003; 96402; 99212; J9217 ==

== ENCOUNTER 2024-10-16 10:24 | Emergency (ER) | payer OTHER, SELFPAY ==
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
[2024-10-16 10:38] VITALS: BP 164/82; BP 182/81; PULSE 94; PULSE 97; RESP 16; TEMP 36.8; O2SAT 99; BMI 30.4
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
[2024-10-16 11:53] VITALS: BP 182/81; PULSE 97; RESP 16; TEMP 36.8; O2SAT 99
[2024-10-16] MEDS: Acetaminophen 325 MG TABLET 975 MG PO (12:23)
[2024-10-16 12:54] VITALS: BP 141/72; PULSE 78; RESP 18; TEMP 36.2; O2SAT 95
[2024-10-16 14:24] VITALS: BP 145/80; PULSE 80; RESP 14; TEMP 36.5; O2SAT 98
== END 2024-10-16 14:25 | disposition home or self-care (01) ==
PROVIDERS: Emergency Provider Emergency Medicine Emergency Medical Services; PCP Registered Nurse
DX: R51.9 Headache, unspecified (principal); M54.2 Cervicalgia; R07.89 Other chest pain; R10.2 Pelvic and perineal pain; M79.605 Pain in left leg; Z79.899 Other long term (current) drug therapy
CPT/HCPCS: 70450; 71045; 72125; 72170; 73552; 99284; 99285

== ENCOUNTER → 2024-10-16 11:43 | Outpatient (BNV) | payer OTHER, SELFPAY | PROVIDERS: Emergency Provider Emergency Medicine Emergency Medical Services; PCP Registered Nurse; Visit Provider Radiology Diagnostic Radiology | DX: M54.2 Cervicalgia (principal); R90.82 White matter disease, unspecified; M25.562 Pain in left knee; R07.89 Other chest pain; M25.559 Pain in unspecified hip; V89.2XXA Person injured in unspecified motor-vehicle accident, traffic, initial encounter | CPT/HCPCS: 71045; 72125; 72170; 73552 ==

== ENCOUNTER 2024-12-22 15:45 | Outpatient (REF) | payer OTHER, SELFPAY ==
--- NOTE | ~2024-12-22 | MR_ITS ---
EXAMINATION: MR BRAIN WITHOUT AND WITH CONTRAST CLINICAL INFORMATION: Tinnitus, right-sided. Loss of hearing, right-sided. Headache. History of prostate cancer and colon cancer. COMPARISON: July 02, 2023. TECHNIQUE: Multiplanar, multisequence MRI of the brain was obtained before and after the intravenous administration of 9.0 mL gadolinium based (Gadavist) without reported immediate complications.. FINDINGS: No restricted diffusion. No abnormal enhancement within the intra-axial or the extra-axial compartment of the cranium. No acute intracranial hemorrhage, mass effect, midline shift, hydrocephalus or herniation. Bilateral multifocal patchy, punctate and confluent deep periventricular white matter and subcortical white matter hyperintense T2 FLAIR signal involving centrum semiovale and brown radiata. Flow-void signal within the main cerebral vessels is normal. There is a high riding right internal jugular bulb. No abnormal enhancement within the cochlear or vestibular components of the 8th cranial nerves. No signal abnormality or enhancing lesion in the cisternal segments and entry zones of the trigeminal nerves. No signal abnormality or enhancing lesion in the Meckel's caves. There is a dolichoectatic vertebrobasilar system. The anterior inferior cerebral arteries are type I bilaterally. Prominence of the extra-axial CSF spaces cerebral sulci and ventricles likely mild central volume loss probably age-related. Sellar/suprasellar region demonstrated no gross masses or signal abnormality. There is normal position of the cerebellar tonsils. There is a nonenhancing hyperintense T2 bone lesion in the right parietal bone. MR/MR head/brain wo/w con IMPRESSION: No intracranial metastasis. No vestibular schwannoma. No acute stroke. White matter disease likely related to small vessel occlusive disease. High riding right internal jugular bulb.. Electronically signed by: Marito Greene MD 12/25/2024 10:37 AM EDT
--- OUTSIDE RECORDS SUMMARY | 2024-12-22 15:54 | XMS_ITS | Clinical Summary ---
Author Organization [facility] Address [address] [place] [id number] Phone Care Team Providers Care Cold Roller Name Role Phone Travis Caballero DO Unavailable Obed Barnes MD Unavailable [phone] Luis F Pearson CARDIAC CATH LAB RADIOLOGY TECHNOLOGIST Unavailable [phone] [facility] Primary Care Provider [phone] Lisa Denson RN Unavailable [email or web address] Allergies Active Allergy Reactions Criticality Noted Date Comments Lisinopril Cough 03/04/2018 Losartan Cough 10/21/2018 Oxycodone Shortness Of Breath High 08/12/2017 Medications leuprolide (LUPRON) 11.25 mg IM injection syringe Inject 22.5 mg into the muscle every 6 (six) months. Active aspirin 81 MG EC tablet Take 1 tablet (81 mg total) by mouth every other day. 30 tablet 5 06/27/19 Active fluticasone propionate (FLONASE) 50 mcg/actuation nasal spray 1 spray by Nasal route daily. 1 Bottle 11 11/15/19 Active lancets MiscIndications:D iabetic polyneuropathy associated with type 2 diabetes mellitus 1 each by Miscellaneous route 3 (three) times a day before meals. 300 each 3 10/02/19 20 Active nebulizer and compressor Tarah 1 filter/month 2 disposable neb kits/month 1 permanent neb kit/6 months Every six hours PRN for wheezing/shortne ss of breath 1 each 01/02/20 20 Active chlorhexidine (PERIDEX) 0.12 % solution Use as directed 15 mL in the mouth or throat as directed. 120 mL 5 08/23/19 21 Active amLODIPine (NORVASC) 10 MG tabletIndications :Hypertension Take 1 tablet (10 mg total) by mouth daily. 90 tablet 5 04/15/20 Active polyethylene glycol (MIRALAX) 17 gram/dose powderIndications :Constipation, unspecified constipation type Take 17 g by mouth daily. 1014 g 5 04/15/20 Active cyanocobalamin, vitamin B-12, 1,000 mcg Subl sublingual tabletIndications :Vitamin B12 deficiency Place 1 tablet (1,000 mcg total) under the tongue daily. 30 tablet 5 10/28/19 22 Active omeprazole (PRILOSEC) 20 MG capsule Take 1 capsule (20 mg total) by mouth daily. 90 capsule 3 11/20/19 22 Active albuterol 2.5 mg/0.5 mL nebulizer solutionIndicatio ns:Bronchiectasis without complication Take 0.5 mL (2.5 mg total) by nebulization 2 (two) times a day. Dilute with 4mL 7% sodium Chloride 30 mL 11/25/19 Active Additional Information Patient not taking.Reported on 04/17/2024 sodium chloride (HYPERSAL) 7 % NebuIndications:B ronchiectasis without complication Take 4 mL by nebulization 2 (two) times a day. 240 mL 11/25/19 22 Active atorvastatin (LIPITOR) 80 MG tabletIndications :Hyperlipidemia LDL goal <70 TAKE 1 TABLET BY MOUTH EVERY DAY 90 tablet 04/14/20 22 Active diclofenac sodium (VOLTAREN) 1 % Gel Apply 4 g topically 2 (two) times a day as needed for other (free text field) (for knee pain). 300 g 05/13/20 22 Active acetaminophen (TYLENOL) 325 mg tablet Take 2 tablets (650 mg total) by mouth every 6 (six) hours as needed. 0 01/24/20 23 Active ACCU-CHEK NIKOLAI PLUS Strp test stripsIndications :Type 2 diabetes mellitus with microalbuminuria, without long-term current use of insulin 1 each by Percutaneous route 3 (three) times a day before meals. DX:E 11.9 100 strip 11 07/07/19 24 Active prochlorperazine (COMPAZINE) 10 MG tablet Take 1 tablet (10 mg total) by mouth every 6 (six) hours as needed. 30 tablet 3 07/22/19 24 Active CALCIUM CITRATE-VITAMIN D3 ORAL Take 500 mcg by mouth daily. 06/17/19 25 Active cyclobenzaprine (FLEXERIL) 5 MG tablet Take 5 mg by mouth as needed for muscle spasms. 06/17/19 25 Active oxyBUTYnin (DITROPAN-XL) 10 MG 24 hr tablet Take 1 tablet by mouth every morning. 09/21/19 25 Active LANTUS SOLOSTAR U-100 INSULIN 100 unit/mL (3 mL) InPn injection penIndications:Ty pe 2 diabetes mellitus with microalbuminuria, without long-term current use of insulin Inject 28 Units under the skin daily. 30 mL 3 10/11/19 25 Active ADMELOG SOLOSTAR U-100 INSULIN 100 unit/mL injection penIndications:Ty pe 2 diabetes mellitus with microalbuminuria, without long-term current use of insulin Inject 4 Units under the skin daily with lunch. 15 mL 3 10/11/19 25 Active FARXIGA 10 mg tabletIndications :Type 2 diabetes mellitus with microalbuminuria, without long-term current use of insulin Take 1 tablet (10 mg total) by mouth daily. 90 tablet 3 10/11/19 Active insulin pen needles, disposable, 32 gauge x 5/32 NdleIndications:T ype 2 diabetes mellitus with microalbuminuria, without long-term current use of insulin For use with insulin up to twice daily 200 each 10/11/19 25 Active predniSONE (DELTASONE) 5 MG tablet Take 1 tablet (5 mg total) by mouth daily. Take daily as long as on abiraterone 90 tablet 3 11/10/19 25 025 Active abiraterone (ZYTIGA) 250 mg TabIndications:Ma lignant neoplasm of prostate Take 4 tablets (1,000 mg total) by mouth daily. Take on an empty stomach. Follow instructions given by provider. 120 tablet 12/20/19 25 025 Active abiraterone (ZYTIGA) 250 mg TabIndications:Ma lignant neoplasm of prostate Take 4 tablets (1,000 mg total) by mouth daily. Take on an empty stomach. Follow instructions given by provider. 120 tablet 11/23/19 25 025 Discontin ued(Reord er) Active Problems Patient Care Coordination No te Formatting of this note migh t be different from the original. Height 171.9cm no shoes on. 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 Concerned about risk for recurrent infection. Strongly encouraged to resume at least once daily Hypersal nebs in the morning. Assessment & Plan (06/11/2020 11:51 AM EST): Markedly improved with initiation of pulmonary hygiene regimen. Would continue indefinitely use of twice daily HyperSal nebs. Low threshold to obtain culture and, if indicated treat with antibiotics for significant change in sputum quality or quantity. Assessment & Plan (01/02/2020 3:21 PM EDT): Mild diffuse lower lobe bronchiectasis on last chest CT April 2018 with now persistent productive cough with yellow sputum. PLAN: Submit sputum for culture prior to any antibiotics. Repeat chest CT, noncontrast to evaluate for possible progression Recommend pulmonary hygiene regimen with twice daily albuterol and hypertonic saline nebs with Aerobika flutter device. Patient will likely require office nurse visit with security advisor to assist in proper use of nebulizer. Cough 06/13/2019 Assessment & Plan (06/13/2019 9:35 AM EST): Suspect due to lower airway source. Start with sputum culture and then start empiric course of amoxicillin 1 tablet twice daily x10 days. If cough fails to improve, and culture unremarkable, consider repeat imaging. Cervical arthritis 02/23/2019 Abnormal sputum 11/14/2018 Assessment & Plan (06/13/2019 9:35 AM EST): Obtain sputum for culture as above. Assessment & Plan (11/14/2018 8:38 AM EDT): Mucus seen on chest CT with and trachea. Given chronic sputum production in the setting of tracheal bronchomalacia, recommend proceed with bronchoscopy for airway evaluation. Plan to wait an additional 1 to 2 months to allow long enough time on CPAP to assess ongoing benefits. Flonase for possible postnasal drip. Additionally, as above, reviewed cleaning techniques and likely avoid bleach CPAP equipment. Iron deficiency anemia 10/21/2018 Vitamin B12 deficiency 10/21/2018 Assessment & Plan (10/02/2019 4:46 PM EDT): Most recent vit B12 level was in reasonable range last fall Class 1 obesity 08/22/2018 Assessment & Plan (12/12/2021 1:19 PM EDT): Weight has been stable over the past year BMI ~35 Christiano's antihyperglycemic medication regimen does not put him at risk for weight gain, combination with SGLT2i therapy would potentially lead to more effective weight loss, it is unclear why he is no longer on Jardiance Assessment & Plan (01/10/2019 2:15 PM EDT): We did discuss trying to lose weight a bit today in the office. He will try to make some more diet modifications. Obstructive sleep apnea 06/06/2018 Overview (07/26/2018): noted on sleep study 06/06/18; [facility] Assessment & Plan (11/24/2021 9:33 AM EDT): Encouraged follow-up with sleep medicine services, particularly as seems to be having difficulty with equipment. Assessment & Plan (01/02/2020 3:20 PM EDT): Continue use of nocturnal CPAP. Assessment & Plan (11/14/2018 8:37 AM EDT): Congratulated on compliance with CPAP. Flonase administered for possible postnasal drip and congestion. Requested contact DME to review proper cleaning technique and gently recommend AVOIDING bleach. SOB (shortness of breath) 05/05/2018 Assessment & Plan (11/24/2021 9:33 AM EDT): Ongoing but stable exertional dyspnea. Likely multifactorial. Encouraged to resume pulmonary hygiene regimen and can see if it improves his dyspnea. Assessment & Plan (06/11/2020 11:50 AM EST): Significantly improved. Residual NUNO likely multifactorial, including chronic bronchiectasis chest congestion. Encouraged weight loss and activity. Assessment & Plan (01/10/2019 2:16 PM EDT): He tells me this is much improved since he has started wearing a CPAP at night. Hilar lymphadenopathy 04/06/2018 Overview (04/06/2018): On Chest CT 09/16/17 Assessment & Plan (04/06/2018 9:39 AM EST): Right hilar adenopathy seen on my review of CT pulmonary angiogram from 6 months ago. Schedule follow-up standard contrast chest CT. Will need electrolytes prior to contrast injection and will additionally check CBC with differential and monoclonal antibody studies. If adenopathy persists or evidence of enlargement, would pursue further evaluation. Wheezing 04/06/2018 Overview (04/06/2018): 10/14/17 Assessment & Plan (04/06/2018 9:35 AM EST): Suspect wheezing episode related to acute bronchitis in the setting of tracheobronchomalacia. No clinical evidence for asthma. Await pulmonary function test results. If evidence of bronchial reactivity, would consider trial of bronchodilator at that time. Apneic spell 04/06/2018 Assessment & Plan (04/06/2018 9:40 AM EST): Very high suspicion for significant sleep disordered breathing. Refer to sleep medicine for polysomnogram. Coronary artery disease 12/09/2017 Internal hemorrhoids 12/08/2017 Constipation 12/08/2017 Anemia 12/08/2017 Overview (12/08/2017): iron deficiency Tracheobronchomalacia 10/18/2017 Assessment & Plan (11/24/2021 9:32 AM EDT): Encouraged weight loss and ongoing compliance with nocturnal CPAP. Assessment & Plan (06/11/2020 11:49 AM EST): Currently asymptomatic. Doubt related to dyspnea. Continue nocturnal positive pressure therapy with CPAP. Assessment & Plan (01/02/2020 3:19 PM EDT): Encourage use of AerobiKa and continue nocturnal CPAP use. Assessment & Plan (06/13/2019 9:35 AM EST): Severe tracheomalacia. Need to resume CPAP VOLODYMYR. Assessment & Plan (11/14/2018 8:38 AM EDT): At least moderate radiographic tracheomalacia on CT imaging. Clinically improved with CPAP. Proceed with diagnostic bronchoscopy however to fully assess benefits of CPAP and as below. Assessment & Plan (04/06/2018 9:38 AM EST): Significant tracheomalacia noted on expiratory images from CT pulmonary angiogram in September. Unclear if end expiration versus forced expiration, latter of which may overestimate dynamic airway collapse. Nonetheless, will need full pulmonary function studies to assess degree of airflow obstruction. Will evaluate on full inspiratory CT imaging for significant changes. Given likely significant sleep apnea, will await sleep evaluation, full PFTs, and follow-up CT prior to scheduling fiberoptic bronchoscopy. 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 Blood cultures obtained. No fever or night sweats. Follow-up next week with Dr. Carballo, DIXON is being arranged 3 sets of blood cultures have been drawn, so far negative for growth, mass does not look like vegetation to shade cloth finisher Chronic gastritis 10/14/2017 Overview (10/14/2017): upper endoscopy by Dr. Partida 12/04/16 revealed H. pylori associated active chronic gastritis Assessment & Plan (10/14/2017 4:37 PM EDT): Continue PPI Atherosclerosis of [place] co ronary artery of [place] heart with angina pectoris 09/10/2017 Assessment & Plan (06/16/2019 3:00 PM EST): Recent addition of zetia to statin Has lipid panel pending Addition of SGLT2i therapy will help improve glucose control and will also likely benefit cardiovascular health Assessment & Plan (01/10/2019 2:14 PM EDT): Has significant cardiac risk factors he had had calcium on his CT of the chest. Really not having any symptoms. He should continue on aspirin lifelong and we should continue to optimize his risk factors. Assessment & Plan (04/05/2018 5:48 PM EST): -He has a history of abdominal CT which was notable for coronary calcium as well as having diabetes. He did have a normal nuclear stress test in the spring. -He continues to have chest discomfort which sounds to be more with activity and improves with rest. There is somewhat of a language barrier and him describing his symptoms, however he reports that his chest pain has been limiting to his normal activities. He can do a flight of stairs without chest pain. Unclear if this is truly anginal. -Continue to remain on aspirin lifelong. He is on atorvastatin 80 mg, however is taking it every other day due to reports of constipation. His goal LDL is <70 and he will be having a repeat lipid panel drawn in the near future. Blood pressure is well controlled in the office today, however he was taken off of lisinopril due to cough. I will START losartan 25 mg daily for blood pressure control as well as renal protection for his DM. Renal function is stable. -I will also discuss his case with Dr. Mai to see if a cardiac catheterization is appropriate to the patient. Continue to work on optimization of cardiac risk factors, including diet and exercise. A1c today at endocrine office was 7. Assessment & Plan (09/10/2017 10:32 AM EDT): His chest pain is somewhat atypical and his normal nuclear stress test was reassuring. His abdominal CT was notable for coronary calcium. He has diabetes with which is a coronary artery disease equivalent and has significant coronary calcium. Again his symptoms are not typical and I think I would medically manage him for coronary artery disease and try to optimize his cardiac risk factors. If his chest pain starts to bother him more and we think it is more consistent with angina I would consider a diagnostic cardiac catheterization. He should remain on aspirin lifelong we'll optimize his cardiac risk factors. I talked about diet and exercise as well. Night sweats 08/16/2017 Erectile dysfunction following radiation therapy 07/13/2017 Chest pain 06/11/2017 Assessment & Plan (08/27/2021 9:44 AM EDT): He had chest pain in 2018. Around that time, he had a catheterization which showed no significant CAD. He does have a strong family history of coronary artery disease and he has multiple risk factors. Given the patient's recent reports of exertional chest discomfort, I have suggested that he have a stress test to reevaluate for coronary artery disease. I will follow-up with him after the test has been completed. Assessment & Plan (10/17/2017 1:33 PM EDT): Long-standing intermittent chest pain over the past 6 months or so. This has gotten better over time and has not recently been bothering him Strong family history of early coronary disease as well as significant risk factors of diabetes hypertension hyperlipidemia, under the care of [facility]. Nuclear stress test recently negative, saw Dr. Carballo inpatient, No evidence of ACS, no chest pain during hospital stay Assessment & Plan (07/12/2017 3:49 PM EST): Patient with intermittent episodes of chest pain over the past few weeks. His discomfort has some atypical but some typical features. He just had a negative nuclear stress test. I think part of this is due to reflux. Would consider increasing his omeprazole. We'll see him back in a few months. If his symptoms worsen would consider cardiac catheterization to rule out coronary disease. Assessment & Plan (06/21/2017 11:59 AM EST): The patient has been having recurrent chest pain worsening over the past month and a half. His symptoms are now associated with shortness of breath. He does have risk factors for coronary disease including hypertension, hyperlipidemia, diabetes, as well as family history of CAD. His symptoms have some atypical and some typical features. Because of his risk factors I am going to arrange for a nuclear stress test to be done. I will see him back thereafter in follow-up. Assessment & Plan (06/12/2017 10:41 AM EST): Non-exertional pain, this was reproducible on palpation and left-sided, initially started 5 days ago and has been persistent. At times radiates to the arm and back on the left side. No recent immobility. No persistent dyspnea . During the episodes of chest pain he says he feels like something is squeezing him. No tachycardia Significant risk factors for CAD including family history diabetes hypertension hyperlipidemia. Pain-free overnight, negative cardiac enzymes. Appreciate cardiology consultation, it is noted that a nuclear stress test last year was negative. This was done after similar symptoms occurred. Dr. Hair felt that the patient could likely be discharged if troponins were negative, Type 2 diabetes mellitus wit h microalbuminuria, without long-term current use of insulin 04/13/2017 Assessment & Plan (10/10/2024 2:17 PM EDT): Reviewed CGM data with Christiano, this indicates dramatic rise in blood sugars after 12pm, this is generally the main prandial rise most days Continues on basal insulin We discussed taking NPH to match up with prednisone dosing, though this does not always seem to be a pattern of a rise, occ dropping before lunch, because of this, recommended prandial insulin at lunch to help with higher carb meal, Christiano is agreeable to start this We discussed taking Admelog 4 units with lunch, holding if not eating or eating low carb lunch Encouraged to continue efforts at healthy eating Christiano will return in 6 weeks with me, encouraged to reach out with any questions or concerns before this Assessment & Plan (10/03/2024 5:17 PM EDT): Microalbuminuria, most recent GFR in reassuring range SGLT2i therapy will continue to support renal health, With diagnosis of neuroendocrine tumor of the rectum, there is a potential contraindication for GLP1 given 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 Caballero to discuss safety with GLP1ra On basal insulin now, fastings are elevated, we discussed increasing dose to 27 units Revisited CGM today, Christiano is not interested in personal CGM, but is okay with CGM pro today, this was placed Encouraged to continue efforts at healthy eating Christiano will return in 1 week with me, encouraged to reach out with any questions or concerns before this Assessment & Plan (04/17/2024 10:51 AM EST): Microalbuminuria, most recent GFR in reassuring range SGLT2i therapy will continue to support renal health, With diagnosis of neuroendocrine tumor of the rectum, there is a potential contraindication for GLP1 given 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 GLP1 therapy On basal insulin now, this was recently increased by primary care and fastings have been in improved range Revisited CGM today, Christiano is not interested in personal CGM, but would reconsider CGM pro next visit if A1c remains elevated or worsens Encouraged to continue efforts at healthy eating Christiano will return in 3 months with me, encouraged to reach out with any questions or concerns before this Assessment & Plan (01/12/2024 9:56 AM EDT): Microalbuminuria, most recent GFR in reassuring range SGLT2i therapy will continue to support renal health, With diagnosis of neuroendocrine tumor of the rectum, there is a potential contraindication for GLP1 given 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 GLP1 therapy On basal insulin now, has been alternating dose based on morning sugars, we discussed importance of one consistent dose to reduce variation, encourage increasing to 18 units daily Symptoms concerning for hypoglycemia do not seem to occur when blood sugar is low so I feel as though this is unrelated to blood sugars Discussed personal CGM today, Christiano declines and wishes to continue monitoring fingersticks which is completely reasonable Encouraged to continue efforts at healthy eating Encouraged to return to activity when tolerated and when cleared to do so Christiano will return in 3 months with me, encouraged to reach out with any questions or concerns before this Assessment & Plan (08/10/2023 12:47 PM EDT): Microalbuminuria, most recent GFR in reassuring range SGLT2i therapy would support renal health, we discussed switching to this instead of remaining on GLP1ra therapy since availability for this has been limited, also given recent diagnosis of neuroendocrine tumor of the rectum, there is a potential contraindication given 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 GLP1 therapy Recently started SGLT2i therapy, follow up labs reassuring, Christiano is remaining well hydrated but noticing increased urination and is mostly bothered by nocturnal urinary frequency, we discussed trying to avoid drinking fluids close to bed, trying to avoid fluids a couple hours before bed Christiano would like to see better glycemic control, we discussed increasing dosage and he is willing, we did discuss this may lead to more urination, he would still like to move forward with dose increase Current regimen maintains hypoglycemia risk in low range Encouraged to continue efforts at healthy eating Encouraged to continue being active per his current routine Christiano will return in 2 months to meet with Jammie Andres and in 5 months with me, Christiano is encouraged to reach out with any questions or concerns before this Assessment & Plan (07/07/2023 6:44 PM EST): Microalbuminuria, most recent GFR in reassuring range SGLT2i therapy would support renal health, we discussed switching to this instead of remaining on GLP1ra therapy since availability for this has been limited, also given recent diagnosis of neuroendocrine tumor of the rectum, there is a potential contraindication given 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 GLP1 therapy Discussed SGLT2i therapy at length today, action, timing, dosing, side effects, special considerations including importance of staying well hydrated, advised that this will also offer some renal protection, advised Christiano to have labs checked in 3-4 weeks after starting SGLT2i therapy A1c is stable in very good range Current regimen maintains hypoglycemia risk in low range Encouraged to continue efforts at healthy eating Encouraged to continue being active per his current routine We will follow up in 4 weeks for medication start follow up, Christiano is encouraged to reach out with any questions or concerns before this Assessment & Plan (04/24/2022 2:34 PM EST): Microalbuminuria, most recent GFR in reassuring range SGLT2i therapy would support renal health, we discussed that GLP1ra therapy is not harmful to renal health and he is doing quite well on this Improved glucose control is helpful in reducing progression of diabetes related complicationsTolerating trulicity well, this has been working well as monotherapy A1c is stable in excellent range Current regimen maintains hypoglycemia risk in low range Encouraged to continue efforts at healthy eating Encouraged to continue being active per his current routine Assessment & Plan (12/12/2021 1:22 PM EDT): Tolerating trulicity well, this has been working well as monotherapy Christiano would have increased benefit from SGLT2i therapy as this in combination with GLP1ra would provide enhanced CV benefits A1c is stable in excellent range Current regimen maintains hypoglycemia risk in low range Encouraged to continue efforts at healthy eating Encouraged to continue being active per his current routine Assessment & Plan (01/29/2020 9:45 AM EDT): Tolerating current antihyperglycemic medications well A1c is much improved Current medications maintain hypoglycemia risk in low range Encouraged to continue efforts at healthy eating Encouraged to try to be active more regularly Assessment & Plan (10/02/2019 4:48 PM EDT): Continues to do well with healthy lifestyle however blood sugars are less well controlled Tolerating Trulicity and SGLT2i well, unsure if SGLT2i is helping his blood sugar control though this is certainly providing cardiovascular benefit We discussed a repeat CGM trial soon to compare control now vs prior to start of SGLT2i A1c ordered to have done in early October Encouraged to call with any questions or concerns Assessment & Plan (06/16/2019 3:01 PM EST): Continues to do well with healthy lifestyle however blood sugars are less well controlled Tolerating Trulicity well, agreeable to start of SGLT2i for added benefit Encouraged to call with any questions or concerns Assessment & Plan (10/06/2018 9:58 AM EDT): Continues to do well with healthy lifestyle, we discussed diet today, may benefit from another visit with our RD Tolerating Trulicity well Ankle pain may be the result of poor foot support, we discussed supportive insoles but should also be evaluated by podiatry for diabetic shoes Needs eye exam, reports he is schedule this today Encouraged to call with any questions or concerns Assessment & Plan (04/05/2018 10:29 AM EST): Excellent response to Trulicity Doing very well with lifestyle and diabetes self management Advised to stay active during the winter months Encouraged to call with any questions or concerns Assessment & Plan (12/09/2017 8:50 PM EDT): Doing well on GLP1 RA weekly, A1c improved 0.5% Blood sugar data indicates overall stable control, he will trial higher dosage Trulicity which may further optimize blood sugars We discussed fluctuations in blood sugars that may be related to emotional and/or physical stressors, often these lead to high blood sugars but in some may actually cause low blood sugars, advised to take care in these situations and monitor blood sugar as needed Encouraged to call with any questions or concerns Malignant neoplasm of prostate 04/13/2017 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 Servando Rodriguez 9 Leuprolide (Eligard/GnRH agonist) Abiraterone (Zytiga) Denosumab (prolia) 05/05 bone scan negative - 06/07 DEXA scan osteopenia - 01/05 Bone Scan New L5 changes - 01/05 PT[facility]CT [facility] multiple small spinal metastases and question of kim involvement - 08/06 bone scan no further progressive changes. Remains with spinal Mets and question of kim involvement. Last Assessment & Plan: Follow as scheduled with Dr. Al urology Sacroiliitis, not elsewhere classified 7 Hyperlipidemia LDL goal <70 03/18/2017 Assessment & Plan (10/03/2024 5:19 PM EDT): LDL near goal, TG elevated On high intensity statin Follows with cardiology Assessment & Plan (04/17/2024 10:56 AM EST): On high intensity statin Follows with cardiology Assessment & Plan (01/12/2024 10:12 AM EDT): Christiano plans to have labwork done tomorrow and would like lipid panel added on On high intensity statin Follows with cardiology Assessment & Plan (08/10/2023 12:48 PM EDT): Christiano plans to have labwork done tomorrow and would like lipid panel added on On high intensity statin Follows with cardiology Assessment & Plan (07/07/2023 6:53 PM EST): Most recent lipid panel reviewed, LDL is slightly above goal and TG elevated, Christiano reports having more recent routine labs at [facility], these can be requested On high intensity statin Follows with cardiology Assessment & Plan (04/24/2022 2:23 PM EST): Most recent lipid panel reviewed, LDL is slightly above goal and TG remains elevated Now on PCSK9i Follows with cardiology Assessment & Plan (12/12/2021 1:20 PM EDT): Most recent lipid panel reviewed, LDL was above goal and TG remains elevated Now on PCSK9i Follows with cardiology Assessment & Plan (08/27/2021 9:45 AM EDT): His most recent LDL was elevated. His previous LDL was well controlled, while on the Repatha. The patient tells me that he has not been taking his Repatha. For some reason, the prescription and he has not been getting it. I have resent the prescription. He tells me that he will pick it up today. I will follow-up with him in a few weeks to make sure that he has received it. We will get a lipid panel in several weeks. Assessment & Plan (01/29/2020 9:41 AM EDT): Most recent LDL was above goal and TG remains elevated Taking high intensity statin as well as zetia Encouraged to continue efforts at healthy eating Assessment & Plan (10/02/2019 4:43 PM EDT): Now on Zetia in addition to high intensity statin therapy Has lipid panel ordered by PCP Most recent lipid panel result on file indicated very high TG level Goal LDL is <70 Assessment & Plan (01/10/2019 2:16 PM EDT): Most recent LDL from last year was 111, goal LDL is less than 70 mg deciliter. He remains on atorvastatin 80 mg daily. I have placed an order for repeat lipid panel to be drawn. If his LDL remains high he may benefit from addition of Zetia. Assessment & Plan (10/06/2018 9:54 AM EDT): Most recent LDL was 111, goal <70 Continues on high intensity statin therapy May benefit from addition of zetia, I will defer this to Dr. Lang/cardiology Encouraged to continue walking Assessment & Plan (04/05/2018 5:34 PM EST): -He continues on atorvastatin 80 mg, however indicates that he is taking this every other day since he feels constipated with it. His most recent LDL was 93 in November, and will be having a repeat lipid panel completed as ordered by his differential specialist. -Goal LDL <70 due to DM and CAD -He is also encouraged to exercise as much as possible, however he can be limited by chest discomfort. Heart healthy diet was also discussed. Assessment & Plan (04/05/2018 10:34 AM EST): Continues on high intensity statin therapy Goal LDL is <70 due to DM and CAD, most recent LDL November Has routine lipid panel ordered Assessment & Plan (12/09/2017 8:46 PM EDT): On high intensity statin therapy Most recent LDL much improved but remains above goal in patient with CAD and DM Assessment & Plan (10/14/2017 3:52 PM EDT): Continue statin Assessment & Plan (09/10/2017 10:31 AM EDT): He is appropriately on atorvastatin 80 mg daily. I would continue this. Assessment & Plan (07/16/2017 12:34 PM EST): Most recent lipid profile reviewed, LDL 147 On high dose statin Goal LDL <70 per cardio May need addition of zetia if atorva 80 proves ineffective Assessment & Plan (07/12/2017 3:50 PM EST): Continue atorvastatin 80 mg daily. LDL goal with history of diabetes should be less than 70 mg/dL. Assessment & Plan (06/21/2017 11:58 AM EST): LDL goal less than 70 continue Lipitor 80 mg daily. Assessment & Plan (06/12/2017 9:04 AM EST): Continue statin , LDL still not at goal, 147, will need follow-up with cardiology Assessment & Plan (03/18/2017 2:09 PM EDT): Most recent lipid results reviewed from October, continue statin therapy Hypertension 03/18/2017 Assessment & Plan (10/03/2024 4:59 PM EDT): Blood pressure is in good control on current CCB regimen Has not tolerated ACEi or ARB in the past SGLT2i likely offering modest BP benefit Assessment & Plan (04/17/2024 10:57 AM EST): Blood pressure is in good control on current CCB regimen Has not tolerated ACEi or ARB in the past SGLT2i likely offering modest BP benefit Assessment & Plan (01/12/2024 9:57 AM EDT): Blood pressure is in good control on current CCB regimen Has not tolerated ACEi or ARB in the past SGLT2i likely offering modest BP benefit Assessment & Plan (08/10/2023 12:47 PM EDT): Blood pressure is in good control on current CCB regimen Has not tolerated ACEi or ARB in the past SGLT2i likely offering modest BP benefit Assessment & Plan (07/07/2023 11:07 AM EST): Blood pressure is in good control on current CCB regimen Has not tolerated ACEi or ARB in the past Assessment & Plan (04/24/2022 2:22 PM EST): Blood pressure has been in good control in recent past on current CCB regimen Has not tolerated ACEi or ARB in the past Assessment & Plan (12/12/2021 1:26 PM EDT): Blood pressure has been in good control in recent past on current CCB regimen Has not tolerated ACEi or ARB in the past Assessment & Plan (08/27/2021 9:44 AM EDT): Blood pressure in the office today is reasonably controlled. I suggested that he continue with his current medications. Assessment & Plan (01/29/2020 9:51 AM EDT): Blood pressure has been in reasonable control on current regimen Has not tolerated ACEi or ARB in the past SGLT2i therapy may also help with blood pressure management Assessment & Plan (10/02/2019 4:46 PM EDT): Blood pressure has been in reasonable control on current regimen Has not tolerated ACEi or ARB in the past Assessment & Plan (01/10/2019 2:14 PM EDT): Blood pressure well controlled the office today. He recently had his losartan stopped due to cough and started on amlodipine. He seems to be tolerating this well. No ankle edema. No medication changes at this time. Assessment & Plan (10/06/2018 9:56 AM EDT): Blood pressure is in reasonable control on current regimen Per recent cardiology visit started on ARB therapy though Christiano cannot confirm his medications today Assessment & Plan (04/05/2018 10:33 AM EST): Continues with good blood pressure control No longer taking ACEi per Dr. Lang's last note Assessment & Plan (12/09/2017 8:46 PM EDT): Well controlled on current regimen which includes ACEi Assessment & Plan (10/14/2017 4:37 PM EDT): Continue lisinopril and amlodipine Assessment & Plan (09/10/2017 10:32 AM EDT): His blood pressure is mildly elevated today. By guidelines his systolics be less than 1:30. I'm a double up his lisinopril from 10-20 mg daily. If his blood pressure remains high we can add back the amlodipine. He has not been taking this. Assessment & Plan (07/16/2017 12:35 PM EST): Blood pressure is excellent today Continues on ACEI Assessment & Plan (07/12/2017 3:49 PM EST): Borderline elevated today but is typically okay at home. Should continue to monitor and can consider increasing his amlodipine if needed. Assessment & Plan (06/21/2017 11:58 AM EST): Blood pressure is currently very well-controlled. The patient does check his blood pressure at home and will continue to monitor. He should continue his current medications. Assessment & Plan (06/11/2017 1:56 PM EST): Continue home meds, lisinopril and Norvasc. Creatinine stable. Normotensive at present Assessment & Plan (03/18/2017 2:09 PM EDT): Blood pressure under excellent control, appropriately treated with ACEI as well as CCB, continue current therapy Type 2 diabetes, controlled, with neuropathy 06/2016 Overview (10/06/2018): DIABETES HISTORY Diagnosis - type 2 diabetes, dx 2009 Treatment - Metformin caused GI upset, Januvia not effective; started GLP1ra therapy in early 2017 Assessment & Plan (10/10/2024 2:11 PM EDT): Elevated blood sugars Encouraged to continue efforts at healthy eating and staying active as tolerated Up to date on foot care Assessment & Plan (10/03/2024 5:18 PM EDT): Elevated blood sugars Encouraged to continue efforts at healthy eating and staying active as tolerated Up to date on foot care Assessment & Plan (04/17/2024 10:52 AM EST): Reported glucose information is reasonable, fastings are meeting goal Encouraged to continue efforts at healthy eating and staying active as tolerated Up to date on foot care Assessment & Plan (01/12/2024 9:57 AM EDT): Glucose data is reasonable, fastings are just above target so discussed increase in basal insulin Encouraged to continue efforts at healthy eating and staying active as tolerated Up to date on foot care Assessment & Plan (08/10/2023 12:32 PM EDT): Glucose data as reported by Christiano indicates slightly higher control, he is reassured that an increase in SGLT2i dosage should lead to better control Encouraged to continue efforts at healthy eating and staying active as tolerated Assessment & Plan (07/07/2023 3:03 PM EST): Glucose data as reported by Christiano indicates stable early day patterns in good range, he is reassured that his reported consistent readings <130 are in very good control Encouraged to continue efforts at healthy eating and staying active as tolerated Assessment & Plan (04/24/2022 2:34 PM EST): Glucose data as reported by Christiano indicates stable early day patterns in good range, he is reassured that his reported consistent readings <150 are in good control although these are modestly higher than in the past Encouraged to continue efforts at healthy eating and staying consistently active We will follow up in 6 months, Christiano is encouraged to contact me with any questions Assessment & Plan (12/12/2021 1:24 PM EDT): Glucose data as reported by Christiano indicates stable early day patterns in good range Microalbuminuria, most recent GFR in reassuring range SGLT2i therapy would support renal health, we discussed that GLP1ra therapy is not harmful to renal health Improved glucose control is helpful in reducing progression of diabetes related complications Encouraged to continue efforts at healthy eating and staying consistently active We will follow up in 4 months, Christiano is encouraged to contact me with any questions Assessment & Plan (01/29/2020 9:48 AM EDT): Glucose data indicates stable early day patterns Microalbuminuria, GFR in reassuring range There is evidence to suggest that SGLT2i therapy helps preserve renal function and reduce progression of diabetic renal disease Improved glucose control is also helpful in reducing progression of diabetes related complications Encouraged to continue efforts at healthy eating and to try to stay more consistently active Assessment & Plan (10/02/2019 4:59 PM EDT): Recent jump in urine microalbumin, will have this repeated; this may be helped by medicating with SGLT2i therapy since this has been shown to have cariorenal protection and reduce proteinuria Will have urine microalbumin rechecked, order placed Given Christiano's CAD and diabetic nephropathy, his current antighyperglycemia medication regimen should provide protection and risk reduction We discussed assessing overall control and any necessary adjustments to therapy with a CGM pro Encouraged to continue healthy dietary changes We discussed the blood sugar related/insulin sensitivity improvements related to Porfirios recent weight loss Would benefit from increased activity Encouraged to contact us with any questions or concerns Assessment & Plan (07/11/2019 1:34 PM EST): Based on CGM interpretation Recommendations: Currently taking Trulicity 1.5mg once weekly and Jardiance 10mg once daily Overall glucose control is reasonable, there is moderate prandial hyperglycemia which may be helped by an increase in Jardiance if Christiano is tolerating this well Ultimately the most impact on prandial blood sugars would come from healthier dietary choices, lower carbohydrate intake, regular exercise Assessment & Plan (06/16/2019 3:05 PM EST): Continue on Trulicity, agreeable to addition of SGLT2i therapy for added blood sugar control We discussed the Freestyle Candy pro which would help us to evaluate glucose patterns more effectively, Christiano is agreeable to placement of this today Microalbuminuria with normal GFR, SGLT2i therapy may further help with renal protection, continues on ARB Blood pressure is under reasonable control, goal is <130/80 given CAD Encouraged to call with any questions or concerns, we will contact Christiano with results of CGM trial and recommendations with respect to therapy based on this CGM Trial Type of Diabetes: Diabetes mellitus Type 2 Procedures: Glucose Monitoring: Type of Sensor: Candy Pro, Instruction: Patient Instructed on:, Calibrations, When to test BS, Troubleshooting, What to expect with the sensor, Patient instructed to remove sensor if redness, pain or bleeding occurs. . Insertion Site Selected: left arm Site Prep: Insertion site wiped with alcohol. Insertion: completed, area looks good, no redness, no bleeding. Plan: Procedure Codes: 82946 Glucose monitoring, cont Assessment & Plan (10/06/2018 9:56 AM EDT): Microalbuminuria with normal GFR Blood pressure is under reasonable control though goal is <130/80 given CAD Now on ARB per cardiology Doing well on Trulicity, we discussed general dietary recommendations particularly to watch portions of fruit and combine this with healthy proteins/fats Assessment & Plan (04/05/2018 5:35 PM EST): -His most recent A1c was 7, indicating relatively good control. He is currently on Trulicity. Blood pressure controlled in the office, however will add losartan 25 mg daily since lisinopril was discontinued by PCP due to cough. His renal function continues to be monitored by endocrine. Assessment & Plan (04/05/2018 10:28 AM EST): Doing very well on trulicity monotherapy, evidence suggests renoprotective benefits from trulicity Blood pressure is very well controlled, most recent GFR 69 Assessment & Plan (10/17/2017 1:34 PM EDT): Continue home regimen. Assessment & Plan (07/16/2017 12:37 PM EST): Unable to tolerate Metformin, Januvia appears ineffective Discussed GLP-1 RA therapy, pt agreeable and given instruction on once weekly Ozempic, we discussed common side effects Will start Ozempic 0.25mg once weekly for four weeks then increase to 0.5mg once weekly May benefit from weight loss in addition to improved glycemic control Has upcoming appt with our perioperative educator staff, will return to meet with me in 2 months Assessment & Plan (06/12/2017 9:05 AM EST): Restart Januvia and metformin no current indication for cardiac catheter Assessment & Plan (03/18/2017 2:07 PM EDT): Plan to optimize Januvia to 100mg once daily Overall blood sugar control is quite good, if control becomes suboptimal then we will consider adding another agent Advised visit with podiatry for routine foot and nail care, list of local providers given to patient Christiano is encouraged to continue his lifestyle modifications and he will return to meet with Lupe Wheatley for ongoing diabetes education Resolved Problems Problem Noted Date Diagnosed Date Resolved Date Cardiac mass 10/18/2017 11/18/2017 Acute respiratory distress 10/14/2017 0 10/18/2017 Assessment & Plan (10/17/2017 1:32 PM EDT): The patient's dyspnea has markedly improved during the hospitalization. Improved with azithromycin as well as steroid and nebulizer treatments. I will send him home with an inhaler as well as a short burst of steroid. He is asked to follow up with pulmonary for PFTs and evaluation of finding of tracheobronchomalacia, we are arranging for follow-up. He will follow up with [place] cardiology next week for echocardiogram findings Drug induced insomnia 06/14/20172020 Encounters Date Type Department Care Team Description [facility] [address] [address] Ev Oconnor, police investigator Refill 12/11/2024 2:00 PM EDT Infusion [facility] at [address] [address] Travis Caballero, Itzel Wren, Kendra Peoples Primary cancer of bone with metastasis to other site (Primary Dx); Malignant neoplasm of prostate 12/11/2024 1:13 PM EDT - 12/11/2024 11:59 PM EDT Hospital Encounter [address] [address] Travis Caballero DO Discharge Disposition: Home or Self Care 12/11/2024 Orders Only [facility] at [address] [address] Sherri Ballard, LUIS A 11/29/2024 8:00 AM EDT Office Visit [facility] at [address] [address] Travis Caballero, Christopher Hernandez Primary cancer of bone with metastasis to other site (Primary Dx) 11/29/2024 Telephone [facility] at [address] [address] Travis Caballero DO Initiate Treatment 11/22/2024 Refill [facility] at [address] [address] Ev Oconnor, police investigator Refill 11/20/2024 2:03 PM EDT - 11/20/2024 11:59 PM EDT Hospital Encounter [facility], [address] [address] Travis Caballero DO Miranda-Leon, Wisinley Discharge Disposition: Home or Self Care 11/09/2024 2:30 PM EDT Office Visit [facility] at [address] [address] Travis Caballero, Jeimy Reynoldsa R Midline low back pain with bilateral sciatica, unspecified chronicity (Primary Dx) 11/09/2024 1:08 PM EDT - 11/09/2024 11:59 PM EDT Hospital Encounter [facility] [address] [place] [id number] Travis Caballero DO Discharge Disposition: Home or Self Care 11/09/2024 Procedure Pass [facility], Mri [address] [address] 11/07/2024 10:36 AM EDT - 11/07/2024 2:12 PM EDT Emergency [facility] [address] [place] [id number] Discharge Disposition: Home or Self Care 11/07/2024 Procedure Pass [facility], Ct Scan - [address] [address] 10/26/2024 Documentation [facility] [address] [place] [id number] Alashawn, Abeer 10/26/2024 Documentation [facility] [address] [place] [id number] Alabed, Abeer 10/25/2024 Refill [facility] at [address] [address] Ev Oconnor RN Medication Refill 10/14/2024 1:10 PM EDT - 10/14/2024 2:54 PM EDT Emergency [facility] [address] [place] [address] Discharge Disposition: Home or Self Care 10/12/2024 Telephone [facility] [address] [place] [address] [place] [address] Honey Moyer MA Clinical Notes 10/11/2024 Telephone [facility] [address] [place] [address] Honey Moyer MA 10/10/2024 10:40 AM EDT Office Visit [facility] [address] [place] [address] Katherine Florentino, SACHA Type 2 diabetes mellitus with microalbuminuria, without long-term current use of insulin (Primary Dx); Type 2 diabetes, controlled, with neuropathy 10/03/2024 11:20 AM EDT Office Visit [facility] [address] [place] [address] Katherine Florentino CNP Verea, Christopher Type 2 diabetes mellitus with microalbuminuria, without long-term current use of insulin (Primary Dx); Type 2 diabetes, controlled, with neuropathy; Primary hypertension; Hyperlipidemia LDL goal <70 09/25/2024 Orders Only [facility] at [facility] [address] [place] [address] Priti Armenta FNP Malignant neoplasm of prostate (Primary Dx) from Last 3 Months Immunizations Immunization Administration Dates Next Due COVID-19 (Pre-03/08) Moderna Vaccine, mRNA, PF 09/06/2020,08/09/2020 COVID-19 (Pre-03/08) Pfizer Vaccine, Bivalent 12+ 03/31/2022 COVID-19 (Pre-03/08) Pfizer Vaccine, mRNA, PF 04/12/2023,03/24/2021 COVID-19 (Pre-03/08) Pfizer Vaccine, mRNA, pat-sucrose, PF 10/14/2021 Influenza High-Dose Quadriva lent Preservative Free IM 04/12/2023,02/06/2022,03/10/2021,02/21 Influenza High-Dose Trivalen t Preservative Free IM 02/25/2024,02/21/2019,03/04/2018,03/12 Pneumococcal conjugate PCV13 06/12/2017 Pneumococcal polysaccharide PPSV23 01/06/2021 Tdap 03/10/2021 Zoster recombinant 03/10/2021,01/06/2021 Family History Medical History Relation Comments Bone cancer Father former smoker Diabetes mellitus Half-Sister Heart attack Half-Sister non smoker (padilla rnal half sister) Diabetes mellitus Mother Prostate cancer Paternal Grandfather Diabetes Sibling Hypertension Sibling Diabetes mellitus Sister 1 Lung cancer Sister 2 non smoker Colon cancer Neg Hx Relation Status Comments Father (Age 73) cancer, unknow n type Half-Sister Mother (Age 80's) of comp lications of diabetes Paternal Grandfather Sibling 9 siblings Sister 1 complications of diabetes Sister 2 Social History Tobacco Use Types Packs/Day Years Used Date Smoking Tobacco: Never Smokeless Tobacco: Never Tobacco Cessation:Counseling Given: Not Answered Alcohol Use Standard Drinks/Week Comments Not Currently 0 (1 standard drink = 0.6 oz pur e alcohol) quit 2017 Home Health Assessment: Transportation Answer Date Recorded Lack of Transportation (Medical) No 07/20/2024 Lack of Transportation (Non-Medical) No 07/20/2024 Patient Unable or Declines to Respond No 07/20/2024 Education Answer Date Recorded Are you interested in more education? Not on himanshu e 09/10/2022 Are you concerned about learning? Not on file 09/10/2022 No 09/10/2022 No 09/10/2022 Food Answer Date Recorded Within the past 6 months we worried whether our food would run out before we got money to buy more. Never True 11/07/2024 Within the past 6 months the food we bought just didn't last and we didn't have enough money to get more. Never True Residential Stability Answer Date Recor ded What is your housing situation today? I have polly sing 11/07/2024 How many times have you move d in the past 12 months? Zero (I did not move) 11/07/2024 Paying for Meds Answer Date Recorded Do you have trouble paying for medicines? No 11/07/2024 Paying Utility Bills Answer Date Record ed Do you have trouble paying your heating or elect ricity bill? No 11/07/2024 Transportation Answer Date Recorded Has the lack of transportati on kept you from medical appointments or from getting medications? No 11/07/2024 Digital Access Answer Date Recorded No 11/07/2024 Yes 11/07/2024 Do you have reliable internet access at home? Ye s 11/07/2024 Do you have a device (e.g., phone, tablet, computer) with a working camera? Yes 11/07/2024 Intimate Partner Violence Answer Date R ecorded Are you denied basic needs s uch as food, clothing, or medical care? No 11/07/2024 In the past 12 months have y ou been in a relationship with a person who hurts, threatens, or tries to control you? No 11/07/2024 Are you denied basic needs s uch as food, clothing, or medical care? No 11/07/2024 In the past 12 months have y ou been in a relationship with a person who hurts, threatens, or tries to control you? No 11/07/2024 Sex and Gender Information Value Date Recorded Sex Assigned at Male 06/13/2017 1:36 PM EST Legal Sex Male 10:01 PM EDT Gender Identity Male 06/13/2017 1:36 PM EST Sexual Orientation Straight 06/13/2017 1: 36 PM EST Last Filed Vital Signs Vital Sign Reading Time Taken Comments Blood Pressure 132/77 12/11/2024 3:00 PM EDT Pulse 63 12/11/2024 2:36 PM EDT Temperature 36.9 C (98.4 F) 12/11/2024 2:36 PM EDT Respiratory Rate 17 12/11/2024 3:00 PM EDT Oxygen Saturation 98% 12/11/2024 3:00 PM EDT Inhaled Oxygen Concentration - - Weight 91.3 kg (201 lb 4.8 oz) 11/29/2024 7:55 A M EDT Height 171.4 cm (5' 7.48 ) 11/29/2024 7:55 AM ED T Body Mass Index 31.08 11/29/2024 7:55 AM EDT Plan of Treatment Upcoming Encounters Date Type Department Care Team (Late st Contact Info) Description 01/31/2025 8:00 AM EDT Appointment [facility] Laboratory [address] [place] [id number] Travis Caballero, DO [address] [place] [id number] [email or web address] 01/31/2025 9:00 AM EDT Office Visit [facility] [address] [place] [address] Travis Caballero, DO [address] [place] [id number] [email or web address] Health Maintenance Due Date Last Done Comments EVAN 09/13/1995 FIT TEST 09/13/1995 FOBT 09/13/1995 VIRTUAL COLONOSCOPY 09/13/1995 RSV VACCINE (1 - Risk 60-74 years 1-dose series) 2010 DEPRESSION SCREENING 04/15/2022 04/15/2021 COVID-19 VACCINE ( season) 2024 04/12/2023, 04/12/2023, 03/31/2022, Additional history exists DIABETIC EYE EXAM 03/19/2024 03/19/2023, 02/13/2021 URINE MICROALBUMIN/CREATININE RATIO 08/10/2024 08/11/2023, 02/15/2023, 01/07/2023, Additional history exists HEMOGLOBIN A1C 02/13/2025 11/13/2024, 09/15, 07/14/2024, Additional history exists SIGMOIDOSCOPY 04/22/2025 04/22/2020 BLOOD PRESSURE 06/13/2025 12/11/2024 Adult Td,Tdap Booster 03/10/2031 03/10/2021 COLONOSCOPY 10/20/2032 10/20/2022, 05/18, 02/21/2020 COLORECTAL CANCER SCREENING 10/20/2032 HEPATITIS C SCREENING Completed 08/22/2020, 021 PNEUMOCOCCAL VACCINES (50+ years) Completed 01/06/2021, 06/12/2017 ZOSTER VACCINES Completed 03/10/2021, 01/06/2021 SMOKING STATUS SCREENING (Once After 26 Yrs) Completed 10/14/2024 HEPATITIS A VACCINES Aged Out No long er eligible based on patient's age to complete this topic HIB VACCINES Aged Out No longer eligi ble based on patient's age to complete this topic MENINGOCOCCAL VACCINES (ACWY) Aged Out No longer eligible based on patient's age to complete this topic MENINGOCOCCAL VACCINES (B) Aged Out N o longer eligible based on patient's age to complete this topic Medical Devices Implanted Type Area Fiscal Analyst Device Identifier Shelf Expiration Date Model / Serial / Lot Mesh Synthetic [id number] Abdominal Collagen Coating Rectangle Polyester Parietex W/Out Fixation Suture - [id number] Implanted:Qty: 1 on 03/20/2024 by Obed Barnes MD at [facility] STANDARD N/A: Abdomen [employer] [facility] [id number] 02/14/2028 [id number] / / [id number] Description:The implant type , laterality (when applicable), size, and expiration date have been visually and verbally confirmed by the Surgeon, Circulating RN and Scrub Personnel. Procedures Procedure Name Priority Date/Time Associated Diagnosis Comments PSA DIAGNOSTIC (MONITORING) Routine 12/11/2024 1:13 PM EDT Malignant neoplasm of prostate COMPREHENSIVE METABOLIC PANEL Routine 12/11/2024 1:13 PM EDT Malignant neoplasm of prostate CBC AND DIFFERENTIAL Routine 12/11/2024 1:13 PM EDT Malignant neoplasm of prostate MRI LUMBAR SPINE (NEURO) WITH AND WITHOUT CONTRAST Routine 11/20/2024 3:49 PM EDT Midline low back pain with bilateral sciatica, unspecified chronicity PSA DIAGNOSTIC (MONITORING) Routine 11/09/2024 1:08 PM EDT Malignant neoplasm of prostate COMPREHENSIVE METABOLIC PANEL Routine 11/09/2024 1:08 PM EDT Malignant neoplasm of prostate CBC AND DIFFERENTIAL Routine 11/09/2024 1:08 PM EDT Malignant neoplasm of prostate CT HEAD WITHOUT CONTRAST Routine 11/07/2024 1:03 PM EDT POCT HEMOGLOBIN A1C Routine 10/03/2024 1 1:29 AM EDT Type 2 diabetes, controlled, with neuropathy MICROALBUMIN/CREATININ E RATIO, RANDOM URINE Routine 08/11/2023 7:50 AM EDT Type 2 diabetes mellitus with microalbuminuria, without long-term current use of insulin ENDOSCOPY, COLON 10/20/2022 7:43 AM EDT DIABETES EYE EXAM FOR RESULT ENTRY ONLY Routine 02/13/2021 HEPATITIS C ANTIBODY, QUALITATIVE Routine 08/22/2020 11:50 AM EDT Encounter for hepatitis C screening test for low risk patient ENDOSCOPY, SIGMOID 04/22/2020 8: 13 AM EST from Last 3 Months or Most Recently Relevant to Health Maintenance Results * (ABNORMAL) Comprehensive metabolic panel (12/11/2024 1:13 PM EDT) Only the most recent of2 resultswithin the time period is included. SODIUM 133 133 - 146 mmol/L [facility] POTASSIUM 4.6 3.3 - 5.1 mmol/L [facility] CHLORIDE 100 96 - 108 mmol/L [facility] CO2 20(L) 21 - 35 mmol/L [facility] BUN 18 6 - 19 mg/dL [facility] CREATININE 1.00 0.5 - 1.5 mg/dL [facility] GLUCOSE 290(H) 70 - 99 mg/dL [facility] ALBUMIN 4.1 3.9 - 4.8 g/dL [facility] TOTAL PROTEIN 7.3 6.5 - 8.0 g/dL [facility] CALCIUM 9.8 8.4 - 10.3 mg/dL [facility] ALKALINE PHOSPHATASE 204(H) 39 - 117 U/L [facility] TOTAL BILIRUBIN 0.5 0.0 - 1.2 mg/dL [facility] AST 16 0 - 37 U/L [facility] ALT 14 0 - 40 U/L [facility] GLOBULIN 3.2 1 - 4.8 g/dL [facility] EGFR 79 >59 mL/min/1.7 3m2 [facility] Comment:Estimated glomerular filtration rate calculated using the CKD-EPI refit equation. ANION GAP 18 10 - 20 mmol/L [facility] Blood 12/11/2024 1:13 PM EDT 12/11/2024 1:30 PM EDT us Travis Caballero DO LAB BLOOD ORDERABLES Final Result [address] [address] * (ABNORMAL) PSA diagnostic (monitoring) (12/11/2024 1:13 PM EDT) Only the most recent of2 resultswithin the time period is included. PSA 5.20(H) 0 - 4.00 ng/mL [facility] Comment: Test Methodology Isael [id number] Patient results determined by assays using different manufacturers or methods may not be comparable. Blood 12/11/2024 1:13 PM EDT 12/11/2024 1:30 PM EDT us Robles W Federico DO LAB BLOOD ORDERABLES Final Result [address] [address] * (ABNORMAL) CBC and differential (12/11/2024 1:13 PM EDT) Only the most recent of2 resultswithin the time period is included. WBC 9.65 4.00 - 11.00 K/uL [facility] RBC 5.06 4.50 - 5.90 M/uL [facility] HGB 12.1(L) 13.5 - 17.5 g/dL [facility] HCT 38.8(L) 41.0 - 53.0 % [facility] PLT 283 150 - 450 K/uL [facility] MCV 76.7(L) 80.0 - 100.0 fL [facility] MCH 23.9(L) 27.0 - 31.0 pg [facility] MCHC 31.2(L) 32.0 - 36.0 g/dL [facility] RDW 15.9(H) 11.5 - 14.5 % [facility] MPV 10.5 8.4 - 12.0 fL [facility] NRBC 0.00 0.00 /100 WBCs [facility] ABSOLUTE NRBC 0.00 0.00 K/uL [facility] DIFF METHOD Auto [facility] NEUTS 71.6 48.0 - 76.0 % [facility] LYMPHS 20.9 18.0 - 41.0 % [facility] MONOS 4.4 4.0 - 11.0 % [facility] EOS 2.1 0.0 - 5.0 % [facility] BASOS 0.8 0.0 - 1.5 % [facility] Granulocytes, immature (%) 0.2 0.0 - 0.9 % [facility] ABSOLUTE NEUTS 6.91 1.92 - 7.60 K/uL [facility] ABSOLUTE LYMPHS 2.02 0.72 - 4.10 K/uL [facility] ABSOLUTE MONOS 0.42 0.16 - 1.10 K/uL [facility] ABSOLUTE EOS 0.20 0.00 - 0.50 K/uL [facility] ABSOLUTE BASOS 0.08 0.00 - 0.15 K/uL [facility] Granulocytes, immature 0.02 0.00 - 0.09 K/uL [facility] Blood 12/11/2024 1:13 PM EDT 12/11/2024 1:30 PM EDT Travis Caballero DO LAB BLOOD ORDERABLES Final Result Performing Organization Address City/State/[facility] Co de Phone Number [address] [address] * MRI LUMBAR SPINE (NEURO) WITH AND WITHOUT CONTRAST (11/20/2024 3:49 PM EDT) Anatomical Region Laterality Modality L-spine Magnetic Resonan ce 11/22/2024 8:46 AM EDT Impressions 11/22/2024 9:11 AM EDT 1. When compared to April 2024, there are new metastatic osseous lesions involving L4 and S2 vertebrae. The dominant lesion is again noted at L5 level now involving near entirety of the L5 vertebral body with greater degree of posterior element involvement. There is surrounding soft tissue thickening and enhancement in the prevertebral, paravertebral, and ventral epidural spaces at L5 level suspicious for extraosseous extension of disease. 2. Degenerative changes and extraosseous involvement of osseous metastases contribute to moderate spinal canal narrowing at L4-S1 levels with suspected impingement of the descending L5 nerve roots bilaterally. 3. There is also severe bilateral foraminal narrowing at L5-S1 level and moderate bilateral foraminal narrowing at L4-L5 level. Narrative 11/22/2024 9:11 AM EDT MRI LUMBAR SPINE (NEURO) WITH AND WITHOUT CONTRAST Referring clinician's provided indication for this examination in Epic: * Low back pain, cancer suspected; include t11 TECHNIQUE: MRI LUMBAR SPINE (NEURO) WITH AND WITHOUT CONTRAST COMPARISON: CT ABDOMEN/PELVIS WITH CONTRAST ; NM PET CT PROSTATE CANCER IMAGING FINDINGS: Alignment and Vertebrae: There is mild straightening of the usual lumbar lordosis. There is minimal retrolisthesis of L5 on S1. No acute compression fracture. Marrow: There are T1 hypointense lesions with mild enhancement involving T11, L2, L4, L5, S1, and S2 vertebrae likely representing metastatic lesions. The lesions centered in the left L4 pedicle and posterior aspect of S2 vertebral body were not seen on the prior exam from April 2024. The dominant lesion is again noted at L5 level now involving near entirety of the L5 vertebral body with greater degree of posterior extension now involving bilateral pedicles and left transverse process. Discs and Endplates: Mild and moderate intervertebral disc height loss and loss of normal T2 disc signal are seen . Conus: The conus terminates at T12 level. No evidence of abnormal signal in the visualized spinal cord. No abnormal enhancement. Soft Tissue: The dominant lesion at L5 level demonstrates surrounding soft tissue thickening and enhancement in the prevertebral, paravertebral, and ventral epidural spaces, suspicious for extra osseous extension of disease. Other Findings: Nonspecific right lateral renal cysts are seen. There is a 5 x 8 mm retroperitoneal lymph node at L2-3 level, which previously demonstrated FDG uptake on the prior PET. Findings by level: T12-L1: No spinal canal or foraminal narrowing. L1-L2: No spinal canal or foraminal narrowing. L2-L3: Diffuse disc bulge is noted. No spinal canal or foraminal narrowing. L3-L4: Diffuse disc bulge and mild bilateral facet arthropathy are seen. No spinal canal or foraminal narrowing. L4-L5: Diffuse disc bulge and moderate bilateral facet arthropathy are seen. There is also ventral epidural soft tissue thickening and enhancement at this level. These contribute to moderate spinal canal narrowing with marked effacement of the subarticular recesses bilaterally resulting in suspected impingement of the descending L5 nerve roots bilaterally. There is also moderate bilateral foraminal narrowing at this level. L5-S1: Diffuse disc bulge and moderate bilateral facet arthropathy are seen with prominent epidural fat. There is also ventral epidural soft tissue thickening and enhancement at this level. These contribute to moderate spinal canal narrowing and severe bilateral foraminal narrowing. Procedure Note Deanna Mayfield MD - 11/22/2024 MRI LUMBAR SPINE (NEURO) WITH AND WITHOUT CONTRAST Referring clinician's provided indication for this examination in Epic: *Low back pain, cancer suspected; include t11 TECHNIQUE: MRI LUMBAR SPINE (NEURO) WITH AND WITHOUT CONTRAST COMPARISON: CT ABDOMEN/PELVIS WITH CONTRAST ; NM PET CTPROSTATE CANCER IMAGING FINDINGS: Alignment and Vertebrae: There is mild straightening of the usual lumbarlordosis. There is minimal retrolisthesis of L5 on S1. No acute compression fracture. Marrow: There are T1 hypointense lesions with mild enhancement [id number], L2, L4, L5, S1, and S2 vertebrae likely representing metastaticlesions. The lesions centered in the left L4 pedicle and posterior aspectof S2 vertebral body were not seen on the prior exam from April 2024.The dominant lesion is again noted at L5 level now involving near entiretyof the L5 vertebral body with greater degree of posterior extension nowinvolving bilateral pedicles and left transverse process. Discs and Endplates: Mild and moderate intervertebral disc height loss andloss of normal T2 disc signal are seen . Conus: The conus terminates at T12 level. No evidence of abnormal signalin the visualized spinal cord. No abnormal enhancement. Soft Tissue: The dominant lesion at L5 level demonstrates surrounding softtissue thickening and enhancement in the prevertebral, paravertebral, andventral epidural spaces, suspicious for extra osseous extension ofdisease. Other Findings: Nonspecific right lateral renal cysts are seen. There is a5 x 8 mm retroperitoneal lymph node at L2-3 level, which previouslydemonstrated FDG uptake on the prior PET. Findings by level: T12-L1: No spinal canal or foraminal narrowing. L1-L2: No spinal canal or foraminal narrowing. L2-L3: Diffuse disc bulge is noted. No spinal canal or foraminalnarrowing. L3-L4: Diffuse disc bulge and mild bilateral facet arthropathy are seen.No spinal canal or foraminal narrowing. L4-L5: Diffuse disc bulge and moderate bilateral facet arthropathy areseen. There is also ventral epidural soft tissue thickening andenhancement at this level. These contribute to moderate spinal canalnarrowing with marked effacement of the subarticular recesses bilaterallyresulting in suspected impingement of the descending L5 nerve rootsbilaterally. There is also moderate bilateral foraminal narrowing at thislevel. L5-S1: Diffuse disc bulge and moderate bilateral facet arthropathy areseen with prominent epidural fat. There is also ventral epidural softtissue thickening and enhancement at this level. These contribute tomoderate spinal canal narrowing and severe bilateral foraminalnarrowing. IMPRESSION: 1. When compared to April 2024, there are new metastatic osseouslesions involving L4 and S2 vertebrae. The dominant lesion is again notedat L5 level now involving near entirety of the L5 vertebral body withgreater degree of posterior element involvement. There is surrounding softtissue thickening and enhancement in the prevertebral, paravertebral, andventral epidural spaces at L5 level suspicious for extraosseous extensionof disease. 2. Degenerative changes and extraosseous involvement of osseousmetastases contribute to moderate spinal canal narrowing at L4-S1 levelswith suspected impingement of the descending L5 nerve roots bilaterally. 3. There is also severe bilateral foraminal narrowing at L5-S1 level andmoderate bilateral foraminal narrowing at L4-L5 level. us Robles W Federico DO IMG MR XSPECIALTY Final Res ult * CT HEAD WITHOUT CONTRAST (11/07/2024 1:03 PM EDT) Anatomical Region Laterality Modality Head Computed Tomogra phy 11/07/2024 1:12 PM EDT Impressions 11/07/2024 1:36 PM EDT 1. No acute intracranial finding. 2. Partially visualized sclerotic lesion in the left mandibular condyle, raising the concern for osseous metastasis, in keeping with patient's known prostate cancer. ATTESTATION: I, Dr. Phil Ceron as teaching physician, have reviewed the images for this case and if necessary edited the report originally created by Michelle Lopez. Narrative 11/07/2024 1:[address] HEAD WITHOUT CONTRAST Referring clinician's provided indication for this examination in [facility]: * Hearing loss, mixed; hearing changes, tinnitus, headaches, CA hx, r/o mass TECHNIQUE: CT of the head was performed without intravenous contrast using tailored dose modulation techniques. Images were reconstructed in the axial, coronal, and sagittal planes. COMPARISON: CT ANGIO HEAD WITH AND WITHOUT CONTRAST, CT ANGIO NECK WITH CO.. ; MRI BRAIN WITH AND WITHOUT CONTRAST FINDINGS: Brain Parenchyma: No midline shift, mass effect, parenchymal hemorrhage, or evidence of acute territorial infarct. Hypodensities in the periventricular white matter, likely a manifestation of chronic small vessel disease. Ventricular System and Extra-Axial Spaces: The ventricles and sulci are prominent. No extra-axial fluid collections. Basilar cisterns are patent. No hydrocephalus. Osseous and Extracranial Structures: No calvarial fracture or significant soft tissue hematoma. No significant paranasal sinus disease. No acute orbital abnormality. Partially visualized lesion of the left mandibular condyle. Procedure Note Phil De Santiago MD - 11/07/2024 CT HEAD WITHOUT CONTRAST Referring clinician's provided indication for this examination in [facility]: *Hearing loss, mixed; hearing changes, tinnitus, headaches, CA hx, r/omass TECHNIQUE: CT of the head was performed without intravenous contrast usingtailored dose modulation techniques. Images were reconstructed in theaxial, coronal, and sagittal planes. COMPARISON: CT ANGIO HEAD WITH AND WITHOUT CONTRAST, CT ANGIO NECK WITHCO.. ; MRI BRAIN WITH AND WITHOUT CONTRAST FINDINGS: Brain Parenchyma: No midline shift, mass effect, parenchymal hemorrhage,or evidence of acute territorial infarct. Hypodensities in theperiventricular white matter, likely a manifestation of chronic smallvessel disease. Ventricular System and Extra-Axial Spaces: The ventricles and sulci areprominent. No extra-axial fluid collections. Basilar cisterns are patent.No hydrocephalus. Osseous and Extracranial Structures: No calvarial fracture or significantsoft tissue hematoma. No significant paranasal sinus disease. No acuteorbital abnormality. Partially visualized lesion of the left mandibularcondyle. IMPRESSION: 1. No acute intracranial finding. 2. Partially visualized sclerotic lesion in the left mandibular condyle,raising the concern for osseous metastasis, in keeping with patient'sknown prostate cancer. ATTESTATION: I, Dr. Phil Ceron as teaching physician, havereviewed the images for this case and if necessary edited the reportoriginally created by Michelle Lopez. Moris Ramirez PA-C IMG CT HEAD/NECK Final Result * (ABNORMAL) POCT Hemoglobin A1c (10/03/2024 11:29 AM EDT) Hemoglobin A1c 9.2(A) 4.2 - 5.6 % [facility] Other 10/03/2024 11:2 9 AM EDT Katherine Florentino CNP POINT OF CARE TEST ORDERABLES Final Result Performing Organization Address [facility] Co de Phone Number [address] * (ABNORMAL) Microalbumin/creatinine ratio, random urine (08/11/2023 7:50 AM EDT) URINE MICROALBUMIN 61.3(H) 0 - 2.3 mg/dL [facility] URINE CREATININE 150 mg/dL [facility] MICROALB/CRE RATIO 408.7(H) 0 - 20 mg/g Cre [facility] Urine (Urine) 08/11/2023 7:5 0 AM EDT 08/11/2023 7:53 AM EDT Katherine Florentino CNP URINE ORDERABLES Final Result Performing Organization Address [facility] [place] [address] * ENDOSCOPY, COLON (10/20/2022 7:43 AM EDT) Narrative Transcriptions Adrian Partida MD - 10/20/2022 7:43 AM EDT [facility] Patient Name: Christiano Randy Attending MD:: ADRIAN PARTIDA MD, Procedure Date: 10/20/2022 7:43 AM Date of : 1950 Age: 72 Admit Type: Outpatient Gender: Male Room: [place] [address] Referring MD: ADRIAN LANG MD Exam Type: Colonoscopy Indications: Follow-up for history of colon polyps of uncertain behavior, , Change in bowel habits, Constipation, Weight loss 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 Risks specifically discussed include but are not limited to medication reactions, missed lesions, bleeding, perforation, or the need for emergent surgery. Throughout the procedure, the patient's blood pressure, pulse, end-tidal CO2, and oxygensaturations were monitored continuously. The Olympus adult variable colonoscope [id number] #[id number] was introduced through the anus and advanced to the cecum, identified by the appendiceal orifice, ileocecal valve and palpation. The colonoscopy was somewhat difficult due to a redundant colon. Successful completion of the procedure was aided by applying abdominal pressure. The patient toleratedthe procedure fairly well. The quality of the bowel preparation was adequate to identify polyps. The ileocecal valve, appendiceal orifice, and rectumwere photographed. Complications: No immediate complications. Estimated blood loss: Minimal. Findings: Discontinuous areas of nonbleeding ulcerated mucosa with no stigmata of recent bleeding were present in the mid rectum. Biopsies were taken with a cold forceps for histology. Moderate edema in rectalvault prevented reflexion. Non-bleeding internal hemorrhoids were found during endoscopy. The hemorrhoids were moderate. The colon (entire examined portion) was moderately redundant. There is no endoscopic evidence of polyps or ulcerations in the sigmoid colon. Retroflexion in the right colon was performed. Impression: - Mucosal ulceration. Biopsied. ? Stercoral vsmucosal prolapse ulceration - Non-bleeding internal hemorrhoids. - Redundant colon. Recommendation: - I will send results of your biopsy to you andyour referring physician or provider. If you do notreceive notification within 3 weeks, please call ouroffice. - Return to GI office as previously scheduled. ADRIAN PARTIDA MD 10/20/2022 8:16:13 AM This report has been signed electronically. Number of Addenda: 0 Note Initiated On: 10/20/2022 7:43 AM Procedure Code(s): --- Professional --- 70389, Colonoscopy, flexible; with biopsy, single or multiple --- Technical --- 35872, Colonoscopy, flexible; with biopsy, single or multiple Diagnosis Code(s): --- Professional --- K63.3, Ulcer of intestine K64.8, Other hemorrhoids Z86.03, Personal history of neoplasm of uncertain behavior R19.4, Change in bowel habit K59.00, Constipation, unspecified R63.4, Abnormal weight loss Q43.8, Other specified congenital malformations of intestine --- Technical --- K63.3, Ulcer of intestine K64.8, Other hemorrhoids Z86.03, Personal history of neoplasm of uncertain behavior R19.4, Change in bowel habit K59.00, Constipation, unspecified R63.4, Abnormal weight loss Q43.8, Other specified congenital malformations of intestine CPT copyright 2021 [employer]. All rights reserved. The codes documented in this report are preliminary and upon health information coder reviewmay be revised to meet current compliance requirements. Procedure Date: 10/20/2022 7:43:[address] [place] [id number] us Unknown Unknown GI PROCEDURE ORDERABLES Final Result * HM DIABETES EYE EXAM FOR RESULT ENTRY ONLY (02/13/2021) HM EYE EXAM no retinopathy us Historical Provider HEALTH MAINTENANCE Final Result * Hepatitis C antibody, qualitative (08/22/2020 11:50 AM EDT) HCV NON-REACTIV E NON-REACTI VE [facility] Blood 08/22/2020 11:5 0 AM EDT 08/22/2020 11:58 AM EDT Adrian Lang MD LAB BLOOD ORDERABLES Final Result [facility] [address] [place] [address] * ENDOSCOPY, SIGMOID (04/22/2020 8:13 AM EST) Narrative Transcriptions Adrian Partida MD - 04/22/2020 8:13 AM EST Patient Name: Christiano Padilla Attending MD:: ADRIAN PARTIDA MD Procedure Date: 04/22/2020 8:13 AM Date of : 1950 Age: 69 Admit Type: Outpatient Gender: Male Room: [facility] 04 Referring MD: ADRIAN LANG MD Exam Type: Flexible Sigmoidoscopy Indications: High risk colon cancer surveillance: Personalhistory of colonic polyps, 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 Risks specifically discussed include but are not limited to medication reactions, missed lesions, bleeding, perforation, or the need for emergentsurgery. Throughout the procedure, the patient's bloodpressure, pulse, end-tidal CO2, and oxygen saturations were monitored continuously. The Olympus adult variable colonoscope CF-[id number] #1 was introduced through the anus and advanced to the descending colon. Theflexible sigmoidoscopy was accomplished without difficulty.The patient tolerated the procedure well. The quality of the bowel preparation was excellent. Complications: No immediate complications. Estimated blood loss: Minimal. Findings: The perianal and digital rectal examinations were normal. Pertinent negatives include normal sphincter tone. A localized area of mildly congested anderythematous mucosa was found in the distal sigmoid colon at 18cm smaller lesion. Area was successfully injected with3 mL Eleview for lesion assessment, and this injection appeared to lift the lesion adequately. This was biopsied with a hot snare for histology. No residual lesion noted. Non-bleeding hemorrhoids were found during retroflexion. The hemorrhoids were mild. Impression: - Congested and erythematous mucosa in the distal sigmoid colon. Injected. Biopsied. - Non-bleeding hemorrhoids. Recommendation: - I will send results of your biopsy to you and your referring physician or provider. If you do notreceive notification within 3 weeks, please call ouroffice. ADRIAN PARTIDA MD 04/22/2020 8:44:06 AM This report has been signed electronically. Number of Addenda: 0 Note Initiated On: 04/22/2020 8:13 AM Procedure Code(s): --- Professional --- 23405, Sigmoidoscopy, flexible; with removal of tumor(s), polyp(s),or other lesion(s) by snare technique 04023, Sigmoidoscopy, flexible; with directed submucosalinjection(s), any substance --- Technical --- 48377, Sigmoidoscopy, flexible; with removal of tumor(s), polyp(s),or other lesion(s) by snare technique 84674, Sigmoidoscopy, flexible; with directed submucosalinjection(s), any substance Diagnosis Code(s): --- Professional --- Z86.010, Personal history of colonic polyps K63.89, Other specified diseases of intestine --- Technical --- Z86.010, Personal history of colonic polyps K63.89, Other specified diseases of intestine CPT copyright 2018 [employer]. All rights reserved. The codes documented in this report are preliminary and upon health information coder reviewmay be revised to meet current compliance requirements. Procedure Date: 04/22/2020 8:13:[address] [place] [id number] Adrian Lang MD GI PROCEDURE ORDERABLES Ed ited Result - Final from Last 3 Months or Most Recently Relevant to Health Maintenance Insurance MEDICARE PART A & B [employer] MEDICARE REPLACEMENT MEDICARE PART A & B MEDICARE REPLACEMENT MEDICARE PART A & B MEDICARE PART A & B MEDICARE PART A & B MEDICARE REPLACEMENT MEDICARE PART A & B MEDICARE PART A & B MEDICARE REPLACEMENT MEDICARE PART A & B Member Subscriber Plan / Payer (Ef fective 2007-Present) Name:Cheng Padillao Member ID:[id number] Relation to Subscriber:Self Name:Christiano Padilla Subscriber ID:[id number] Payer ID:[id number] Group ID:Not on file Type:Medicare [facility] [address] [facility] MEDICARE REPLACEMENT MEDICARE PART A & B [facility] MEDICARE REPLACEMENT Advance Directives For more information, please contact: [phone] (9AM - 5PM [place], Wednesday-Wednesday) * Full Code (Latest Code Status on File) Date Activated Date Inactivated Comments 03/20/2024 5:28 PM Question Answer Comments Code Status Confirmed With: Patient * Full Code Date Activated Date Inactivated Comments 01/20/2023 8:47 PM 03/20/2024 5:28 PM Question Answer Comments Code Status Confirmed With: Patient * Full Code (Presumed) Date Activated Date Inactivated Comments 11/04/2017 9:11 AM 11/05/2017 6:24 AM * Full Code (Confirmed) Date Activated Date Inactivated Comments 10/14/2017 5:30 PM 10/17/2017 5:18 PM Question Answer Comments Code Status Confirmed With: Patient * Full Code (Confirmed) Date Activated Date Inactivated Comments 06/11/2017 2:05 PM 06/12/2017 4:18 PM Question Answer Comments Code Discussion Comments: pt Care Teams Cold Roller Relationship Specialty Start Date End Date Zena Sarmiento FNP [address] [place] [id number] PCP - General Nurse Practitioner 07/07/23 Travis Caballero DO [address] [place] [id number] [email or web address] Primary Oncologist Hematology and Oncology 10/23/22 Obed Barnes MD [address] [facility], [address] [place] [id number] [email or web address] Colon and Rectal Surgery 01/08/23 Luis F Pearson CNP [address] [place] [address] [email or web address] Nurse Practitioner 01/15/23 Lisa Denson RN [address] [place] [address] [email or web address] Registered Nurse Wound Care 08/19/23 Additional Source Comments The information contained in this document represents components of the legal health record. It is not the complete legal health record.[facility]
== END 2024-12-22 15:46 | disposition home or self-care (01) ==
LOC: HO.MRI 15:45
PROVIDERS: PCP Registered Nurse; Visit Provider Registered Nurse
DX: H93.11 Tinnitus, right ear (principal); R51.9 Headache, unspecified; H91.91 Unspecified hearing loss, right ear; Z85.038 Personal history of other malignant neoplasm of large intestine; Z85.46 Personal history of malignant neoplasm of prostate
CPT/HCPCS: 70553; A9585

== ENCOUNTER → 2024-12-22 15:57 | Outpatient (BNV) | payer OTHER, SELFPAY | PROVIDERS: PCP Registered Nurse; Visit Provider Radiology Diagnostic Radiology | DX: H93.11 Tinnitus, right ear (principal); H91.91 Unspecified hearing loss, right ear; R51.9 Headache, unspecified; R90.82 White matter disease, unspecified | CPT/HCPCS: 70553 ==

== ENCOUNTER 2025-01-02 08:45 | Outpatient (REF) | payer OTHER, SELFPAY ==
--- OUTSIDE RECORDS SUMMARY | 2025-01-02 09:32 | XMS_ITS | Clinical Summary ---
Author Organization [facility] Address [address] [place] [address] Phone Care Team Providers Care Candle Cutter Name Role Phone Travis Caballero DO Unavailable [phone] Obed Barnes MD Unavailable [phone] Luis F Pearson RN PALLIATIVE Unavailable [phone] [facility] Primary Care Provider [phone] Lisa Denson RN Unavailable [email or web address] Allergies Active Allergy Reactions Criticality Noted Date [...] will likely require office nurse visit with professor of criminal justice to assist in proper use of nebulizer. [...] 06/06/18; followed by [facility] Assessment & Plan (11/24/2021 9:33 AM [...] mass does not look like vegetation to floating operator Chronic gastritis 10/14/2017 Overview (10/14/2017): upper endoscopy by Dr. Partida 12/04/16 revealed H. pylori associated active chronic gastritis Assessment & Plan (10/14/2017 4:37 PM EDT): Continue PPI Atherosclerosis of [place] co ronary artery of [place] heart with angina pectoris 09/10/2017 Assessment & [...] diabetes hypertension hyperlipidemia, under the care of [facility]. Nuclear stress test recently negative, saw [...] to large intestine Overview (03/14/2024): Followed by [facility] urology, Dr. Servando Rodriguez 9 Leuprolide (Eligard/GnRH agonist) Abiraterone (Zytiga) Denosumab (prolia) 05/05 bone scan negative - 06/07 DEXA scan osteopenia - 01/05 Bone Scan New L5 changes - 01/05 PT-CT [facility] multiple small spinal metastases and question [...] reports having more recent routine labs at [facility], these can be requested On high intensity [...] lipid panel completed as ordered by his warehouse specialist. -Goal LDL <70 due to DM [...] no redness, no bleeding. Plan: Procedure Codes: 89585 Glucose monitoring, cont Assessment & Plan (10/06/2018 [...] glycemic control Has upcoming appt with our music educator staff, will return to meet with [...] for follow-up. He will follow up with [place] [facility] next week for echocardiogram findings Drug induced insomnia 06/14/20172020 Encounters Date Type Department Care Team Description [facility] [address] [address] Ev Oconnor, physicist astrophysics Refill 12/11/2024 2:00 PM EDT Infusion [facility] at [address] [address] Travis Caballero, Itzel Wren, Kendra Peoples Primary cancer of bone with metastasis to other site (Primary Dx); Malignant neoplasm of prostate 12/11/2024 1:13 PM EDT - 12/11/2024 11:59 PM EDT Hospital Encounter [address] [address] Travis Caballero DO Discharge Disposition: Home or Self Care 12/11/2024 Orders Only Merged With [facility] at [address] [address] Sherri Ballard, LUIS A 11/29/2024 8:00 AM EDT Office Visit [facility] at [address] [address] Travis Caballero, Christopher Hernandez Primary cancer of bone with metastasis to other site (Primary Dx) 11/29/2024 Telephone [facility] at [address] [address] Travis Caballero DO Initiate Treatment 11/22/2024 Refill [facility] at [address] [address] Ev Oconnor, physicist astrophysics Refill 11/20/2024 2:03 PM EDT - 11/20/2024 11:59 PM EDT Hospital Encounter [facility], [address] [address] Travis Caballero DO Miranda-Leon, Wisinley Discharge Disposition: Home or Self Care 11/09/2024 2:30 PM EDT Office Visit [facility] at [address] [address] Travis Caballero, Jeimy Reynoldsa R Midline low back pain with bilateral sciatica, unspecified chronicity (Primary Dx) 11/09/2024 1:08 PM EDT - 11/09/2024 11:59 PM EDT Hospital Encounter [facility] [address] [place] [address] Travis Caballero DO Discharge Disposition: Home or Self Care 11/09/2024 Procedure Pass [facility], Mri [address] [address] 11/07/2024 10:36 AM EDT - 11/07/2024 2:12 PM EDT Emergency [facility] [address] [place] [address] Discharge Disposition: Home or Self Care 11/07/2024 Procedure Pass [facility], Ct Scan - [address] [address] 10/26/2024 Documentation [facility] [address] [place] [address] Alashawn, Abeer 10/26/2024 Documentation [facility] [address] [place] [address] Alabed, Abeer 10/25/2024 Refill [facility] at [address] [address] Ev Oconnor RN Medication Refill 10/14/2024 1:10 PM EDT - 10/14/2024 2:54 PM EDT Emergency [facility] [address] [place] [address] Discharge Disposition: Home or Self Care 10/12/2024 Telephone [facility] [address] [place] [address] [place] [address] Honey Moyer MA Clinical Notes 10/11/2024 Telephone [facility] [address] [place] [address] Honey Moyer MA 10/10/2024 10:40 AM EDT Office Visit [facility] [address] [place] [address] Katherine Florentino CNP Type 2 diabetes mellitus with microalbuminuria, without long-term current use of insulin (Primary Dx); Type 2 diabetes, controlled, with neuropathy 10/03/2024 11:20 AM EDT Office Visit [facility] [address] [place] [address] Dr Ricardo, DOMINGO [address] Katherine Florentino CNP Carla, Christopher Type 2 diabetes mellitus with microalbuminuria, without long-term current use of insulin (Primary Dx); Type 2 diabetes, controlled, with neuropathy; Primary hypertension; Hyperlipidemia LDL goal <70 from Last 3 Months Immunizations Immunization Administration [...] mellitus Half-Sister Heart attack Half-Sister non smoker (randy rnal half sister) Diabetes mellitus Mother Prostate [...] = 0.6 oz pur e alcohol) quit 2018 Home Health Assessment: Transportation Answer Date Recorded [...] Info) Description 01/31/2025 8:00 AM EDT Appointment [facility] [address] [place] [place] [address] Travis Caballero [address] [address] [email or web address] 01/31/2025 9:00 AM EDT Office Visit Merged With [facility] at [facility] [address] [place] [address] Travis Caballero DO [address] [place] [address] [email or web address] Health Maintenance Due Date Last Done Comments COLOGUARD 09/13/1995 FIT TEST 09/13/1995 FOBT 09/13/1995 VIRTUAL [...] this topic Medical Devices Implanted Type Area Piper Installer Device Identifier Shelf Expiration Date Model / Serial / Lot Mesh Synthetic [id number] Abdominal Collagen Coating Rectangle Polyester Parietex W/Out Fixation Suture - [id number] Implanted:Qty: 1 on 03/20/2024 by Obed Barnes MD at [facility] STANDARD N/A: Abdomen [employer] [id number] 02/14/2028 [id number] / / [id number] Description:The implant type , laterality (when applicable), [...] included. SODIUM 133 133 - 146 mmol/L [facility] POTASSIUM 4.6 3.3 - 5.1 mmol/L [facility] CHLORIDE 100 96 - 108 mmol/L [facility] CO2 20(L) 21 - 35 mmol/L [facility] BUN 18 6 - 19 mg/dL [facility] CREATININE 1.00 0.5 - 1.5 mg/dL [facility] GLUCOSE 290(H) 70 - 99 mg/dL [facility] ALBUMIN 4.1 3.9 - 4.8 g/dL [facility] TOTAL PROTEIN 7.3 6.5 - 8.0 g/dL [facility] CALCIUM 9.8 8.4 - 10.3 mg/dL [facility] ALKALINE PHOSPHATASE 204(H) 39 - 117 U/L [facility] TOTAL BILIRUBIN 0.5 0.0 - 1.2 mg/dL [facility] AST 16 0 - 37 U/L [facility] ALT 14 0 - 40 U/L [facility] GLOBULIN 3.2 1 - 4.8 g/dL [facility] EGFR 79 >59 mL/min/1.7 3m2 [facility] Comment:Estimated glomerular filtration rate calculated using the CKD-EPI refit equation. ANION GAP 18 10 - 20 mmol/L [facility] Blood 12/11/2024 1:13 PM EDT 12/11/2024 1:30 PM EDT us Travis Caballero DO LAB BLOOD ORDERABLES Final Result [address] [address] * (ABNORMAL) PSA diagnostic (monitoring) (12/11/2024 1:13 PM EDT) Only the most recent of2 resultswithin the time period is included. PSA 5.20(H) 0 - 4.00 ng/mL [facility] Comment: Test Methodology Isael e801 Patient results determined by assays using different manufacturers or methods may not be comparable. Blood 12/11/2024 1:13 PM EDT 12/11/2024 1:30 PM EDT us Robles W Federico DO LAB BLOOD ORDERABLES Final Result [address] [address] * (ABNORMAL) CBC and differential (12/11/2024 1:13 PM EDT) Only the most recent of2 resultswithin the time period is included. WBC 9.65 4.00 - 11.00 K/uL [facility] RBC 5.06 4.50 - 5.90 M/uL [facility] HGB 12.1(L) 13.5 - 17.5 g/dL [facility] HCT 38.8(L) 41.0 - 53.0 % [facility] PLT 283 150 - 450 K/uL [facility] MCV 76.7(L) 80.0 - 100.0 fL [facility] MCH 23.9(L) 27.0 - 31.0 pg [facility] MCHC 31.2(L) 32.0 - 36.0 g/dL [facility] RDW 15.9(H) 11.5 - 14.5 % [facility] MPV 10.5 8.4 - 12.0 fL [facility] NRBC 0.00 0.00 /100 WBCs [facility] ABSOLUTE NRBC 0.00 0.00 K/uL [facility] DIFF METHOD Auto [facility] NEUTS 71.6 48.0 - 76.0 % [facility] LYMPHS 20.9 18.0 - 41.0 % [facility] MONOS 4.4 4.0 - 11.0 % [facility] EOS 2.1 0.0 - 5.0 % [facility] BASOS 0.8 0.0 - 1.5 % [facility] Granulocytes, immature (%) 0.2 0.0 - 0.9 % [facility] ABSOLUTE NEUTS 6.91 1.92 - 7.60 K/uL [facility] ABSOLUTE LYMPHS 2.02 0.72 - 4.10 K/uL [facility] ABSOLUTE MONOS 0.42 0.16 - 1.10 K/uL [facility] ABSOLUTE EOS 0.20 0.00 - 0.50 K/uL [facility] ABSOLUTE BASOS 0.08 0.00 - 0.15 K/uL [facility] Granulocytes, immature 0.02 0.00 - 0.09 K/uL [facility] Blood 12/11/2024 1:13 PM EDT 12/11/2024 1:30 PM EDT us Travis Caballero DO LAB BLOOD ORDERABLES Final Result Performing Organization Address City/State/[facility] Co de Phone Number [facility] [address] [place] [address] * MRI LUMBAR SPINE (NEURO) WITH AND [...] clinician's provided indication for this examination in [facility]: *Low back pain, cancer suspected; include t11 TECHNIQUE: MRI LUMBAR SPINE (NEURO) WITH AND WITHOUT CONTRAST COMPARISON: CT ABDOMEN/PELVIS WITH CONTRAST ; NM PET CTPROSTATE CANCER IMAGING FINDINGS: Alignment and Vertebrae: There is mild straightening of the usual lumbarlordosis. There is minimal retrolisthesis of L5 on S1. No acute compression fracture. Marrow: There are T1 hypointense lesions with mild enhancement sllovnmlsL25, L2, L4, L5, S1, and S2 vertebrae [...] indication for this examination in Epic: * Hearing loss, mixed; hearing changes, tinnitus, [...] provided indication for this examination in Epic: *Hearing loss, mixed; hearing changes, tinnitus, headaches, [...] Hemoglobin A1c 9.2(A) 4.2 - 5.6 % [facility] Other 10/03/2024 11:2 9 AM EDT Katherine Florentino CNP POINT OF CARE TEST ORDERABLES Final Result Performing Organization Address City/[facility] Co de Phone Number [phone] [place] [address] * (ABNORMAL) Microalbumin/creatinine ratio, random urine (08/11/2023 7:50 AM EDT) URINE MICROALBUMIN 61.3(H) 0 - 2.3 mg/dL [facility] URINE CREATININE 150 mg/dL [facility] MICROALB/CRE RATIO 408.7(H) 0 - 20 mg/g Cre [facility] Urine (Urine) 08/11/2023 7:5 0 AM EDT 08/11/2023 7:53 AM EDT Katherine Florentino RN PALLIATIVE URINE [place]AB[place] [address] * ENDOSCOPY, COLON (10/20/2022 7:43 AM EDT) Narrative Transcriptions Adrian Partida MD - 10/20/2022 7:43 AM EDT [facility] Patient Name: Christiano Broussarduez Attending MD:: ADRIAN PARTIDA MD, Procedure Date: 10/20/2022 7:43 AM Date of : 1950 Age: 72 Admit Type: Outpatient Gender: Male Room: [place] [address] Referring MD: ADRIAN LANG MD Exam Type: Colonoscopy Indications: Follow-up for history of colon polyps of uncertain behavior, , Change in bowel habits, Constipation, Weight loss well differentiated neuroendocrinepolyp sigmoid colon 02/21/2020 and 05/2021 Medications: Monitored Anesthesia Care Procedure: Informed [...] monitored continuously. The Olympus adult variable colonoscope [id number] #6 was introduced through the anus and [...] 7:43 AM Procedure Code(s): --- Professional --- 91004, Colonoscopy, flexible; with biopsy, single or multiple --- Technical --- 20198, Colonoscopy, flexible; with biopsy, single or multiple [...] congenital malformations of intestine CPT copyright 2021 [employer]. All rights reserved. The codes documented in this report are preliminary and upon ed special education teacher reviewmay be revised to meet current compliance requirements. Procedure Date: 10/20/2022 7:43:[address] [place] [id number] us Unknown Unknown GI PROCEDURE ORDERABLES Final Result * HM DIABETES EYE EXAM FOR RESULT ENTRY ONLY (02/13/2021) EYE EXAM no retinopathy us Historical Provider HEALTH MAINTENANCE Final Result * Hepatitis C antibody, qualitative (08/22/2020 11:50 AM EDT) HCV NON-REACTIV E NON-REACTI VE [facility] Blood 08/22/2020 11:5 0 AM EDT 08/22/2020 11:58 AM EDT us Adrian Lang MD LAB BLOOD ORDERABLES Final Result Performing Organization Address City/State/[facility] Co de Phone Number [address] [address] * ENDOSCOPY, SIGMOID (04/22/2020 8:13 AM EST) Narrative Transcriptions Adrian Partida MD - 04/22/2020 8:13 AM EST Patient Name: Christiano Padilla Attending MD:: ADRIAN PARTIDA MD Procedure Date: 04/22/2020 8:13 AM Date of : 1950 Age: 69 Admit Type: Outpatient Gender: Male Room: [facility] 04 Referring MD: ADRIAN LANG MD Exam [...] monitored continuously. The Olympus adult variable colonoscope [id number] #1 was introduced through the anus and [...] 8:13 AM Procedure Code(s): --- Professional --- 37292, Sigmoidoscopy, flexible; with removal of tumor(s), polyp(s),or other lesion(s) by snare technique 19495, Sigmoidoscopy, flexible; with directed submucosalinjection(s), any substance --- Technical --- 49272, Sigmoidoscopy, flexible; with removal of tumor(s), polyp(s),or other lesion(s) by snare technique 86119, Sigmoidoscopy, flexible; with directed submucosalinjection(s), any substance Diagnosis Code(s): --- Professional --- Z86.010, Personal history of colonic polyps K63.89, Other specified diseases of intestine --- Technical --- Z86.010, Personal history of colonic polyps K63.89, Other specified diseases of intestine CPT copyright 2018 [employer]. All rights reserved. The codes documented in this report are preliminary and upon ed special education teacher reviewmay be revised to meet current compliance requirements. Procedure Date: 04/22/2020 8:13:26 AM [address] [place] [address] Adrian Lang MD GI PROCEDURE ORDERABLES Ed ited Result - Final from Last 3 Months or Most Recently Relevant to Health Maintenance Insurance MEDICARE PART A & B [facility] MEDICARE REPLACEMENT MEDICARE PART A & B MEDICARE REPLACEMENT MEDICARE PART A & B MEDICARE PART A & B MEDICARE PART A & B MEDICARE REPLACEMENT MEDICARE PART A & B MEDICARE PART A & B MEDICARE REPLACEMENT MEDICARE PART A & B [facility] MEDICARE REPLACEMENT MEDICARE PART A & B MEDICARE REPLACEMENT Advance Directives For more information, please contact: [phone] (9AM - 5PM [facility], Wednesday-Wednesday) * Full Code (Latest Code Status [...] Comments Code Discussion Comments: pt Care Teams Candle Cutter Relationship Specialty Start Date End Date Zena Sarmiento FNP [address] [place] [address] PCP - General Nurse Practitioner 07/07/23 Travis Caballero DO [address] [place] [address] [email or web address] Primary Oncologist Hematology and Oncology 10/23/22 Obed Barnes MD [address] [facility], [address] [place] [address] Colon and Rectal Surgery 01/08/23 Luis F Pearson CNP [address] [place] [address] [email or web address] Nurse Practitioner 01/15/23 Lisa Denson RN [address] [place] [address] [email or web address] Registered Nurse Wound Care 08/19/23 Additional Source Comments The information contained in this document represents components of the legal health record. It is not the complete legal health record[facility]
== END 2025-01-02 08:46 | disposition home or self-care (01) ==
LOC: HO.SH 08:45
PROVIDERS: Visit Provider Registered Nurse
DX: Z01.118 Encounter for examination of ears and hearing with other abnormal findings (principal); H90.3 Sensorineural hearing loss, bilateral
CPT/HCPCS: 92557; 92567